=== PATIENT | female | born 1990 | race Caucasian/White ===

== ENCOUNTER → 2016-11-16 | Outpatient (CLI) | payer MEDICAID ==
--- NOTE | 2016-11-16 12:40 | Diagnostic Imaging Report ---
Indication: Finger pain after injury. Comparison: None available. Technique: 3 views of the right fifth digit. Findings: 1. No acute fracture or traumatic malalignment. Joint spaces are well-maintained. No osseous erosions. Mild soft tissue swelling. No radiopaque foreign body. Impression: 1. No acute fracture or traumatic malalignment of the right small finger. Report was called to Poppy/DAPHNE Carolina by sharyn at 12:42 p.m. Dictated by: Dictated on workstation # [id number]
== END ==
LOC: RAD 12:12
PROVIDERS: ATTEND Nurse Practitioner Family
DX: M79.644 Pain in right finger(s) (principal); X58.XXXA Exposure to other specified factors, initial encounter
CPT/HCPCS: 73140

== ENCOUNTER 2017-01-04 16:07 | Emergency (ER) | payer MEDICAID ==
[~2017-01-04] VITALS: Ht 167.6 cm; Wt 86.2 kg
--- NOTE | 2017-01-04 16:12 | ED GU-Female ---
General Stated Complaint: HEAVY VAG BLEEDING/ABD/LOWER BACK PAIN Source: patient, family Exam Limitations: no limitations History of Present Illness Time seen by provider: 16:11 Initial Comments This 26-year-old female presents with heavy vaginal bleeding. Her last normal period was one week ago. The patient has had heavy vaginal bleeding for the last 24 hours. Patient denies passing tissue. She has been using control pills. Patient's a white female. Her last was born 9 months ago. Allergies and Home Medications Allergies Uncoded Allergies: PENICILLIN (Allergy, Unknown, 01/04/17) Constitutional: No chills, No fever EENTM: No ear pain, No vision loss Respiratory: No cough, No short of breath Cardiovascular: No chest pain Gastrointestinal: No abdominal pain, No diarrhea, No nausea, No vomiting Genitourinary: denies burning, denies dysuria, denies frequency, pain ( cramping pelvic pain with associated vaginal bleeding) Musculoskeletal: back pain Skin: No change in color, No rash Psychiatric/Neurological: No Symptoms Reported Endocrine: No Symptoms Reported Hematologic/Lymphatic: No Symptoms Reported Past Icymdse-Lujoyc-Yhajut Hx Patient Social History Recent Foreign Travel: No Contact w/Someone Who Travel: No Reviewed Nursing Assessment Reviewed/Agree w Nursing PMH: Yes Physical Exam Vital Signs Vital Sign - Last 12Hours 01/04/17 16:17 Temp 98.6 Pulse 88 Resp 14 B/P (MAP) 123/81 Pulse Ox 98 O2 Delivery Room Air Capillary Refill : General Appearance: WD/WN, no apparent distress HEENT: normal ENT inspection Neck: normal inspection Cardiovascular: normal peripheral pulses, regular rate, rhythm, no murmur Respiratory: chest non-tender, lungs clear, normal breath sounds Gastrointestinal: non tender, soft Pelvic: normal external exam, vaginal bleeding (the os is closed there is a small amount of vaginal bleeding present in the vaginal vault. The uterus was essentially unremarkable on bimanual exam. There was no cervical motion tenderness. No adnexal masses were appreciated.) Back: normal inspection Extremities: normal range of motion, normal inspection Neurologic/Psychiatric: no motor/sensory deficits, alert, normal mood/affect Skin: normal color, warm/dry Progress/Results/Core Measures Results/Orders Lab Results Laboratory Tests Test 01/04/17 16:25 01/04/17 16:32 Range/Units White Blood Count 7.8 4.3-11.0 10^3/uL Red Blood Count 5.09 4.35-5.85 10^6/uL Hemoglobin 13.6 11.5-16.0 G/DL Hematocrit 41 35-52 % Mean Corpuscular Volume 81 80-99 FL Mean Corpuscular Hemoglobin 27 25-34 PG Mean Corpuscular Hemoglobin Concent 33 32-36 G/DL Red Cell Distribution Width 13.9 10.0-14.5 % Platelet Count 267 130-400 10^3/uL Mean Platelet Volume 11.4 H 7.4-10.4 FL Neutrophils (%) (Auto) 59 42-75 % Lymphocytes (%) (Auto) 31 12-44 % Monocytes (%) (Auto) 8 0-12 % Eosinophils (%) (Auto) 2 0-10 % Basophils (%) (Auto) 1 0-10 % Neutrophils # (Auto) 4.6 1.8-7.8 X 10^3 Lymphocytes # (Auto) 2.4 1.0-4.0 X 10^3 Monocytes # (Auto) 0.7 0.0-1.0 X 10^3 Eosinophils # (Auto) 0.2 0.0-0.3 10^3/uL Basophils # (Auto) 0.0 0.0-0.1 10^3/uL Urine Test NEGATIVE NEGATIVE My Orders Orders - NIKHIL LEMUS MD Cbc With Automated Diff (01/04/17 16:10) Hcg,Qualitative Urine (01/04/17 16:10) Ketorolac Injection (Toradol Injection) (01/04/17 16:45) Medications Given in ED Current Medications Medications Dose Ordered Sig/Denia Route Start Time Stop Time Status Last Admin Dose Admin Ketorolac Tromethamine 60 mg ONCE ONCE IM 01/04/17 16:45 01/04/17 16:46 DC 01/04/17 16:45 60 MG Vital Signs/I&O Vital Sign - Last 12Hours 01/04/17 16:17 Temp 98.6 Pulse 88 Resp 14 B/P (MAP) 123/81 Pulse Ox 98 O2 Delivery Room Air Progress Note : Time: 16:46 Progress Note The patient received 60 mg of Toradol IM. 1700 hours. The patient's pain was significantly improved with the Toradol. Patient's urine test was negative. Her CBC was unremarkable. I discussed findings with patient and family. The patient was agreeable to following up with [facility]. I recommended oral Toradol for any residual discomfort. I asked that she return if she had any acute problems or questions. I discussed possibility of an ultrasound for further evaluation if needed. Departure Impression Impression: Primary Impression: Dysfunctional uterine bleeding Disposition: HOME, SELF-CARE Condition: Improved Departure-Patient Inst. Decision time for Depature: 17:07 [place] [facility] [place] Primary Care Physician Patient Instructions: IRREGULAR VAGINAL BLEEDING Add. Discharge Instructions: Close follow-up with critical access hospital tomorrow. Toradol for pain. Return if any problems. NIKHIL LEMUS MD Jan 04, 2017 16:12
[2017-01-04 16:36] LABS: BASOPHILS % (AUTO) 1 % (0-10); EOSINOPHILS # (AUTO) 0.2 10^3/uL (0.0-0.3); EOSINOPHILS % (AUTO) 2 % (0-10); LYMPHOCYTES # (AUTO) 2.4 X 10^3 (1.0-4.0); LYMPHOCYTES % (AUTO) 31 % (12-44); MEAN CORPUSCULAR HEMOGLOBIN 27 PG (25-34); MEAN CORPUSCULAR HGB CONC 33 G/DL (32-36); MEAN CORPUSCULAR VOLUME 81 FL (80-99); MEAN PLATELET VOLUME 11.4 FL (7.4-10.4); MONOCYTES # (AUTO) 0.7 X 10^3 (0.0-1.0); MONOCYTES % (AUTO) 8 % (0-12); NEUTROPHILS # (AUTO) 4.6 X 10^3 (1.8-7.8); NEUTROPHILS % (AUTO) 59 % (42-75); PLATELET COUNT 267 10^3/uL (130-400); RED BLOOD COUNT 5.09 10^6/uL (4.35-5.85); RED CELL DISTRIBUTION WIDTH 13.9 % (10.0-14.5); WHITE BLOOD COUNT 7.8 10^3/uL (4.3-11.0)
[2017-01-04] MEDS ORDERED: KETOROLAC 60 MG/2 ML VIAL IM ONE (16:45)
[2017-01-04 17:13] VITALS: BP 123/81
== END 2017-01-04 17:15 | disposition home or self-care (01) ==
LOC: EDUNIT# 16:07 → ER 16:09
DX: N93.8 Other specified abnormal uterine and vaginal bleeding (principal)
CPT/HCPCS: 36415; 84703; 85025; 96372; 99284

== ENCOUNTER → 2017-01-13 | Outpatient (CLI) | payer MEDICAID ==
--- NOTE | 2017-01-13 12:48 | Diagnostic Imaging Report ---
INDICATION: Dysfunctional uterine bleeding. FINDINGS: Uterus measures 7.8 x 6.4 x 4.8 cm. There are no myometrial masses. Endometrial stripe measures 4 mm. Right ovary measures 4.9 x 2.5 x 3.2 cm. Left ovary measures 4.1 x 2.6 x 3.6 cm. There are follicular cysts within both ovaries. No adnexal masses are present. IMPRESSION: Normal pelvic ultrasound. Dictated by: Dictated on workstation # [id number]
== END ==
LOC: RAD 09:46
PROVIDERS: ATTEND Nurse Practitioner Community Health
DX: N93.8 Other specified abnormal uterine and vaginal bleeding (principal)
CPT/HCPCS: 76830

== ENCOUNTER 2017-05-27 13:38 | Emergency (ER) | payer SELFPAY ==
[~2017-05-27] VITALS: Ht 167.6 cm; Wt 88.9 kg
[2017-05-27] MEDS ORDERED: PNV1TABL9 PO (14:42)
[2017-05-27 15:50] LABS: BASOPHILS % (AUTO) 1 % (0-10); EOSINOPHILS # (AUTO) 0.1 10^3/uL (0.0-0.3); EOSINOPHILS % (AUTO) 2 % (0-10); LYMPHOCYTES # (AUTO) 1.9 X 10^3 (1.0-4.0); LYMPHOCYTES % (AUTO) 29 % (12-44); MEAN CORPUSCULAR HEMOGLOBIN 26 PG (25-34); MEAN CORPUSCULAR HGB CONC 33 G/DL (32-36); MEAN CORPUSCULAR VOLUME 80 FL (80-99); MEAN PLATELET VOLUME 11.9 FL (7.4-10.4); MONOCYTES # (AUTO) 0.4 X 10^3 (0.0-1.0); MONOCYTES % (AUTO) 6 % (0-12); NEUTROPHILS # (AUTO) 4.2 X 10^3 (1.8-7.8); NEUTROPHILS % (AUTO) 63 % (42-75); PLATELET COUNT 244 10^3/uL (130-400); RED BLOOD COUNT 4.92 10^6/uL (4.35-5.85); RED CELL DISTRIBUTION WIDTH 14.1 % (10.0-14.5); WHITE BLOOD COUNT 6.7 10^3/uL (4.3-11.0)
[2017-05-27 16:09] LABS: ALANINE AMINOTRANSFERASE 7 U/L (0-55); ALBUMIN 3.8 GM/DL (3.2-4.5); ANION GAP 7 MMOL/L (5-14); ASPARTATE AMINO TRANSFERASE 13 U/L (5-34); BILIRUBIN,TOTAL 0.3 MG/DL (0.1-1.0); BLOOD UREA NITROGEN 8 MG/DL (7-18); BUN/CREATININE RATIO 12; CALCIUM 9.2 MG/DL (8.5-10.1); CARBON DIOXIDE 26 MMOL/L (21-32); CHLORIDE 109 MMOL/L (98-107); CREATININE SERUM 0.66 MG/DL (0.60-1.30); GFR ESTIMATED > 60; GLUCOSE 88 MG/DL (70-105); POTASSIUM 3.9 MMOL/L (3.6-5.0); SODIUM 142 MMOL/L (135-145)
[2017-05-27 16:32] LABS: BILIRUBIN,URINE NEGATIVE (NEGATIVE); KETONES,URINE 1+ (NEGATIVE); LEUKOCYTE ESTERASE ,URINE 1+ (NEGATIVE); NITRITE,URINE NEGATIVE (NEGATIVE); PH,URINE 6 (5-9); PROTEIN,URINE NEGATIVE (NEGATIVE); UROBILINOGEN,URINE NORMAL (NORMAL)
[2017-05-27] MEDS ORDERED: diphenhydrAMINE 50 MG/ML INJ (BENADRYL) IV STA (16:48)
[2017-05-27] MEDS ORDERED: KETOROLAC 60 MG/2 ML VIAL IM STA (16:48)
[2017-05-27] MEDS ORDERED: ONDANSETRON 4 MG (ZOFRAN) ORAL DISSOLVE TAB SL STA (16:48)
[2017-05-27] MEDS ORDERED: DEXAMETHASONE PF 10 MG/ML (DECADRON) VIAL IM STA (16:48)
[2017-05-27] MEDS ORDERED: DEXAMETHASONE 10 MG/ML (DECADRON) 1 ML VIAL ONE (17:01)
[2017-05-27] MEDS ORDERED: diphenhydrAMINE 50 MG/ML INJ (BENADRYL) IM ONE (17:15)
--- NOTE | 2017-05-27 17:41 | ED GI ---
General Chief Complaint: General Problems/Pain Stated Complaint: N,V,D Nursing Triage Note: Vomiting for 1 1/2wks, reports that she may be , also having vag bleeding. Headache started this morning Sepsis Screen: No Definite Risk History of Present Illness Time Seen By Provider: 15:00 Initial Comments 26-year-old female Patient complains of vomiting for approximately one to 2 weeks, it's intermittent some days it will be 1-2 times other days it will be 3-4. She states she's had previous history of gallbladder disease and been told she needed to have it removed. She also reports that she believes she is , and that in the past it has been 5 months before her test by urine will be positive. She was taking oral contraceptives and stopped at midcycle because of the nausea. She reports eating normal meals today. Her LMP was May 17. She is also requesting a note for work. Timing/Duration: Changing Over Time Severity/Quality: Mild Location: Generalized Abdomen Radiation: No Radiation, LLQ Modifying Factors: Improves With Resting Associated Symptoms: No Back Pain, No Chest Pain, No Diaphoresis, No Fever/ Chills, No Fatigue, Headache, No Heartburn, Nausea/Vomiting, No Rash, No Shortness of Air, No Swelling/Mass in Abdomen, No Syncope, No Weakness Allergies and Home Medications Allergies Coded Allergies: Penicillins (Unverified Allergy, Unknown, 05/27/17) aripiprazole (Unverified Allergy, Unknown, 05/27/17) Home Medications Ondansetron 8 Mg Tab.rapdis, 8 MG PO Q8H, #6 Ref 0 Prescribed by: LITZY LOCKHART on 05/27/17 4642 Pnv Cmb#21/Iron/Folic Acid 1 Each Tablet, 1 EACH PO DAILY, (Reported) Review of Systems Constitutional: no symptoms reported Gastrointestinal: See HPI, Nausea, Vomiting Genitourinary: See HPI, Discharge (vaginal bleeding) Psychiatric/Neurological: See HPI, Headache All Other Systems Reviewed Negative Unless Noted: Yes Past Grvoouk-Qukemt-Wiinla Hx Patient Social History Alcohol Use: Rarely Uses Recreational Drug Use: No Smoking Status: Former Smoker Former Smoker, Quit: Jun 22, 2011 Recent Foreign Travel: No Contact w/Someone Who Travel: No Recent Infectious Disease Expo: No Recent Hopitalizations: No Immunizations Up To Date Date of Influenza Vaccine: Mar 22, 2017 Seasonal Allergies Seasonal Allergies: No Surgeries History of Surgeries: Yes (eye surgery) Surgeries: Section Respiratory History of Respiratory Disorde: No Cardiovascular History of Cardiac Disorders: No Neurological History of Neurological Disord: No Reproductive System Last Menstrual Period: May 17, 2017 Hx : 5 Hx Para: 3 Female Reproductive Disorders: Polycystic Ovarian Dis Genitourinary History of Genitourinary Disor: No Gastrointestinal History of Gastrointestinal Di: No Musculoskeletal History of Musculoskeletal Dis: No Endocrine History of Endocrine Disorders: No HEENT History of HEENT Disorders: No Cancer History of Cancer: No Psychosocial History of Psychiatric Problem: No Integumentary History of Skin or Integumenta: Yes Blood Transfusions History of Blood Disorders: No Physical Exam Vital Signs VS - Last 72 Hours, by Label 05/27/17 05/27/17 14:17 17:49 Temp 98.7 Pulse 84 66 Resp 16 18 B/P (MAP) 150/65 (93) Pulse Ox 97 98 O2 Delivery Room Air Capillary Refill : Less Than 3 Seconds General Appearance: WD/WN, no apparent distress HEENT: PERRL/EOMI, normal ENT inspection, TMs normal, pharynx normal, No photophobia Neck: non-tender, full range of motion, supple, normal inspection Respiratory: chest non-tender, lungs clear, normal breath sounds Cardiovascular: normal peripheral pulses, regular rate, rhythm, no murmur Gastrointestinal: normal bowel sounds, soft, No distended, No guarding, No rebound, tenderness (general lysed), other (negative Meza sign) Extremities: normal range of motion, non-tender, normal inspection Back: normal inspection, no CVA tenderness, no vertebral tenderness Neurologic/Psychiatric: no motor/sensory deficits, alert, normal mood/affect, oriented x 3 Skin: normal color, warm/dry Progress/Results/Core Measures Results/Orders Lab Results Laboratory Tests Test 05/27/17 15:35 05/27/17 15:43 05/27/17 16:20 Range/Units Serum Test, Qualitative NEGATIVE NEGATIVE White Blood Count 6.7 4.3-11.0 10^3/uL Red Blood Count 4.92 4.35-5.85 10^6/uL Hemoglobin 12.8 11.5-16.0 G/DL Hematocrit 39 35-52 % Mean Corpuscular Volume 80 80-99 FL Mean Corpuscular Hemoglobin 26 25-34 PG Mean Corpuscular Hemoglobin Concent 33 32-36 G/DL Red Cell Distribution Width 14.1 10.0-14.5 % Platelet Count 244 130-400 10^3/uL Mean Platelet Volume 11.9 H 7.4-10.4 FL Neutrophils (%) (Auto) 63 42-75 % Lymphocytes (%) (Auto) 29 12-44 % Monocytes (%) (Auto) 6 0-12 % Eosinophils (%) (Auto) 2 0-10 % Basophils (%) (Auto) 1 0-10 % Neutrophils # (Auto) 4.2 1.8-7.8 X 10^3 Lymphocytes # (Auto) 1.9 1.0-4.0 X 10^3 Monocytes # (Auto) 0.4 0.0-1.0 X 10^3 Eosinophils # (Auto) 0.1 0.0-0.3 10^3/uL Basophils # (Auto) 0.0 0.0-0.1 10^3/uL Sodium Level 142 135-145 MMOL/L Potassium Level 3.9 3.6-5.0 MMOL/L Chloride Level 109 H 98-107 MMOL/L Carbon Dioxide Level 26 21-32 MMOL/L Anion Gap 7 5-14 MMOL/L Blood Urea Nitrogen 8 7-18 MG/DL Creatinine 0.66 0.60-1.30 MG/DL Estimat Glomerular Filtration Rate > 60 BUN/Creatinine Ratio 12 Glucose Level 88 70-105 MG/DL Calcium Level 9.2 8.5-10.1 MG/DL Total Bilirubin 0.3 0.1-1.0 MG/DL Aspartate Amino Transf (AST/SGOT) 13 5-34 U/L Alanine Aminotransferase (ALT/SGPT) 7 0-55 U/L Alkaline Phosphatase 92 40-136 U/L Total Protein 7.0 6.4-8.2 GM/DL Albumin 3.8 3.2-4.5 GM/DL Urine Color YELLOW Urine Clarity SLIGHTLY CLOUDY Urine pH 6 5-9 Urine Specific [place]field 1.025 H 1.016-1.022 Urine Protein NEGATIVE NEGATIVE Urine Glucose (UA) NEGATIVE NEGATIVE Urine Ketones 1+ H NEGATIVE Urine Nitrite NEGATIVE NEGATIVE Urine Bilirubin NEGATIVE NEGATIVE Urine Urobilinogen NORMAL NORMAL MG/DL Urine Leukocyte Esterase 1+ H NEGATIVE Urine RBC (Auto) 5+ H NEGATIVE Urine RBC 5-10 H /HPF Urine WBC 2-5 /HPF Urine Squamous Epithelial Cells 10-25 H /HPF Urine Crystals NONE /LPF Urine Bacteria MODERATE H /HPF Urine Casts NONE /LPF Urine Mucus MODERATE H /LPF Urine Culture Indicated NO My Orders Orders - RICHYLITZY Cbc With Automated Diff (05/27/17 14:51) Comprehensive Metabolic Panel (05/27/17 14:51) Ua Culture If Indicated (05/27/17 14:51) Hcg,Qualitative Serum (05/27/17 15:45) Ketorolac Injection (Toradol Injection) (05/27/17 16:48) Diphenhydramine Injection (Benadryl Inje (05/27/17 16:48) Dexamethasone Pf Injection (Decadron Pf (05/27/17 16:48) Ondansetron Oral Dissolve Tab (Zofran (05/27/17 16:48) Dexamethasone Injection (Decadron Inject (05/27/17 17:01) Diphenhydramine Injection (Benadryl Inje (05/27/17 17:15) Medications Given in ED Current Medications Medications Dose Ordered Sig/Denia Route Start Time Stop Time Status Last Admin Dose Admin Dexamethasone Sodium Phosphate 10 mg STK-MED ONCE .ROUTE 05/27/17 17:01 05/27/17 17:03 DC 05/27/17 17:16 10 MG Diphenhydramine HCl 50 mg ONCE ONCE IM 05/27/17 17:15 05/27/17 17:16 DC 05/27/17 17:17 50 MG Vital Signs/I&O Vital Sign - Last 12Hours 05/27/17 05/27/17 14:17 17:49 Temp 98.7 Pulse 84 66 Resp 16 18 B/P (MAP) 150/65 (93) Pulse Ox 97 98 O2 Delivery Room Air Blood Pressure Mean: 93 Progress Note : Time: 15:00 Progress Note Initial evaluation completed, recommended labs and normal saline 1 L IV. Patient denies need for medication for nausea. 1600 labs all essentially negative, serum hCG negative. Discussed results with the patient. UA obtained. Discussed at length with patient that the vaginal bleeding could be result of her stopping oral contraceptives midcycle. 1640 Patient complaining headache at the present time, Toradol 30 mg, Decadron 10 mg, Benadryl 25 mg all to be given IV. Zofran 4 mg by mouth. 1700 patient reports improvement of symptoms, discharge planning reviewed and return precautions discussed. All questions answered. Encouraged follow-up with Kenny Rush APRN if continued nausea and vomiting or abdominal pain. Discussed follow-up with Dr. Murry if continued irregular menstrual cycles. Encouraged patient to begin vitamins, since stopping oral contraceptives and using no other barrier method for intercourse. Departure Impression Impression: Primary Impression: Nausea and vomiting Qualified Codes: G43.A1 - Cyclical vomiting, intractable Additional Impressions: Headache Qualified Codes: G44.011 - Episodic cluster headache, intractable Vaginal bleeding Disposition: HOME, SELF-CARE Condition: Improved Departure-Patient Inst. Decision time for Depature: 17:00 Referrals: [facility] (PCP/Family) Primary Care Physician Patient Instructions: Headache, Adult (DC), IRREGULAR VAGINAL BLEEDING, Nausea and Vomiting, Adult (DC) Add. Discharge Instructions: Follow-up with Dr. Murry for irregular menstrual cycles. Follow-up with Kenny Rush APRN, for abdominal pain and headaches. Take ibuprofen 600 mg alternating with Tylenol 650 mg every 4 hours for headache. Use been prescribed Zofran to take every 6-8 hours as needed for nausea and vomiting. There liquids diet for the next 4 hours then progress to bland food and then regular diet. Return to emergency department for fever greater than 101 not relieved with Tylenol or ibuprofen, continuous vomiting, or new problems. Begin taking vitamin, one daily if not on control. All discharge instructions reviewed with patient and/or family. Voiced understanding. Scripts Ondansetron (Zofran Odt) 8 Mg Tab.rapdis 8 MG PO Q8H, #6 TAB 0 Refills Prov: LITZY LOCKHART 05/27/17 Copy Copies To 1: RADHA ARGUELLES MD; DONALD MURRY AMY ARNP May 27, 2017 17:41
[2017-05-27 17:49] VITALS: BP 107/77
[2017-05-27] MEDS ORDERED: ONDA8TAB9 PO (17:52)
== END 2017-05-27 17:49 | disposition home or self-care (01) ==
LOC: EDUNIT# 13:38 → ER 13:40
DX: N93.9 Abnormal uterine and vaginal bleeding, unspecified (principal); R51 Headache; R11.2 Nausea with vomiting, unspecified; Z87.891 Personal history of nicotine dependence; Z87.19 Personal history of other diseases of the digestive system; Z87.59 Personal history of other complications of pregnancy, childbirth and the puerperium; Z87.448 Personal history of other diseases of urinary system
CPT/HCPCS: 36415; 80053; 81000; 84703; 85025; 99284

== ENCOUNTER 2017-08-15 20:31 | Emergency (ER) | payer SELFPAY ==
[~2017-08-15] VITALS: Ht 167.6 cm; Wt 83.9 kg
[~2017-08-15 20:31] MED LIST: ONDA8TAB9 PO; PNV1TABL9 PO
--- OUTSIDE RECORDS SUMMARY | 2017-08-15 20:37 | XMS REPORT ---
Author Author AHSAN SUTTON Organization [facility] Address [address] [place] [address] Care Team Providers Care Nurse First Aid Name Role Phone AHSAN SUTTON Unavailable PROBLEMS Type Condition ICD9-CM Code [id number] Code Onset Dates Condition Status SNOMED Code Problem Mood disorder F39 Active 51528131 Problem Uterine bleeding, dysfunctional N93.8 Active 79374072 Problem Lumbago with sciatica, left side M54.42 Active 704053048 Problem Major depressive disorder, recurrent episode, moderate F33.1 Active 823307110 Problem Post traumatic stress disorder (PTSD) F43.10 Active 42304778 Problem Pain at surgical incision R20.8 Active 90127872 Problem Allergic rhinitis, unspecified allergic rhinitis trigger, unspecified rhinitis seasonality J30.9 Active 43308715 ALLERGIES Substance Reaction Event Type Date Status Penicillin V Potassium Unknown Drug Allergy Aug, Active SOCIAL HISTORY Never Assessed PLAN OF CARE Activity Details Follow Up prn Reason: VITAL SIGNS Height 67 in 2016-08-30 Weight 196 lbs 2016-08-30 Temperature 98.6 degrees Fahrenheit 2016-08-30 Heart Rate 66 bpm 2016-08-30 Respiratory Rate 22 2016-08-30 BMI 30.69 kg/m2 2016-08-30 Blood pressure systolic 112 mmHg 2016-08-30 Blood pressure diastolic 72 mmHg 2016-08-30 MEDICATIONS Medication Instructions Dosage Frequency Start Date End Date Duration Status Fioricet 50-300-40 MG Orally every 4 hrs 1 capsule as needed 4h Aug, Aug, 2 days Active Ibuprofen Active Vallejo 5-325 MG Orally every 6 hrs 1 tablet as needed 6h 4 days Active Ortho Micronor 0.35 MG Orally Once a day 1 tablet 24h Jun, Active Excedrin Migraine Active Vitamins 0.8 MG Orally Once a day 1 tablet 24h Active RESULTS No Results PROCEDURES No Known procedures IMMUNIZATIONS No Known Immunizations MEDICAL (GENERAL) HISTORY Type Description Date Medical History renal stones Surgical History eye surgies multiple Surgical History Right hip scope 05/2008 Surgical History C- sec 2013 Surgical History repeat C-Sec 2016 Surgical History lithotripsy- done in [place] Hospitalization History surgeries Hospitalization History childbirth
--- OUTSIDE RECORDS SUMMARY | 2017-08-15 20:37 | XMS REPORT ---
Author Author FRAN MCGUIRE Organization [facility] Address [address] [place] [address] Care Team Providers Care Commercial Property Administrator Name Role Phone FRAN MCGUIRE Unavailable PROBLEMS Type Condition ICD9-CM Code [id number] Code Onset Dates Condition Status SNOMED Code Problem Mood disorder F39 Active 59033452 Problem Uterine bleeding, dysfunctional N93.8 Active 95006184 Problem Lumbago with sciatica, left side M54.42 Active 564206722 Problem Major depressive disorder, recurrent episode, moderate F33.1 Active 396317599 Problem Post traumatic stress disorder (PTSD) F43.10 Active 10552367 Problem Pain at surgical incision R20.8 Active 69313343 Problem Allergic rhinitis, unspecified allergic rhinitis trigger, unspecified rhinitis seasonality J30.9 Active 23239492 ALLERGIES Substance Reaction Event Type Date Status Penicillin V Potassium Unknown Drug Allergy Jun, Active SOCIAL HISTORY Never Assessed PLAN OF CARE Activity Details Follow Up prn with PCP Victor Manuel Reason: VITAL SIGNS Height 67 in 2016-07-15 Weight 188.7 lbs 2016-07-15 Temperature 99.0 degrees Fahrenheit 2016-07-15 Heart Rate 76 bpm 2016-07-15 Respiratory Rate 20 2016-07-15 BMI 29.55 kg/m2 2016-07-15 Blood pressure systolic 100 mmHg 2016-07-15 Blood pressure diastolic 68 mmHg 2016-07-15 MEDICATIONS Medication Instructions Dosage Frequency Start Date End Date Duration Status Ortho Micronor 0.35 MG Orally Once a day 1 tablet 24h Jun, Active Vitamins 0.8 MG Orally Once a day 1 tablet 24h Active RESULTS No Results PROCEDURES No Known procedures IMMUNIZATIONS No Known Immunizations MEDICAL (GENERAL) HISTORY Type Description Date Medical History renal stones Surgical History eye surgies multiple Surgical History Right hip scope 05/2008 Surgical History C- sec 2013 Surgical History repeat C-Sec 2015 Surgical History lithotripsy- done in [place] Hospitalization History surgeries Hospitalization History childbirth
--- OUTSIDE RECORDS SUMMARY | 2017-08-15 20:37 | XMS REPORT ---
Author Author ALBINO CARLOS [facility] Address [address] [place] [address] Care Team Providers Care Elevator Tender Name Role Phone ALBINO CARLOS Unavailable PROBLEMS Type Condition ICD9-CM Code FRH07-NM Code Onset Dates Condition Status SNOMED Code Problem Mood disorder F39 Active 27480654 Problem Uterine bleeding, dysfunctional N93.8 Active 41727741 Problem Lumbago with sciatica, left side M54.42 Active 119247675 Problem Major depressive disorder, recurrent episode, moderate F33.1 Active 119326538 Problem Post traumatic stress disorder (PTSD) F43.10 Active 96685916 Problem Pain at surgical incision R20.8 Active 17779539 Problem Allergic rhinitis, unspecified allergic rhinitis trigger, unspecified rhinitis seasonality J30.9 Active 51583288 ALLERGIES Substance Reaction Event Type Date Status Penicillin V Potassium Unknown Drug Allergy Jun, Active SOCIAL HISTORY No smoking Hx information available PLAN OF CARE VITAL SIGNS Height 67 in 2016-06-23 Weight 183.3 lbs 2016-06-23 Temperature 98.2 degrees Fahrenheit 2016-06-23 Heart Rate 82 bpm 2016-06-23 Respiratory Rate 18 2016-06-23 BMI 28.71 kg/m2 2016-06-23 Blood pressure systolic 102 mmHg 2016-06-23 Blood pressure diastolic 74 mmHg 2016-06-23 MEDICATIONS Medication Instructions Dosage Frequency Start Date End Date Duration Status Vitamins 0.8 MG Orally Once a day 1 tablet 24h Active Moodus 5-325 MG Orally every 6 hrs 1 tablet as needed 6h Jun, Active RESULTS Name Result Date Reference Range CMP 2016-06-23 Glucose, Serum 62 65-99 BUN 11 6-20 Creatinine, Serum 0.65 0.57-1.00 eGFR If NonAfricn Am 124 >59 eGFR If Africn Am 143 >59 BUN/Creatinine Ratio 17 8-20 Sodium, Serum 139 134-144 Potassium, Serum 4.1 3.5-5.2 Chloride, Serum 102 96-106 Carbon Dioxide, Total 22 18-29 Calcium, Serum 9.2 8.7-10.2 Protein, Total, Serum 6.9 6.0-8.5 Albumin, Serum 4.3 3.5-5.5 Globulin, Total 2.6 1.5-4.5 A/G Ratio 1.7 1.1-2.5 Bilirubin, Total <0.2 0.0-1.2 Alkaline Phosphatase, S 90 39-117 AST (SGOT) 18 0-40 ALT (SGPT) 23 0-32 CBC 2016-06-23 WBC 6.8 3.4-10.8 RBC 5.06 3.77-5.28 Hemoglobin 12.8 11.1-15.9 Hematocrit 39.4 34.0-46.6 MCV 78 79-97 MCH 25.3 26.6-33.0 MCHC 32.5 31.5-35.7 RDW 17.6 12.3-15.4 Platelets 214 150-379 Neutrophils 52 Lymphs 38 Monocytes 6 Eos 4 Basos 0 Neutrophils (Absolute) 3.5 1.4-7.0 Lymphs (Absolute) 2.6 0.7-3.1 Monocytes(Absolute) 0.4 0.1-0.9 Eos (Absolute) 0.3 0.0-0.4 Baso (Absolute) 0.0 0.0-0.2 Immature Granulocytes 0 Immature Grans (Abs) 0.0 0.0-0.1 PROCEDURES Procedure Date Ordered Related Diagnosis Body Site Office Visit, Est Pt., Level 3 Jun 23, 2016 LAB NOT BILL[facility] Jun 23, 2016 VENIPUNCT, ROUTINE* Jun 23, 2016 IMMUNIZATIONS No Known Immunizations
--- OUTSIDE RECORDS SUMMARY | 2017-08-15 20:37 | XMS REPORT ---
Author Author DINA LAYA Organization [facility] Address [address] [place] [address] Care Team Providers Care Bilingual Case Manager Name Role Phone ARROYOLAYA Powell Unavailable PROBLEMS Type Condition ICD9-CM Code [id number] Code Onset Dates Condition Status SNOMED Code Problem Mood disorder F39 Active 08395477 Problem Uterine bleeding, dysfunctional N93.8 Active 65500190 Problem Lumbago with sciatica, left side M54.42 Active 168781043 Problem Major depressive disorder, recurrent episode, moderate F33.1 Active 564874976 Problem Post traumatic stress disorder (PTSD) F43.10 Active 05686547 Problem Pain at surgical incision R20.8 Active 21852213 Problem Allergic rhinitis, unspecified allergic rhinitis trigger, unspecified rhinitis seasonality J30.9 Active 65535314 ALLERGIES Substance Reaction Event Type Date Status Penicillin V Potassium Unknown Drug Allergy May, Active SOCIAL HISTORY No smoking Hx information available PLAN OF CARE Activity Details Follow Up prn Reason: VITAL SIGNS Height 67 in 2016-06-20 Weight 180 lbs 2016-06-20 Temperature 99.0 degrees Fahrenheit 2016-06-20 Heart Rate 80 bpm 2016-06-20 Respiratory Rate 20 2016-06-20 BMI 28.19 kg/m2 2016-06-20 Blood pressure systolic 92 mmHg 2016-06-20 Blood pressure diastolic 60 mmHg 2016-06-20 MEDICATIONS Medication Instructions Dosage Frequency Start Date End Date Duration Status Vitamins 0.8 MG Orally Once a day 1 tablet 24h Active RESULTS Name Result Date Reference Range UA LONG DIP (IN HOUSE) 2016-06-20 Lot # [id number] Exp date 05/08 Clarity clear Color yellow Odor none GLU negative ELA negative KET negative SG 1.020 BLO trace-intact pH 5.5 Protein negative URO 0.2 NIT negative IRMA negative Lot # Exp date CT Scan : Abd & Pelvis w/o contrast (STONE PROTOCOL) 2016-06-20 PROCEDURES Procedure Date Ordered Related Diagnosis Body Site Office Visit, Est Pt., Level 3 Jun 20, 2016 URINALYSIS, AUTO, W/O SCOPE Jun 20, 2016 IMMUNIZATIONS No Known Immunizations
--- OUTSIDE RECORDS SUMMARY | 2017-08-15 20:37 | XMS REPORT ---
Author Author ALBINO CARLOS Organization [facility] Address [address] [place] [address] Care Team Providers Care Production Line Assembler Name Role Phone ALBINO CARLOS Unavailable PROBLEMS Type Condition ICD9-CM Code [id number]-[id number] Code Onset Dates Condition Status SNOMED Code Problem Mood disorder F39 Active 83318194 Problem Uterine bleeding, dysfunctional N93.8 Active 43181048 Problem Lumbago with sciatica, left side M54.42 Active 909365078 Problem Major depressive disorder, recurrent episode, moderate F33.1 Active 006969900 Problem Post traumatic stress disorder (PTSD) F43.10 Active 72241425 Problem Pain at surgical incision R20.8 Active 28354508 Problem Allergic rhinitis, unspecified allergic rhinitis trigger, unspecified rhinitis seasonality J30.9 Active 49541424 ALLERGIES Unknown Allergies SOCIAL HISTORY No smoking Hx information available PLAN OF CARE VITAL SIGNS MEDICATIONS Unknown Medications RESULTS Name Result Date Reference Range HEMOCCULT (IN HOUSE)-Additional 2016-07-07 RESULTS Negative Control + Lot # [id number] Exp Date 05/2017 HEMOCCULT (IN HOUSE) 2016-07-07 RESULTS Negative Control + Lot # [id number] Exp date 05/2017 PROCEDURES Procedure Date Ordered Related Diagnosis Body Site TEST FOR BLOOD, FECES Jul 07, 2016 IMMUNIZATIONS No Known Immunizations
--- OUTSIDE RECORDS SUMMARY | 2017-08-15 20:37 | XMS REPORT ---
Author Author [facility] Address [address] [place] [address] Care Team Providers Care Yacht Hand Name Role Phone LILIA PIERRE Unavailable PROBLEMS Type Condition ICD9-CM Code [id number] Code Onset Dates Condition Status SNOMED Code Problem Mood disorder F39 Active 12789349 Problem Uterine bleeding, dysfunctional N93.8 Active 91848529 Problem Lumbago with sciatica, left side M54.42 Active 345900467 Problem Major depressive disorder, recurrent episode, moderate F33.1 Active 278844474 Problem Post traumatic stress disorder (PTSD) F43.10 Active 87175754 Problem Pain at surgical incision R20.8 Active 22790052 Problem Allergic rhinitis, unspecified allergic rhinitis trigger, unspecified rhinitis seasonality J30.9 Active 63646296 ALLERGIES Substance Reaction Event Type Date Status Penicillin V Potassium Unknown Drug Allergy Jun, Active SOCIAL HISTORY No smoking Hx information available PLAN OF CARE Activity Details Follow Up BC FU 1 year pelvic Reason: VITAL SIGNS Height 67 in 2016-06-25 Weight 183 lbs 2016-06-25 Temperature 98.8 degrees Fahrenheit 2016-06-25 Heart Rate 80 bpm 2016-06-25 Respiratory Rate 20 2016-06-25 BMI 28.66 kg/m2 2016-06-25 Blood pressure systolic 102 mmHg 2016-06-25 Blood pressure diastolic 60 mmHg 2016-06-25 MEDICATIONS Medication Instructions Dosage Frequency Start Date End Date Duration Status Shirley 5-325 MG Orally every 6 hrs 1 tablet as needed 6h Jun, Active Ortho Micronor 0.35 MG Orally Once a day 1 tablet 24h Jun, Active Vitamins 0.8 MG Orally Once a day 1 tablet 24h Active RESULTS Name Result Date Reference Range TEST, URINE (IN HOUSE) 2016-06-25 RESULTS negative Lot # [id number] Control + Exp date 10/07 CULTURE, GENITAL 2016-06-25 Genital Culture, Routine Final report Result 1 GC/CHLAM PROBE (STATE) 2016-06-25 CHLAMYDIA negative GC negative PROCEDURES Procedure Date Ordered Related Diagnosis Body Site URINE TEST Jun 25, 2016 Preventive Care Est Pt. Age 18-39 Jun 25, 2016 No Charge Jun 25, 2016 [facility] Jun 25, 2016 IMMUNIZATIONS No Known Immunizations
--- OUTSIDE RECORDS SUMMARY | 2017-08-15 20:37 | XMS REPORT ---
Author Author ALFONZO VERDUGO Organization [facility] Address [address] [place] [address] Care Team Providers Care Furnace Setter Name Role Phone ALFONZO VERDUGO Unavailable PROBLEMS Type Condition ICD9-CM Code [id number] Code Onset Dates Condition Status SNOMED Code Problem Post traumatic stress disorder (PTSD) F43.10 Active 00396407 Problem Mood disorder F39 Active 68005415 Problem Other chronic pain G89.29 Active 73230443 Problem Uterine bleeding, dysfunctional N93.8 Active 52850829 Problem Allergic rhinitis, unspecified allergic rhinitis trigger, unspecified rhinitis seasonality J30.9 Active 72730035 Problem Major depressive disorder, recurrent episode, moderate F33.1 Active 502126724 Problem Lumbago with sciatica, left side M54.42 Active 486975737 Problem Pain at surgical incision R20.8 Active 10218646 ALLERGIES No Information SOCIAL HISTORY Never Assessed PLAN OF CARE Activity Details Follow Up 3 Weeks Reason:BH F/U VITAL SIGNS MEDICATIONS Unknown Medications RESULTS No Results PROCEDURES Procedure Date Ordered Result Body Site Psychotherapy, patient &/family, 45 minutes, established patient November 12, 2016 IMMUNIZATIONS No Known Immunizations MEDICAL (GENERAL) HISTORY Type Description Date Medical History renal stones Surgical History eye surgies multiple Surgical History Right hip scope 05/2008 Surgical History C- sec 2014 Surgical History repeat C-Sec 2016 Surgical History lithotripsy- done in [place] Hospitalization History surgeries Hospitalization History childbirth
--- OUTSIDE RECORDS SUMMARY | 2017-08-15 20:38 | XMS REPORT ---
Author Author AHSAN SUTTON Organization [facility] Address [address] [place] [address] Care Team Providers Care Glove Machine Operator Name Role Phone AHSAN SUTTON Unavailable PROBLEMS Type Condition ICD9-CM Code [id number] Code Onset Dates Condition Status SNOMED Code Problem Mood disorder F39 Active 48542939 Problem Uterine bleeding, dysfunctional N93.8 Active 56925229 Problem Lumbago with sciatica, left side M54.42 Active 979127769 Problem Major depressive disorder, recurrent episode, moderate F33.1 Active 529278786 Problem Post traumatic stress disorder (PTSD) F43.10 Active 40083730 Problem Pain at surgical incision R20.8 Active 51084075 Problem Allergic rhinitis, unspecified allergic rhinitis trigger, unspecified rhinitis seasonality J30.9 Active 10542754 ALLERGIES Substance Reaction Event Type Date Status Penicillin V Potassium Unknown Drug Allergy Jul, Active SOCIAL HISTORY Never Assessed PLAN OF CARE Activity Details Follow Up prn Reason: VITAL SIGNS Height 67 in 2016-08-02 Weight 194.0 lbs 2016-08-02 Temperature 99.4 degrees Fahrenheit 2016-08-02 Heart Rate 80 bpm 2016-08-02 Respiratory Rate 20 2016-08-02 BMI 30.38 kg/m2 2016-08-02 Blood pressure systolic 100 mmHg 2016-08-02 Blood pressure diastolic 68 mmHg 2016-08-02 MEDICATIONS Medication Instructions Dosage Frequency Start Date End Date Duration Status Zofran ODT 4 MG Orally every 8 hrs 1 tablet on the tongue and allow to dissolve 8h Jul, 3 days Active Ortho Micronor 0.35 MG Orally [...] C-Sec 2015 Surgical History lithotripsy- done in [place] Hospitalization History surgeries Hospitalization History childbirth
--- OUTSIDE RECORDS SUMMARY | 2017-08-15 20:38 | XMS REPORT ---
Author Author ALFONZO VERDUGO Organization [facility] Address [address] [place] [address] Care Team Providers Care Search And Rescue Officer Name Role Phone ALFONZO VERDUGO Unavailable PROBLEMS Type Condition ICD9-CM Code [id number] Code Onset Dates Condition Status SNOMED Code Problem Mood disorder F39 Active 82716019 Problem Uterine bleeding, dysfunctional N93.8 Active 71070747 Problem Lumbago with sciatica, left side M54.42 Active 475354846 Problem Major depressive disorder, recurrent episode, moderate F33.1 Active 457307774 Problem Post traumatic stress disorder (PTSD) F43.10 Active 37486395 Problem Pain at surgical incision R20.8 Active 87266047 Problem Allergic rhinitis, unspecified allergic rhinitis trigger, unspecified rhinitis seasonality J30.9 Active 20680766 ALLERGIES No Information SOCIAL HISTORY Never Assessed PLAN OF CARE Activity Details Follow Up 2 Weeks Reason:BH F/U VITAL SIGNS MEDICATIONS Unknown Medications RESULTS No Results PROCEDURES Procedure Date Ordered Result Body Site Psychotherapy, patient &/family, 45 minutes, established patient September 01, 2016 IMMUNIZATIONS No Known Immunizations MEDICAL (GENERAL) HISTORY Type Description Date Medical History renal stones Surgical History eye surgies multiple Surgical History Right hip scope 05/2008 Surgical History C- sec 2013 Surgical History repeat C-Sec 2015 Surgical History lithotripsy- done in [place] Hospitalization History surgeries Hospitalization History childbirth
--- OUTSIDE RECORDS SUMMARY | 2017-08-15 20:38 | XMS REPORT ---
Author Author ETHAN RIOS [facility] Address Unknown Care Team Providers Care Clinic Clerk Name Role Phone ETHAN RIOS Unavailable PROBLEMS Type Condition ICD9-CM Code [id number] Code Onset Dates Condition Status SNOMED Code Problem Mood disorder F39 Active 76240414 Problem Uterine bleeding, dysfunctional N93.8 Active 73668507 Problem Lumbago with sciatica, left side M54.42 Active 353502452 Problem Major depressive disorder, recurrent episode, moderate F33.1 Active 940198734 Problem Post traumatic stress disorder (PTSD) F43.10 Active 92222370 Problem Pain at surgical incision R20.8 Active 28311889 Problem Allergic rhinitis, unspecified allergic rhinitis trigger, unspecified rhinitis seasonality J30.9 Active 38291248 ALLERGIES Substance Reaction Event Type Date Status Penicillin V Potassium Unknown Drug Allergy Jul, Active SOCIAL HISTORY Never Assessed PLAN OF CARE Activity Details Follow Up prn Reason:hygiene VITAL SIGNS Blood pressure systolic 116 mmHg 2016-08-12 Blood pressure diastolic 80 mmHg 2016-08-12 MEDICATIONS Medication Instructions Dosage Frequency Start Date End Date Duration Status Vitamins 0.8 MG Orally Once a day 1 tablet 24h Active Zofran ODT 4 MG Orally every 8 hrs 1 tablet on the tongue and allow to dissolve 8h Jul, 3 days Active Ortho Micronor 0.35 MG Orally Once a day 1 tablet 24h Jun, Active [place] 5-325 MG Orally every 6 hrs 1 tablet as needed 6h 4 days Active RESULTS No Results PROCEDURES Procedure Date Ordered Result Body Site SURG REMOVAL ERUPTED TOOTH Aug 12, 2016 IMMUNIZATIONS No Known Immunizations MEDICAL (GENERAL) HISTORY Type Description Date Medical History renal stones Surgical History eye surgies multiple Surgical History Right hip scope 05/2008 Surgical History C- sec 2013 Surgical History repeat C-Sec 2015 Surgical History lithotripsy- done in [place] Hospitalization History surgeries Hospitalization History childbirth
--- OUTSIDE RECORDS SUMMARY | 2017-08-15 20:38 | XMS REPORT ---
Author Author ALFONZO VERDUGO [facility] Address [address] [place] [address] Care Team Providers Care Occupational Therapy Technician Name Role Phone ALFONZO VERDUGO Unavailable PROBLEMS Type Condition ICD9-CM Code [id number] Code Onset Dates Condition Status SNOMED Code Problem Mood disorder F39 Active 00449545 Problem Uterine bleeding, dysfunctional N93.8 Active 87249868 Problem Lumbago with sciatica, left side M54.42 Active 226252876 Problem Post traumatic stress disorder (PTSD) F43.10 Active 01891412 Problem Major depressive disorder, recurrent episode, moderate F33.1 Active 007709930 Problem Pain at surgical incision R20.8 Active 44195826 Problem Allergic rhinitis, unspecified allergic rhinitis trigger, unspecified rhinitis seasonality J30.9 Active 10171693 ALLERGIES Unknown Allergies SOCIAL HISTORY No smoking Hx information available PLAN OF CARE Activity Details Follow Up 3 Weeks Reason:BH F/U VITAL SIGNS MEDICATIONS Unknown Medications RESULTS No Results PROCEDURES Procedure Date Ordered Related Diagnosis Body Site Psychotherapy, patient &/family, 45 minutes, established patient Jun 05, 2016 IMMUNIZATIONS No Known Immunizations
--- OUTSIDE RECORDS SUMMARY | 2017-08-15 20:38 | XMS REPORT ---
Author Author ALBINO CARLOS [facility] Address [address] [place] [address] Care Team Providers Care Mixed Livestock Farm Worker Name Role Phone ALBINO CARLOS Unavailable PROBLEMS Type Condition ICD9-CM Code [id number] Code Onset Dates Condition Status SNOMED Code Problem Post traumatic stress disorder (PTSD) F43.10 Active 13871975 Problem Mood disorder F39 Active 85925246 Problem Other chronic pain G89.29 Active 54970359 Problem Uterine bleeding, dysfunctional N93.8 Active 84761469 Problem Allergic rhinitis, unspecified allergic rhinitis trigger, unspecified rhinitis seasonality J30.9 Active 04301675 Problem Major depressive disorder, recurrent episode, moderate F33.1 Active 517028427 Problem Lumbago with sciatica, left side M54.42 Active 266787687 Problem Pain at surgical incision R20.8 Active 54401921 ALLERGIES Substance Reaction Event Type Date Status Penicillin V Potassium Unknown Drug Allergy Nov, Active SOCIAL HISTORY Never Assessed PLAN OF CARE VITAL SIGNS Height 67 in 2016-11-21 Weight 197 lbs 2016-11-21 Temperature 98.6 degrees Fahrenheit 2016-11-21 Heart Rate 80 bpm 2016-11-21 Respiratory Rate 20 2016-11-21 BMI 30.85 kg/m2 2016-11-21 Blood pressure systolic 116 mmHg 2016-11-21 Blood pressure diastolic 80 mmHg 2016-11-21 MEDICATIONS Medication Instructions Dosage Frequency Start Date End Date Duration Status Ortho Micronor 0.35 MG Orally Once a day 1 tablet 24h Jun, Active Vitamins 0.8 MG Orally Once a day 1 tablet 24h Active Cyclobenzaprine HCl 10 mg Orally 2 times a day 1 tablet as needed 12h Nov, Active Excedrin Migraine Active ibuprofen 1 tab Active Nystatin 984777 UNIT/GM Externally Twice a day 1 application to affected area 12h Nov, Active PredniSONE 20 MG Orally Once a day 1 tablet 24h Nov, Dec, 30 day(s) Active RESULTS No Results PROCEDURES No Known procedures IMMUNIZATIONS No Known Immunizations MEDICAL (GENERAL) HISTORY Type Description Date Medical History renal stones Surgical History eye surgies multiple Surgical History Right hip scope 05/2008 Surgical History C- sec 2013 Surgical History repeat C-Sec 2015 Surgical History lithotripsy- done in [place] Hospitalization History surgeries Hospitalization History childbirth
--- OUTSIDE RECORDS SUMMARY | 2017-08-15 20:38 | XMS REPORT ---
Author Author ALFONZO VERDUGO Organization [facility] Address [address] [place] [address] Care Team Providers Care Chamber Magistrate Name Role Phone ALFONZO VERDUGO Unavailable PROBLEMS Type Condition ICD9-CM Code [id number] Code Onset Dates Condition Status SNOMED Code Problem Mood disorder F39 Active 18644171 Problem Uterine bleeding, dysfunctional N93.8 Active 63139069 Problem Lumbago with sciatica, left side M54.42 Active 224408182 Problem Major depressive disorder, recurrent episode, moderate F33.1 Active 514659457 Problem Post traumatic stress disorder (PTSD) F43.10 Active 93427270 Problem Pain at surgical incision R20.8 Active 82878625 Problem Allergic rhinitis, unspecified allergic rhinitis trigger, unspecified rhinitis seasonality J30.9 Active 35555426 ALLERGIES No Information SOCIAL HISTORY Never Assessed PLAN OF CARE Activity Details Follow Up Next available Reason:BH F/U VITAL SIGNS MEDICATIONS Unknown Medications RESULTS No Results PROCEDURES Procedure Date Ordered Result Body Site Psychotherapy, patient &/family, 45 minutes, established patient Aug 14, 2016 IMMUNIZATIONS No Known Immunizations MEDICAL (GENERAL) HISTORY Type Description Date Medical History renal stones Surgical History eye surgies multiple Surgical History Right hip scope 05/2008 Surgical History C- sec 2013 Surgical History repeat C-Sec 2015 Surgical History lithotripsy- done in [place] Hospitalization History surgeries Hospitalization History childbirth
--- OUTSIDE RECORDS SUMMARY | 2017-08-15 20:38 | XMS REPORT ---
Author Author ALFONZO VERDUGO Organization [facility] Address [address] [place] [address] Care Team Providers Care Paving Machine Operator Name Role Phone ALFONZO VERDUGO Unavailable PROBLEMS Type Condition ICD9-CM Code [id number] Code Onset Dates Condition Status SNOMED Code Problem Mood disorder F39 Active 99954714 Problem Uterine bleeding, dysfunctional N93.8 Active 00316548 Problem Lumbago with sciatica, left side M54.42 Active 320747246 Problem Major depressive disorder, recurrent episode, moderate F33.1 Active 389280752 Problem Post traumatic stress disorder (PTSD) F43.10 Active 28336929 Problem Pain at surgical incision R20.8 Active 32605194 Problem Allergic rhinitis, unspecified allergic rhinitis trigger, unspecified rhinitis seasonality J30.9 Active 94327411 ALLERGIES Substance Reaction Event Type Date Status Penicillin V Potassium Unknown Drug Allergy Jun, Active SOCIAL HISTORY No smoking Hx information available PLAN OF CARE Activity Details Follow Up 2 Weeks Reason:BH F/U VITAL SIGNS MEDICATIONS Unknown Medications RESULTS No Results PROCEDURES Procedure Date Ordered Related Diagnosis Body Site Psychotherapy, patient &/family, 45 minutes, established patient Jul 02, 2016 IMMUNIZATIONS No Known Immunizations
--- OUTSIDE RECORDS SUMMARY | 2017-08-15 20:38 | XMS REPORT ---
Author Author ALFONZO VERDUGO [facility] Address [address] [place] [address] Care Team Providers Care Plush Brusher Name Role Phone ALFONZO VERDUGO Unavailable PROBLEMS Type Condition ICD9-CM Code [id number] Code Onset Dates Condition Status SNOMED Code Problem Mood disorder F39 Active 20614190 Problem Uterine bleeding, dysfunctional N93.8 Active 46870976 Problem Lumbago with sciatica, left side M54.42 Active 243823646 Problem Major depressive disorder, recurrent episode, moderate F33.1 Active 449218824 Problem Post traumatic stress disorder (PTSD) F43.10 Active 56311006 Problem Pain at surgical incision R20.8 Active 15992448 Problem Allergic rhinitis, unspecified allergic rhinitis trigger, unspecified rhinitis seasonality J30.9 Active 04426016 ALLERGIES Unknown Allergies SOCIAL HISTORY No smoking Hx information available PLAN OF CARE Activity Details Follow Up 2 Weeks Reason:BH F/U VITAL SIGNS MEDICATIONS Unknown Medications RESULTS No Results PROCEDURES Procedure Date Ordered Related Diagnosis Body Site Psychotherapy, patient &/family, 30 minutes, established patient Jul 15, 2016 IMMUNIZATIONS No Known Immunizations
--- OUTSIDE RECORDS SUMMARY | 2017-08-15 20:38 | XMS REPORT ---
Author Author ETHAN RIOS [facility] Address Unknown Care Team Providers Care Child Care Cook Name Role Phone ETHAN RIOS Unavailable PROBLEMS Type Condition ICD9-CM Code ZWB13-[id number] Code Onset Dates Condition Status SNOMED Code Problem Mood disorder F39 Active 46473380 Problem Uterine bleeding, dysfunctional N93.8 Active 87085638 Problem Lumbago with sciatica, left side M54.42 Active 848740160 Problem Major depressive disorder, recurrent episode, moderate F33.1 Active 281558971 Problem Post traumatic stress disorder (PTSD) F43.10 Active 81311290 Problem Pain at surgical incision R20.8 Active 01348932 Problem Allergic rhinitis, unspecified allergic rhinitis trigger, unspecified rhinitis seasonality J30.9 Active 80483723 ALLERGIES Substance Reaction Event Type Date Status Penicillin V Potassium Unknown Drug Allergy Jun, Active SOCIAL HISTORY No smoking Hx information available PLAN OF CARE Activity Details Follow Up 2-3 Week Reason:TE VITAL SIGNS Height 67 in 2016-07-15 Blood pressure systolic 92 mmHg 2016-07-15 Blood pressure diastolic 71 mmHg 2016-07-15 MEDICATIONS Medication Instructions Dosage Frequency Start Date End Date Duration Status Vitamins 0.8 MG Orally Once a day 1 tablet 24h Active Ortho Micronor 0.35 MG Orally Once a day 1 tablet 24h Jun, Active RESULTS No Results PROCEDURES Procedure Date Ordered Related Diagnosis Body Site LTD ORAL EVALUATION - PROBLEM FOCUS Jul 15, 2016 INTRAORL-PERIAPICAL 1 FILM [id number] Jul 15, 2016 IMMUNIZATIONS No Known Immunizations
--- OUTSIDE RECORDS SUMMARY | 2017-08-15 20:38 | XMS REPORT ---
Author Author CLIVE RENEE [facility] Address [address] [place] [address] Care Team Providers Care Jet Engine Mechanic Name Role Phone CLIVE RENEE Unavailable PROBLEMS Type Condition ICD9-CM Code SCE13-XM Code Onset Dates Condition Status SNOMED Code Problem Mood disorder F39 Active 93943951 Problem Uterine bleeding, dysfunctional N93.8 Active 02998519 Problem Lumbago with sciatica, left side M54.42 Active 204060877 Problem Major depressive disorder, recurrent episode, moderate F33.1 Active 503315912 Problem Post traumatic stress disorder (PTSD) F43.10 Active 48066218 Problem Pain at surgical incision R20.8 Active 94718174 Problem Allergic rhinitis, unspecified allergic rhinitis trigger, unspecified rhinitis seasonality J30.9 Active 34077600 ALLERGIES Substance Reaction Event Type Date Status Penicillin V Potassium Unknown Drug Allergy Jul, Active SOCIAL HISTORY Never Assessed PLAN OF CARE Activity Details Follow Up prn Reason: VITAL SIGNS Height 67 in 2016-08-18 Weight 195.9 lbs 2016-08-18 Temperature 99.1 degrees Fahrenheit 2016-08-18 Heart Rate 76 bpm 2016-08-18 Respiratory Rate 20 2016-08-18 BMI 30.68 kg/m2 2016-08-18 Blood pressure systolic 106 mmHg 2016-08-18 Blood pressure diastolic 73 mmHg 2016-08-18 MEDICATIONS Medication Instructions Dosage Frequency Start Date End Date Duration Status Peridex 0.12 % Mouth/Throat 3 times a day rinse mouth wiith 5ml for 5min and spit 8h Jul, Aug, 10 days Active Vitamins 0.8 MG Orally Once a day 1 tablet 24h Active Ortho Micronor 0.35 MG Orally Once a day 1 tablet 24h Jun, Active RESULTS No Results PROCEDURES No Known procedures IMMUNIZATIONS No Known Immunizations MEDICAL (GENERAL) HISTORY Type Description Date Medical History renal stones Surgical History eye surgies multiple Surgical History Right hip scope 05/2008 Surgical History C- sec 2014 Surgical History repeat C-Sec 2016 Surgical History lithotripsy- done in [place] Hospitalization History surgeries Hospitalization History childbirth
--- OUTSIDE RECORDS SUMMARY | 2017-08-15 20:38 | XMS REPORT ---
Author Author ALFONZO VERDUGO Organization [facility] Address [address] [place] [address] Care Team Providers Care Planning Consultant Name Role Phone ALFONZO VERDUGO Unavailable PROBLEMS Type Condition ICD9-CM Code ASO45-EY Code Onset Dates Condition Status SNOMED Code Problem Mood disorder F39 Active 65901302 Problem Uterine bleeding, dysfunctional N93.8 Active 67959690 Problem Lumbago with sciatica, left side M54.42 Active 999487005 Problem Major depressive disorder, recurrent episode, moderate F33.1 Active 462087702 Problem Post traumatic stress disorder (PTSD) F43.10 Active 08129700 Problem Pain at surgical incision R20.8 Active 48371281 Problem Allergic rhinitis, unspecified allergic rhinitis trigger, unspecified rhinitis seasonality J30.9 Active 25132379 ALLERGIES No Information SOCIAL HISTORY Never Assessed PLAN OF CARE Activity Details Follow Up 2 Weeks Reason:BH F/U VITAL SIGNS MEDICATIONS Unknown Medications RESULTS No Results PROCEDURES Procedure Date Ordered Result Body Site Psychotherapy, patient &/family, 45 minutes, established patient Jul 31, 2016 IMMUNIZATIONS No Known Immunizations MEDICAL (GENERAL) HISTORY Type Description Date Medical History renal stones Surgical History eye surgies multiple Surgical History Right hip scope 05/2008 Surgical History C- sec 2013 Surgical History repeat C-Sec 2015 Surgical History lithotripsy- done in [place] Hospitalization History surgeries Hospitalization History childbirth
--- OUTSIDE RECORDS SUMMARY | 2017-08-15 20:38 | XMS REPORT ---
Author Author ALBINO CARLOS Organization [facility] Address [address] [place] [address] Care Team Providers Care Bend Sorter Name Role Phone TERRANCE ALBINO Unavailable PROBLEMS Type Condition ICD9-CM Code [id number] Code Onset Dates Condition Status SNOMED Code Problem Mood disorder F39 Active 91922470 Problem Uterine bleeding, dysfunctional N93.8 Active 71368105 Problem Lumbago with sciatica, left side M54.42 Active 422658153 Problem Major depressive disorder, recurrent episode, moderate F33.1 Active 347564565 Problem Post traumatic stress disorder (PTSD) F43.10 Active 18799241 Problem Pain at surgical incision R20.8 Active 08626856 Problem Allergic rhinitis, unspecified allergic rhinitis trigger, unspecified rhinitis seasonality J30.9 Active 39947786 ALLERGIES No Information SOCIAL HISTORY Never Assessed PLAN OF CARE VITAL SIGNS MEDICATIONS Medication Instructions Dosage Frequency Start Date End Date Duration Status Breast Pump electric Double as directed .... Aug, Active RESULTS No Results PROCEDURES No Known procedures IMMUNIZATIONS No Known Immunizations MEDICAL (GENERAL) HISTORY Type Description Date Medical History renal stones Surgical History eye surgies multiple Surgical History Right hip scope 05/2008 Surgical History C- sec 2013 Surgical History repeat C-Sec 2015 Surgical History lithotripsy- done in [place] Hospitalization History surgeries Hospitalization History childbirth
[2017-08-15] MEDS ORDERED: TROPICAMIDE 1% OPH SOLN (MYDRIACYL) 3 ML BTL OU ONE (22:15)
[2017-08-15 22:24] LABS: BASOPHILS % (AUTO) 0 % (0-10); EOSINOPHILS # (AUTO) 0.1 10^3/uL (0.0-0.3); EOSINOPHILS % (AUTO) 2 % (0-10); HEMATOCRIT 37 % (35-52); HEMOGLOBIN 12.4 G/DL (11.5-16.0); LYMPHOCYTES # (AUTO) 2.2 X 10^3 (1.0-4.0); LYMPHOCYTES % (AUTO) 33 % (12-44); MEAN CORPUSCULAR HEMOGLOBIN 26 PG (25-34); MEAN CORPUSCULAR HGB CONC 33 G/DL (32-36); MEAN CORPUSCULAR VOLUME 80 FL (80-99); MEAN PLATELET VOLUME 11.6 FL (7.4-10.4); MONOCYTES # (AUTO) 0.4 X 10^3 (0.0-1.0); MONOCYTES % (AUTO) 7 % (0-12); NEUTROPHILS # (AUTO) 3.9 X 10^3 (1.8-7.8); NEUTROPHILS % (AUTO) 58 % (42-75); PLATELET COUNT 217 10^3/uL (130-400); RED CELL DISTRIBUTION WIDTH 14.9 % (10.0-14.5); WHITE BLOOD COUNT 6.8 10^3/uL (4.3-11.0)
--- NOTE | 2017-08-15 22:25 | ED Neurological Problem ---
General Chief Complaint: Eye Problems Stated Complaint: L EYE PAIN,CANT SEE OUT OF IT Nursing Triage Note: PT REPORTS THAT AT 1730 SHE BEGAN HAVING PAIN BEHIND HER LEFT EYE AND NOW SHE IS UNABLE TO SEE OUT OF AFFECTED EYE. Nursing Sepsis Screen: No Definite Risk Source: patient Exam Limitations: no limitations History of Present Illness Date Seen by Provider: Aug 15, 2017 Time Seen by Provider: 21:57 Initial Comments This 27-year-old young woman presents to the emergency room with complaints of sudden loss of vision in the left eye. Symptoms began with an aching headache behind the left eye at about 17:30. She reports abruptly losing vision in the left eye at 19:35. She denies any other neurologic deficits. Patient notes she has had multiple surgeries on this eye as a young child. She also reports having increased migraine activity recently including migraines that are not responding well to treatment. Stroke activation was paged. NIH stroke score was 2. Allergies and Home Medications Allergies Coded Allergies: Penicillins (Unverified Allergy, Unknown, 05/27/17) aripiprazole (Unverified Allergy, Unknown, 05/27/17) Home Medications Ondansetron 8 Mg Tab.rapdis, 8 MG PO Q8H Prescribed by: LITZY LOCKHART on 05/27/17 4132 Pnv Cmb#21/Iron/Folic Acid 1 Each Tablet, 1 EACH PO DAILY, (Reported) Constitutional: no symptoms reported Eyes: See HPI Ears, Nose, Mouth, Throat: no symptoms reported Respiratory: no symptoms reported Cardiovascular: no symptoms reported Gastrointestinal: no symptoms reported Genitourinary: no symptoms reported Musculoskeletal: no symptoms reported Skin: no symptoms reported Psychiatric/Neurological: See HPI Endocrine: No Symptoms Reported Past Fafcohl-Taidpk-Eykgoq Hx Patient Social History Alcohol Use: Rarely Uses Alcohol Beverage of Choice: Wine Recreational Drug Use: No Smoking Status: Current Everyday Smoker Type Used: Electronic/Vapor Former Smoker, Quit: Jun 22, 2011 2nd Hand Smoke Exposure: Yes Recent Foreign Travel: No Contact w/Someone Who Travel: No Recent Infectious Disease Expo: No Recent Hopitalizations: No Immunizations Up To Date Date of Influenza Vaccine: Mar 22, 2017 Seasonal Allergies Seasonal Allergies: No Surgeries History of Surgeries: Yes (eye surgery) Surgeries: Section, Eye Surgery Respiratory History of Respiratory Disorde: Yes Respiratory Disorders: Asthma Cardiovascular History of Cardiac Disorders: No Neurological History of Neurological Disord: Yes Neurological Disorders: Headaches /Migraines Reproductive System Female Reproductive Disorders: Polycystic Ovarian Dis Genitourinary History of Genitourinary Disor: No Gastrointestinal History of Gastrointestinal Di: No Musculoskeletal History of Musculoskeletal Dis: No Endocrine History of Endocrine Disorders: No HEENT History of HEENT Disorders: No Cancer History of Cancer: No Psychosocial History of Psychiatric Problem: No Integumentary History of Skin or Integumenta: Yes Blood Transfusions History of Blood Disorders: No Physical Exam Vital Signs Vital Signs - First Documented 08/15/17 20:45 Temp 97.5 Pulse 84 Resp 16 B/P (MAP) 106/78 (87) Pulse Ox 98 O2 Delivery Room Air Capillary Refill : Less Than 3 Seconds General Appearance: WD/WN, no apparent distress HEENT: PERRL/EOMI, normal ENT inspection, pharynx normal Neck: normal inspection Respiratory: lungs clear, normal breath sounds, no respiratory distress, no accessory muscle use Cardiovascular: regular rate, rhythm, no edema, no murmur Gastrointestinal: normal bowel sounds, non tender, soft Extremities: non-tender, normal inspection Neurologic/Psychiatric: no motor/sensory deficits, alert, normal mood/affect, oriented x 3, abnormal scrap breaker II-XII (Loss of vision in the left eye) Crainal Nerves: normal hearing, normal speech, PERRL Coordination/Gait: normal finger to nose, normal gait Motor/Sensory: no motor deficit, no sensory deficit Skin: normal color, warm/dry Stroke NIH Stroke Scale Assessment Select: Initial Level of Consciousness: 0=Alert (0), Level of Consciousness- Questions: 0=Answers both month/age (0), LOC Commands: 0=Performs both tasks (0) , Gaze: Normal (0), Visual Correa: 2=Complete hemianopia (2), Facial Movement ( Facial Paresis): 0=Normal symmetrical mnt (0), Motor Function-Arms Right: 0=No drift (0), Motor Function-Arms Left: 0=No drift (0), Motor Function-Legs Right: 0=No drift (0), Motor Function-Legs Left: 0=No drift (0), Limb Ataxia: 0=Absent (0), Sensory: 0=Normal:no loss (0), Best Language: 0=No aphasia (0), Dysarthria : 0=Normal (0), Extinction & Inattention: 0=No abnormality (0), Total: 2 Progress/Results/Core Measures Results/Orders Lab Results Laboratory Tests Test 08/15/17 22:13 08/15/17 22:35 Range/Units White Blood Count 6.8 4.3-11.0 10^3/uL Red Blood Count 4.70 4.35-5.85 10^6/uL Hemoglobin 12.4 11.5-16.0 G/DL Hematocrit 37 35-52 % Mean Corpuscular Volume 80 80-99 FL Mean Corpuscular Hemoglobin 26 25-34 PG Mean Corpuscular Hemoglobin Concent 33 32-36 G/DL Red Cell Distribution Width 14.9 H 10.0-14.5 % Platelet Count 217 130-400 10^3/uL Mean Platelet Volume 11.6 H 7.4-10.4 FL Neutrophils (%) (Auto) 58 42-75 % Lymphocytes (%) (Auto) 33 12-44 % Monocytes (%) (Auto) 7 0-12 % Eosinophils (%) (Auto) 2 0-10 % Basophils (%) (Auto) 0 0-10 % Neutrophils # (Auto) 3.9 1.8-7.8 X 10^3 Lymphocytes # (Auto) 2.2 1.0-4.0 X 10^3 Monocytes # (Auto) 0.4 0.0-1.0 X 10^3 Eosinophils # (Auto) 0.1 0.0-0.3 10^3/uL Basophils # (Auto) 0.0 0.0-0.1 10^3/uL Prothrombin Time 14.0 12.2-14.7 SEC INR Comment 1.1 0.8-1.4 Activated Partial Thromboplast Time 30 24-35 SEC D-Dimer 0.29 0.00-0.49 UG/ML Sodium Level 137 135-145 MMOL/L Potassium Level 3.9 3.6-5.0 MMOL/L Chloride Level 105 98-107 MMOL/L Carbon Dioxide Level 23 21-32 MMOL/L Anion Gap 9 5-14 MMOL/L Blood Urea Nitrogen 7 7-18 MG/DL Creatinine 0.68 0.60-1.30 MG/DL Estimat Glomerular Filtration Rate > 60 BUN/Creatinine Ratio 10 Glucose Level 88 70-105 MG/DL Calcium Level 9.2 8.5-10.1 MG/DL Total Bilirubin 0.3 0.1-1.0 MG/DL Aspartate Amino Transf (AST/SGOT) 12 5-34 U/L Alanine Aminotransferase (ALT/SGPT) 11 0-55 U/L Alkaline Phosphatase 82 40-136 U/L Troponin I < 0.30 <0.30 NG/ML Total Protein 7.0 6.4-8.2 GM/DL Albumin 4.1 3.2-4.5 GM/DL Serum Test, Qualitative NEGATIVE NEGATIVE Urine Color YELLOW Urine Clarity CLEAR Urine pH 5 5-9 Urine Specific Guion 1.020 1.016-1.022 Urine Protein 1+ H NEGATIVE Urine Glucose (UA) NEGATIVE NEGATIVE Urine Ketones NEGATIVE NEGATIVE Urine Nitrite POSITIVE H NEGATIVE Urine Bilirubin NEGATIVE NEGATIVE Urine Urobilinogen NORMAL NORMAL MG/DL Urine Leukocyte Esterase 2+ H NEGATIVE Urine RBC (Auto) 4+ H NEGATIVE Urine RBC 5-10 H /HPF Urine WBC 25-50 H /HPF Urine Squamous Epithelial Cells 2-5 /HPF Urine Crystals NONE /LPF Urine Bacteria LARGE H /HPF Urine Casts NONE /LPF Urine Mucus NEGATIVE /LPF Urine Culture Indicated YES My Orders Orders - DINORA EGAN MD Cbc With Automated Diff (08/15/17 22:04) Protime With Inr (08/15/17 22:04) Partial Thromboplastin Time (08/15/17 22:04) Comprehensive Metabolic Panel (08/15/17 22:04) Fibrin Degradation Products (08/15/17 22:04) Troponin I (08/15/17 22:04) Ua Culture If Indicated (08/15/17 22:04) Chest 1 View, Ap/Pa Only (08/15/17 22:04) Ekg Tracing (08/15/17 22:04) Accucheck Stat ONCE (08/15/17 22:04) Saline Lock/Iv-Start (08/15/17 22:04) Saline Lock/Iv-Start (08/15/17 22:04) Vital Signs - Stroke Q15M (08/15/17 22:04) Ct Head Wo-R/O Stroke (08/15/17 22:04) O2 (08/15/17 22:04) Intake & Output 06,14,22 (08/15/17 22:04) Monitor-Rhythm Ecg Trace Only (08/15/17 22:04) Dysphagia Screening Tool (08/15/17 22:04) Hcg,Qualitative Serum (08/15/17 22:04) Tropicamide 1% Ophthalmic Soln (Mydriacy (08/15/17 22:15) Tetracaine 0.5% Ophth Tita Sdv (Tetracai (08/15/17 22:30) Urine Culture (08/15/17 22:35) Ketorolac Injection (Toradol Injection) (08/15/17 23:30) Ct Angio Head/Neck (08/16/17 00:03) Iohexol Injection (Omnipaque 350 Mg/Ml 1 (08/16/17 01:00) Ns (Ivpb) (Sodium Chloride 0.9%) (08/16/17 01:00) Medications Given in ED Current Medications Medications Dose Ordered Sig/Denia Route Start Time Stop Time Status Last Admin Dose Admin Iohexol 75 ml ONCE ONCE IV 08/16/17 01:00 08/16/17 01:55 DC 08/16/17 00:49 75 ML Ketorolac Tromethamine 30 mg ONCE ONCE IM 08/15/17 23:30 08/15/17 23:31 DC 08/15/17 23:34 30 MG Sodium Chloride 80 ml ONCE ONCE IV 08/16/17 01:00 08/16/17 01:55 DC 08/16/17 00:49 80 ML Tetracaine HCl 4 ml ONCE ONCE OU 08/15/17 22:30 08/15/17 22:31 DC 08/15/17 22:40 4 ML Vital Signs/I&O Vital Sign - Last 12Hours 08/15/17 08/16/17 20:45 01:45 Temp 97.5 97.5 Pulse 84 65 Resp 16 16 B/P (MAP) 106/78 (87) 101/71 (87) Pulse Ox 98 98 O2 Delivery Room Air Blood Pressure Mean: 87 Progress Note #1: Time: 22:30 Progress Note Case reviewed with Dr. Madrigal. He will present as soon as possible to evaluate the patient with dilated eye exam. Stroke activation had been paged out ET is in progress. Progress Note #2: Time: 22:55 Progress Note Case reviewed with Dr. Church who agrees that this is not likely a central nervous system lesion. Patient has complete loss of vision or monocular early with no reported deficits in the right eye. Therefore, this seems to be a peripheral pathology. She advised against TPA and would like to be updated with the air cargo ground crew supervisor impression. Pressures were checked with the Jun-Pen and found to be 13. Tetracaine drops were used prior to measuring pressures. Progress Note #3: Time: 23:[address] Madrigal is present with patient in the exam room. Progress Note #4: Progress Note Dr. Madrigal's exam was unremarkable. He believes symptoms are likely due to atypical migraine and/or malingering. Patient's pain resolved with a Toradol injection. Vision deficit remained. Patient is to follow-up with Dr. Madrigal on Thursday. Diagnostic Imaging Diagonstic Imaging: CT Plain Films/CT/US/NM/MRI: head Comments CT head viewed by me and [employer] report reviewed. No acute abnormalities were appreciated. Diagonstic Imaging: Xray Plain Films/CT/US/NM/MRI: chest Comments Chest x-ray viewed by me. Report not yet available. No acute abnormalities appreciated. Diagonstic Imaging: CT Plain Films/CT/US/NM/MRI: head Comments CT angiogram of the head and neck viewed by me. Stat rad report reviewed. No acute abnormalities appreciated. Departure Impression Impression: Primary Impression: Atypical migraine Additional Impression: Vision loss, left eye Disposition: 01 HOME, SELF-CARE Condition: Improved Departure-Patient Inst. Decision time for Depature: 01:37 [place]: [facility] [place] Primary Care Physician FELIPE MADRIGAL OD Patient Instructions: Migraine Headache (DC) Add. Discharge Instructions: For recurrent migraine you may take ibuprofen up to 600 mg every 6 hours as needed for pain. Follow-up with Dr. Madrigal on Thursday as he recommended. Also follow-up with your primary care provider early this week. Return to care if symptoms worsen. All discharge instructions reviewed with patient and/or family. Voiced understanding. Work/School Note: Work Release Form Date Seen in the Emergency Department: Aug 15, 2017 Return to Work: Aug 18, 2017 Restrictions: No Restrictions Copy Copies To 1: FELIPE MADRIGAL OD Copies To 2: BECKI BRENNER JOSHUA T MD Aug 15, 2017 22:25
[2017-08-15] MEDS ORDERED: TETRACAINE 0.5% OPHTH SOLN 4 ML BTL (SINGLE DOSE ONLY) OU ONE (22:30)
[2017-08-15 22:37] LABS: INR 1.1 (0.8-1.4)
[2017-08-15 22:40] LABS: FIBRIN DEGRADATION PRODUCTS 0.29 UG/ML (0.00-0.49)
[2017-08-15 22:45] LABS: BILIRUBIN,URINE NEGATIVE (NEGATIVE); CLARITY,URINE CLEAR; COLOR,URINE YELLOW; GLUCOSE, URINE (UA) NEGATIVE (NEGATIVE); KETONES,URINE NEGATIVE (NEGATIVE); LEUKOCYTE ESTERASE ,URINE 2+ (NEGATIVE); NITRITE,URINE POSITIVE (NEGATIVE); PH,URINE 5 (5-9); PROTEIN,URINE 1+ (NEGATIVE); UROBILINOGEN,URINE NORMAL (NORMAL)
[2017-08-15 22:47] LABS: ALANINE AMINOTRANSFERASE 11 U/L (0-55); ALBUMIN 4.1 GM/DL (3.2-4.5); ALKALINE PHOSPHATASE 82 U/L (40-136); BILIRUBIN,TOTAL 0.3 MG/DL (0.1-1.0); BUN/CREATININE RATIO 10; CALCIUM 9.2 MG/DL (8.5-10.1); CARBON DIOXIDE 23 MMOL/L (21-32); CHLORIDE 105 MMOL/L (98-107); CREATININE SERUM 0.68 MG/DL (0.60-1.30); GFR ESTIMATED > 60; GLUCOSE 88 MG/DL (70-105); POTASSIUM 3.9 MMOL/L (3.6-5.0); SODIUM 137 MMOL/L (135-145)
[2017-08-15 22:54] LABS: BACTERIA,URINE LARGE /HPF; WBC,URINE 25-50 /HPF
[2017-08-15] MEDS ORDERED: KETOROLAC 30 MG/ML VIAL IM ONE (23:30)
[2017-08-16] MEDS ORDERED: IOHEXOL 350 MG/ML 100 ML (OMNIPAQUE 350) VIAL IV ONE (01:00)
[2017-08-16] MEDS ORDERED: NS 250 ML (IVPB) BAG IV ONE (01:00)
[2017-08-16 01:45] VITALS: BP 101/71
--- NOTE | 2017-08-16 06:20 | Diagnostic Imaging Report ---
INDICATION: Left eye pain and numbness. TECHNIQUE: Multiple contiguous axial images were obtained through the brain without the use of intravenous contrast. No prior examinations are available for comparison. FINDINGS: The ventricles and sulci are within normal limits. There is no hydrocephalus or cerebral edema. There is no midline shift or mass effect. There is no intracranial mass, hemorrhage, or extra-axial fluid collection. The visualized paranasal sinuses and mastoid air cells are clear. There are no regional areas of decreased attenuation appreciated to suggest an acute CVA. IMPRESSION: No acute intracranial abnormality. Dictated by: Dictated on workstation # [id number]
--- NOTE | 2017-08-16 07:08 | Diagnostic Imaging Report ---
PROCEDURE: CT angiography of the head and CT angiography of the neck with and without contrast. TECHNIQUE: Contiguous noncontrast images were obtained from the skull base through the vertex. After intravenous contrast administration, helical CT angiography of the neck was performed. Source data was reformatted into multiple MIP projections. Delayed post contrast acquisition was also obtained. Indication: Left eye pain with vision loss. COMPARISON: Noncontrast CT head of 08/15/2017. FINDINGS: CTA NECK: Aorta:Aortic arch is normal, with standard three vessel branching pattern. Anterior Circulation: The origin of the bilateral common carotid arteries are patent. No stenosis of the common carotid arteries in the neck. No significant stenosis of the internal carotid arteries per NASCET criteria. The cervical segments of the bilateral ICAs are patent. The proximal external carotid arteries are patent and without significant stenosis. Posterior Circulation: Origins of the bilateral vertebral arteries are normal. Vertebral arteries are co-dominant. The proximal extraousseous, intrasosseous, and distal extraosseous segments of the vertebral arteries are patent without dissection or stenosis. Non-vascular: No cervical lymphadenopathy. The airway is patent. No evidence of mucosal-based mass lesion in the pharynx. Thyroid is normal. Salivary glands are normal. No concerning lesion in the cervical spine. CTA HEAD: Anterior Circulation: The distal internal carotid arteries are patent. The bilateral M1 and M2 segments of the middle cerebral arteries are patent and without stenosis. The bilateral M3 and M4 segments are symmetric in size and number. The anterior cerebral arteries are patent and without stenosis. Anterior communicating artery is patent. No saccular aneurysm in the anterior circulation. Posterior Circulation: The bilateral intracranial segments of the vertebral arteries are patent. The basilar artery is patent and without stenosis. The posterior cerebral arteries are patent. Bilateral posterior communicating arteries are patent and without aneurysm. No saccular aneurysm in the posterior circulation. Post Contrast Head: No pathologic enhancement on delayed post-contrast enhancement. IMPRESSION: 1. No intra-cranial major arterial occlusion, significant stenosis or aneurysm. 2. No arterial occlusion or stenosis in the major neck arteries. Findings are in agreement with the preliminary report. Dictated by: Dictated on workstation # [id number]
--- NOTE | 2017-08-16 07:28 | Diagnostic Imaging Report ---
INDICATION: Shortness of breath. FINDINGS: The heart size, mediastinal configuration, and pulmonary vascularity are within normal limits. There is no pleural effusion, pneumothorax, or pneumonia. The osseous structures are unremarkable. IMPRESSION: No acute cardiopulmonary abnormality. Dictated by: Dictated on workstation # [id number]
[2017-08-18] MEDS ORDERED: CIPR-225 PO (08:38)
== END 2017-08-16 01:45 | disposition home or self-care (01) ==
LOC: EDUNIT# 20:31 → ER 20:34
DX: G43.909 Migraine, unspecified, not intractable, without status migrainosus (principal); H53.132 Sudden visual loss, left eye; J45.909 Unspecified asthma, uncomplicated; F17.210 Nicotine dependence, cigarettes, uncomplicated; R29.702 NIHSS score 2; Z87.59 Personal history of other complications of pregnancy, childbirth and the puerperium; Z32.02 Encounter for pregnancy test, result negative; Z87.42 Personal history of other diseases of the female genital tract; Z88.0 Allergy status to penicillin; Z88.8 Allergy status to other drugs, medicaments and biological substances
CPT/HCPCS: 36415; 70450; 70496; 70498; 71045; 80053; 81000; 84484; 84703; 85025; 85379; 85610; 85730; 87088; 87186; 93005; 93041; 96372

== ENCOUNTER → 2017-08-25 | Outpatient (CLI) | payer SELFPAY ==
[~2017-08-25] MED LIST changes: +CIPR-225 PO; +GADOBUTROL 10 MMOL/10 ML (GADAVIST) VIAL IV ONE
--- NOTE | 2017-08-25 14:57 | Diagnostic Imaging Report ---
INDICATION: Visual disturbance with loss of vision in left eye. TECHNIQUE: Multiplanar pre and post contrast MR imaging of the brain is performed with thin-section imaging performed through the orbits. FINDINGS: Ventricles and sulci are within normal limits. Fortune and white matter signal intensities are unremarkable. There is no restricted diffusion to indicate an infarct. There is no abnormal mass effect or shift of midline structures. There is no abnormal contrast enhancement. Globes appear to be intact. There is no evidence of optic nerve abnormality. Mild mural thickening is seen within several right ethmoid air cells. Extraocular muscles have a normal appearance and there is no evidence of retro-orbital fat abnormality. Pituitary gland and suprasellar region are unremarkable without evidence of optic chiasm displacement. IMPRESSION: Unremarkable MRI of the brain and orbits. Dictated by: Dictated on workstation # [id number]
== END ==
LOC: RAD 13:11
PROVIDERS: ATTEND Nurse Practitioner Community Health
DX: H54.62 Unqualified visual loss, left eye, normal vision right eye (principal)
CPT/HCPCS: 70553

== ENCOUNTER 2017-12-22 10:36 | Emergency (ER) | payer MEDICAID, OTHER ==
[~2017-12-22] VITALS: Ht 167.6 cm; Wt 86.2 kg
[~2017-12-22 10:36] MED LIST changes: -GADOBUTROL 10 MMOL/10 ML (GADAVIST) VIAL IV ONE
[2017-12-22] MEDS ORDERED: KETOROLAC 30 MG/ML VIAL IVP ONE (11:00)
[2017-12-22] MEDS ORDERED: ONDANSETRON 4 MG/2 ML (SDV) Z0FRAN IVP ONE (11:00)
--- NOTE | 2017-12-22 11:02 | ED Abdominal Pain ---
General Stated Complaint: RIGHT SIDE PAIN Source of Information: Patient Exam Limitations: No Limitations History of Present Illness Date Seen by Provider: Dec 22, 2017 Time Seen by Provider: 11:00 Initial Comments to ER with a four-day history of right-sided abdominal pain both upper and lower but more intense in the upper abdomen. Pain is worsened by eating and she has associated nausea. No fevers or chills.no history of this. Timing/Duration: 3-4 Days Severity/Quality: Moderate Location: RUQ Radiation: No Radiation Activities at Onset: None Associated Symptoms: Nausea/Vomiting Allergies and Home Medications Allergies Coded Allergies: Penicillins (Unverified Allergy, Unknown, 05/27/17) aripiprazole (Unverified Allergy, Unknown, 05/27/17) Home Medications Ciprofloxacin HCl 500 Mg Tablet, 500 MG PO BID, (Reported) Hydrocodone/Acetaminophen 1 Each Tablet, 1 EACH PO Q4H PRN for PAIN-MODERATE TO SEVERE Prescribed by: FROILAN HENRY on 12/22/17 1317 Ondansetron 8 Mg Tab.rapdis, 8 MG PO Q8H Prescribed by: LITZY LOCKHART on 05/27/17 1752 Ondansetron 8 Mg Tab.rapdis, 8 MG PO Q6H PRN for NAUSEA/VOMITING-1ST LINE Prescribed by: FROILAN HENRY on 12/22/17 1317 Pnv Cmb#21/Iron/Folic Acid 1 Each Tablet, 1 EACH PO DAILY, (Reported) Patient Home Medication List Home Medication List Reviewed: Yes Review of Systems Constitutional: see HPI; No chills, No fever EENTM: No Symptoms Reported Respiratory: No Symptoms Reported Cardiovascular: No Symptoms Reported Gastrointestinal: See HPI, Abdominal Pain, Nausea Genitourinary: No Symptoms Reported Musculoskeletal: no symptoms reported Skin: no symptoms reported Psychiatric/Neurological: No Symptoms Reported Endocrine: No Symptoms Reported Past Celrzwo-Zggpqn-Wxfgdd Hx Patient Social History Alcohol Beverage of Choice: Wine Type Used: Electronic/Vapor Former Smoker, Quit: Jun 22, 2011 2nd Hand Smoke Exposure: Yes Recent Foreign Travel: No Contact w/Someone Who Travel: No Recent Hopitalizations: No Immunizations Up To Date Date of Influenza Vaccine: Mar 22, 2017 Seasonal Allergies Seasonal Allergies: No Past Medical History Surgeries: Yes (eye surgery) Section, Eye Surgery Respiratory: Yes Asthma Cardiac: No Neurological: Yes Headaches /Migraines Female Reproductive Disorders: Polycystic Ovarian Dis Genitourinary: No Gastrointestinal: No Musculoskeletal: No Endocrine: No HEENT: No Cancer: No Psychosocial: No Integumentary: Yes Blood Disorders: No Physical Exam Vital Signs Vital Signs - First Documented 12/22/17 10:53 Temp 97.1 Pulse 76 Resp 18 B/P (MAP) 113/75 (88) Pulse Ox 98 Capillary Refill : General Appearance: WD/WN, no apparent distress HEENT: PERRL/EOMI, normal ENT inspection Neck: non-tender, full range of motion Respiratory: no respiratory distress, no accessory muscle use Cardiovascular: regular rate, rhythm, no murmur Gastrointestinal: normal bowel sounds, soft, tenderness (right sided. Upper abdomen is more tender than the lower abdomen.) Extremities: normal range of motion, non-tender Neurologic/Psychiatric: alert, normal mood/affect, oriented x 3 Skin: normal color, warm/dry Progress/Results/Core Measures Results/Orders Lab Results Laboratory Tests Test 12/22/17 10:56 12/22/17 11:28 Range/Units Urine Color YELLOW Urine Clarity SLIGHTLY CLOUDY Urine pH 6.5 5-9 Urine Specific Home 1.020 1.016-1.022 Urine Protein 2+ H NEGATIVE Urine Glucose (UA) NEGATIVE NEGATIVE Urine Ketones NEGATIVE NEGATIVE Urine Nitrite POSITIVE H NEGATIVE Urine Bilirubin NEGATIVE NEGATIVE Urine Urobilinogen 1 NORMAL MG/DL Urine Leukocyte Esterase 1+ H NEGATIVE Urine RBC (Auto) 5+ H NEGATIVE Urine RBC TNTC H /HPF Urine WBC 0-2 /HPF Urine Squamous Epithelial Cells 5-10 /HPF Urine Crystals NONE /LPF Urine Bacteria NEGATIVE /HPF Urine Casts NONE /LPF Urine Mucus NEGATIVE /LPF Urine Culture Indicated NO White Blood Count 4.8 4.3-11.0 10^3/uL Red Blood Count 4.89 4.35-5.85 10^6/uL Hemoglobin 12.5 11.5-16.0 G/DL Hematocrit 39 35-52 % Mean Corpuscular Volume 79 L 80-99 FL Mean Corpuscular Hemoglobin 26 25-34 PG Mean Corpuscular Hemoglobin Concent 33 32-36 G/DL Red Cell Distribution Width 14.4 10.0-14.5 % Platelet Count 224 130-400 10^3/uL Mean Platelet Volume 11.7 H 7.4-10.4 FL Neutrophils (%) (Auto) 54 42-75 % Lymphocytes (%) (Auto) 35 12-44 % Monocytes (%) (Auto) 9 0-12 % Eosinophils (%) (Auto) 2 0-10 % Basophils (%) (Auto) 0 0-10 % Neutrophils # (Auto) 2.6 1.8-7.8 X 10^3 Lymphocytes # (Auto) 1.6 1.0-4.0 X 10^3 Monocytes # (Auto) 0.4 0.0-1.0 X 10^3 Eosinophils # (Auto) 0.1 0.0-0.3 10^3/uL Basophils # (Auto) 0.0 0.0-0.1 10^3/uL Sodium Level 140 135-145 MMOL/L Potassium Level 3.8 3.6-5.0 MMOL/L Chloride Level 108 H 98-107 MMOL/L Carbon Dioxide Level 22 21-32 MMOL/L Anion Gap 10 5-14 MMOL/L Blood Urea Nitrogen 7 7-18 MG/DL Creatinine 0.75 0.60-1.30 MG/DL Estimat Glomerular Filtration Rate > 60 BUN/Creatinine Ratio 9 Glucose Level 83 70-105 MG/DL Calcium Level 9.5 8.5-10.1 MG/DL Total Bilirubin 0.4 0.1-1.0 MG/DL Aspartate Amino Transf (AST/SGOT) 15 5-34 U/L Alanine Aminotransferase (ALT/SGPT) 10 0-55 U/L Alkaline Phosphatase 78 40-136 U/L Total Protein 7.1 6.4-8.2 GM/DL Albumin 4.3 3.2-4.5 GM/DL Lipase 17 8-78 U/L Serum Test, Qualitative NEGATIVE NEGATIVE My Orders Orders - FROILAN HENRY APRN Cbc With Automated Diff (12/22/17 10:40) Comprehensive Metabolic Panel (12/22/17 10:40) Ua Culture If Indicated (12/22/17 10:40) Urine Bedside (12/22/17 10:40) Iv Heplock-Insert (Order) (12/22/17 10:40) Lipase (12/22/17 10:58) Us Gallbladder [id number] (12/22/17 10:58) Ketorolac Injection (Toradol Injection) (12/22/17 11:00) Ondansetron Injection (Zofran Injectio (12/22/17 11:00) Hcg,Qualitative Serum (12/22/17 10:58) Ct Abd/Pelvis Wo(Kidney Stone) (12/22/17 11:54) Fentanyl Injection (Sublimaze Injection (12/22/17 12:15) Medications Given in ED Current Medications Medications Dose Ordered Sig/Denia Route Start Time Stop Time Status Last Admin Dose Admin Fentanyl Citrate 50 mcg ONCE ONCE IVP 12/22/17 12:15 12/22/17 12:18 DC 12/22/17 12:30 50 MCG Ketorolac Tromethamine 30 mg ONCE ONCE IVP 12/22/17 11:00 12/22/17 11:01 DC 12/22/17 11:32 30 MG Ondansetron HCl 8 mg ONCE ONCE IVP 12/22/17 11:00 12/22/17 11:01 DC 12/22/17 11:29 8 MG Vital Signs/I&O 12/22/17 12/22/17 10:53 13:35 Temp 97.1 97.1 Pulse 76 76 Resp 18 18 B/P (MAP) 113/75 (88) 113/75 (88) Pulse Ox 98 98 Diagnostic Imaging Diagonstic Imaging: CT, Ultrasound Comments NAME: DANAE TOVAR [facility] REC#: [id number] PT STATUS: REG ER : 1990 PHYSICIAN: FROILAN HENRY APRN ADMIT DATE: 12/22/17/ER Draft Date of Exam:12/22/17 CT ABD/PELVIS WO(KIDNEY STONE) PROCEDURE: CT urinary tract, rule out kidney stone. TECHNIQUE: Multiple contiguous axial images were obtained through the abdomen and pelvis without the use of intravenous contrast. INDICATION: Right flank pain, nausea, vomiting, hematuria. Study compared 06/20/2016 FINDINGS: There are right greater than left bilateral nonobstructing intrarenal stones, the greatest in the right lower pole with a measured 2 mm maximal. No perinephric or periureteric edema and no opaque ureteral calculi. No stones within the urinary bladder, lumen, no perinephric or periureteric inflammatory process, no urinoma or fluid collection. Liver, gallbladder, bile ducts, spleen, adrenals and pancreas unremarkable. Aorta is nonaneurysmal. There is no appendicitis or diverticulitis. There is trace pelvic free fluid in the cul-de-sac which is a common physiologic finding in a female patient of this age. The uterus, adnexa and unopacified urinary bladder had an unremarkable appearance. There is no appendicitis or diverticulitis. No focal inflammatory process. No pneumatosis or free gas. IMPRESSION: Nonobstructing intrarenal calculi, no opaque ureteral stone or hydronephrosis. Small pelvic free fluid believed physiologic. No obstructive phenomena, inflammatory process or acute abnormalities identified. Dictated on workstation # [id number] Dict: 12/22/17 1236 Trans: 12/22/17 1242 CV [id number] Interpreted by: LISBETH BYRNE Electronically signed by: Departure Impression Primary Impression: Right upper quadrant abdominal pain Additional Impression: Sludge in gallbladder Disposition: 01 HOME, SELF-CARE Condition: Improved Departure-Patient Inst. Decision time for Depature: 13:15 Referrals: [facility] [place] (PCP/Family) Primary Care Physician EZEQUIEL HADDAD BRETT D DO JENKINS, XAVIER M MD KIDO, TAKAAKI MD Patient Instructions: Acute Abdomen (Belly Pain), Adult (DC) Add. Discharge Instructions: 1. Eat a low-fat bland diet until you're directed otherwise. Try to avoid dairy products. Follow-up with a surgeon of your choosing. Call on to make an appointment to be seen. Nausea and pain medication as needed in the meantime , return to ER for any fevers, intolerable pain or other concerns. Scripts Hydrocodone/Acetaminophen ([place] 5-325 Tablet) 1 Each Tablet 1 EACH PO Q4H PRN for PAIN-MODERATE TO SEVERE, #14 TAB Prov: FROILAN HENRY ABA THERAPIST 12/22/17 Ondansetron (Zofran Odt) 8 Mg Tab.rapdis 8 MG PO Q6H PRN for NAUSEA/VOMITING-1ST LINE, #10 TAB Prov: FROILAN HENRY APRN 12/22/17 FROILAN HENRY APRN Dec 22, 2017 11:02
[2017-12-22 11:10] LABS: BILIRUBIN,URINE NEGATIVE (NEGATIVE); CLARITY,URINE SLIGHTLY CLOUDY; COLOR,URINE YELLOW; GLUCOSE, URINE (UA) NEGATIVE (NEGATIVE); KETONES,URINE NEGATIVE (NEGATIVE); LEUKOCYTE ESTERASE ,URINE 1+ (NEGATIVE); NITRITE,URINE POSITIVE (NEGATIVE); PH,URINE 6.5 (5-9); PROTEIN,URINE 2+ (NEGATIVE); UROBILINOGEN,URINE 1 MG/DL (NORMAL)
[2017-12-22 11:21] LABS: BACTERIA,URINE NEGATIVE /HPF; RBC,URINE TNTC /HPF; WBC,URINE 0-2 /HPF
[2017-12-22 11:42] LABS: BASOPHILS % (AUTO) 0 % (0-10); EOSINOPHILS # (AUTO) 0.1 10^3/uL (0.0-0.3); EOSINOPHILS % (AUTO) 2 % (0-10); HEMATOCRIT 39 % (35-52); HEMOGLOBIN 12.5 G/DL (11.5-16.0); LYMPHOCYTES # (AUTO) 1.6 X 10^3 (1.0-4.0); LYMPHOCYTES % (AUTO) 35 % (12-44); MEAN CORPUSCULAR HEMOGLOBIN 26 PG (25-34); MEAN CORPUSCULAR HGB CONC 33 G/DL (32-36); MEAN CORPUSCULAR VOLUME 79 FL (80-99); MEAN PLATELET VOLUME 11.7 FL (7.4-10.4); MONOCYTES # (AUTO) 0.4 X 10^3 (0.0-1.0); MONOCYTES % (AUTO) 9 % (0-12); NEUTROPHILS # (AUTO) 2.6 X 10^3 (1.8-7.8); NEUTROPHILS % (AUTO) 54 % (42-75); PLATELET COUNT 224 10^3/uL (130-400); RED BLOOD COUNT 4.89 10^6/uL (4.35-5.85); RED CELL DISTRIBUTION WIDTH 14.4 % (10.0-14.5); WHITE BLOOD COUNT 4.8 10^3/uL (4.3-11.0)
[2017-12-22 12:06] LABS: ALANINE AMINOTRANSFERASE 10 U/L (0-55); ALBUMIN 4.3 GM/DL (3.2-4.5); ALKALINE PHOSPHATASE 78 U/L (40-136); BILIRUBIN,TOTAL 0.4 MG/DL (0.1-1.0); BUN/CREATININE RATIO 9; CALCIUM 9.5 MG/DL (8.5-10.1); CARBON DIOXIDE 22 MMOL/L (21-32); CHLORIDE 108 MMOL/L (98-107); CREATININE SERUM 0.75 MG/DL (0.60-1.30); GFR ESTIMATED > 60; GLUCOSE 83 MG/DL (70-105); LIPASE 17 U/L (8-78); POTASSIUM 3.8 MMOL/L (3.6-5.0); SODIUM 140 MMOL/L (135-145); TOTAL PROTEIN 7.1 GM/DL (6.4-8.2)
[2017-12-22] MEDS ORDERED: fentaNYL INJECTION 100 MCG/2 ML AMP IVP ONE (12:15)
--- NOTE | 2017-12-22 12:38 | Diagnostic Imaging Report ---
PROCEDURE: US Gallbladder. TECHNIQUE: Multiple real-time grayscale images were obtained over the right upper quadrant in various projections. INDICATION: Right upper quadrant pain. FINDINGS: Non-shadowing moderately echogenic foci adherent to the gallbladder wall measured maximal 5 mm and are probably small cholesterol polyps less likely small sludge balls adherent to the wall. No echogenic or shadowing stone. The gallbladder is nondilated and its wall non-thickened. No pericholecystic fluid. The Meza's sign negative. There is no dilatation of intra-or extra hepatic bile ducts. The right kidney normal in size, cortical thickness and echotexture. The visualized portions of the pancreas unremarkable and its tail, however, obscured by gas. There is no ascites or fluid collection. The portal venous flow is in the normal hepatopetal direction. IMPRESSION: Probable small polyps adherent to the gallbladder wall versus non-mobile sludge balls. No echogenic or shadowing stone. No gallbladder distention, mural edema or tenderness to transducer pressure. No biliary dilatation. Negative right kidney. No ascites. No fluid collection. Dictated by: Dictated on workstation # [id number]
--- NOTE | 2017-12-22 12:43 | Diagnostic Imaging Report ---
PROCEDURE: CT urinary tract, rule out kidney stone. TECHNIQUE: Multiple contiguous axial images were obtained through the abdomen and pelvis without the use of intravenous contrast. INDICATION: Right flank pain, nausea, vomiting, hematuria. Study compared 06/20/2016 FINDINGS: There are right greater than left bilateral nonobstructing intrarenal stones, the greatest in the right lower pole with a measured 2 mm maximal. No perinephric or periureteric edema and no opaque ureteral calculi. No stones within the urinary bladder, lumen, no perinephric or periureteric inflammatory process, no urinoma or fluid collection. Liver, gallbladder, bile ducts, spleen, adrenals and pancreas unremarkable. Aorta is nonaneurysmal. There is no appendicitis or diverticulitis. There is trace pelvic free fluid in the cul-de-sac which is a common physiologic finding in a female patient of this age. The uterus, adnexa and unopacified urinary bladder had an unremarkable appearance. There is no appendicitis or diverticulitis. No focal inflammatory process. No pneumatosis or free gas. IMPRESSION: Nonobstructing intrarenal calculi, no opaque ureteral stone or hydronephrosis. Small pelvic free fluid believed physiologic. No obstructive phenomena, inflammatory process or acute abnormalities identified. Dictated by: Dictated on workstation # [id number]
[2017-12-22] MEDS ORDERED: ONDA8TAB9 PO (13:17)
[2017-12-22] MEDS ORDERED: HYDR-757 PO (13:17)
[2017-12-22 13:35] VITALS: BP 113/75
== END 2017-12-22 13:35 | disposition home or self-care (01) ==
LOC: EDUNIT# 10:36 → ER 10:38
DX: K82.8 Other specified diseases of gallbladder (principal); J45.909 Unspecified asthma, uncomplicated; G43.909 Migraine, unspecified, not intractable, without status migrainosus; Z87.448 Personal history of other diseases of urinary system; Z88.0 Allergy status to penicillin; Z88.8 Allergy status to other drugs, medicaments and biological substances; Z87.891 Personal history of nicotine dependence; Z87.59 Personal history of other complications of pregnancy, childbirth and the puerperium
CPT/HCPCS: 36415; 74176; 76705; 80053; 81000; 83690; 84703; 85025; 96374; 96375

== ENCOUNTER 2017-12-30 06:18 | Outpatient (CLI) | payer MEDICAID ==
[~2017-12-30] VITALS: Ht 167.6 cm; Wt 86.2 kg
[~2017-12-30 06:18] MED LIST changes: +HYDR-757 PO
[2017-12-30] MEDS ORDERED: MULT-1067 PO (12:46)
== END 2017-12-30 12:57 | disposition home or self-care (01) ==
LOC: PREOP 06:18
PROVIDERS: ATTEND Surgery
DX: Z01.818 Encounter for other preprocedural examination (principal)

== ENCOUNTER 2017-12-31 10:35 | Day surgery (SDC) | payer MEDICAID ==
[~2017-12-31] VITALS: Ht 167.6 cm; Wt 86.2 kg
[~2017-12-31 10:35] MED LIST changes: +MULT-1067 PO
[2017-12-31] MEDS ORDERED: CLINDAMYCIN 600 MG/50 ML IVPB 50 ML IV ONE (11:15)
[2017-12-31] MEDS ORDERED: SCOPOLAMINE 1.5 MG (TRANSDERM-SCOP) PATCH TOP ONE ×2 (11:15→11:45)
[2017-12-31] MEDS ORDERED: ONDANSETRON 4 MG/2 ML (SDV) Z0FRAN IV ONE (11:15)
[2017-12-31] MEDS ORDERED: FAMOTIDINE 20MG/2ML IV (PEPCID) IV ONE (11:15)
[2017-12-31 11:19] VITALS: BP 102/69
[2017-12-31] MEDS ORDERED: LACTATED RINGERS 0 ML IV ONE (12:11)
[2017-12-31] MEDS ORDERED: LIDOCAINE PF 2% 5 ML (XYLOCAINE) VIAL ONE (12:11)
[2017-12-31] MEDS ORDERED: ROCURONIUM 10 MG/ML 5 ML SYRINGE IV ONE (12:11)
[2017-12-31] MEDS ORDERED: proPOfol 200 MG/20 ML (DIPRIVAN) VIAL IV ONE (12:11)
[2017-12-31] MEDS ORDERED: ONDANSETRON 4 MG/2 ML (SDV) Z0FRAN ONE (12:11)
[2017-12-31] MEDS ORDERED: fentaNYL INJECTION 100 MCG/2 ML AMP ONE ×2 (12:12→14:03)
[2017-12-31] MEDS ORDERED: MIDAZOLAM 2 MG/2 ML (VERSED) VIAL ONE (12:13)
[2017-12-31] MEDS ORDERED: LIDOCAINE/EPI 1%-1:200,000 (XYLOCAINE) 10 ML VIAL ONE (12:22)
[2017-12-31] MEDS: LACTATED RINGERS 1,000 ML IV PRN ×2 (12:31→13:30)
--- NOTE | 2017-12-31 12:33 | Progress Note-Pre Operative ---
Pre-Operative Progress Note H&P Reviewed The H&P was reviewed, patient examined and no changes noted. Time Seen by Provider: 12:30 Date H&P Reviewed: Dec 31, 2017 Time H&P Reviewed: 12:32 Pre-Operative Diagnosis: Cholecystitis/Cholelithiasis EZEQUIEL HADDAD DO Dec 31, 2017 12:33
[2017-12-31] MEDS ORDERED: DEXAMETHASONE 10 MG/ML (DECADRON) 1 ML VIAL ONE (12:56)
--- NOTE | 2017-12-31 13:39 | Progress Note-Post Operative ---
Post-Operative Progess Note Surgeon (s)/Microwave Radio Technician (s) Surgeon EZEQUIEL HADDAD DO Microwave Radio Technician: Nir Pre-Operative Diagnosis Cholecystitis/Cholelithiasis Post-Operative Diagnosis Same, plus Diastasis Recti Procedure & Operative Findings Date of Procedure 12/31/17 Procedure Performed/Findings Lap afua with IOC Anesthesia Type GET Estimated Blood Loss Estimated blood loss (mL): scant Specimens/Packing Specimens Removed GB and contents EZEQUIEL HADDAD DO Dec 31, 2017 13:39
[2017-12-31] MEDS ORDERED: NEOSTIGMINE 1 MG/ML 5 ML SYRINGE ONE (13:41)
[2017-12-31] MEDS ORDERED: PHENYLEPHRINE INJ 10 MG/ML (NEO-SYNEPHRINE 1%) ONE (13:41)
[2017-12-31] MEDS ORDERED: GLYCOPYRROLATE 0.2 MG/ML (ROBINUL) 2 ML VIAL ONE (13:41)
--- NOTE | 2017-12-31 13:41 | Discharge Inst-Surgical ---
Discharge Inst-Surgical Depart Medication/Instructions New, Converted or Re-Newed RX: Other (Pt already has Rx) Patient Instructions Follow up Appt: Make appointment for 1 weeks. Instructions: No lifting greater than 10 pounds. No strenuous activity. May shower in 24 hours, no tub bath or soaking. Use incentive spirometer at home as directed. No Smoking Skin/Wound Care: May remove bandages in am. You need to leave the Dermabond on over incision it will fall off on its own. Symptoms to Report: Appetite Changes, Extremity Discoloration, Numbness/Tingling, Swelling Increased , Bleeding Excessive, Eyesight Changes, Pain Increased, Urine Color Change, Constipation(Persistent), Fever over 101 degree F, Pain/Pressure in chest, Urinating Difficulty, Cough Up/Vomit Blood, Heart Beat Irreg/Pounding, Pain/ Pressure in jaw, Vaginal Bleeding Increase, Cramps in feet or legs, Lightheadedness, Pain/Pressure in shoulder, Diarrhea(Persistent), Memory Changes Suddenly, Questions/Concerns, Weight gain consecutive days, Dizziness/ Fainting, Nausea/Vomiting, Shortness of Breath, Weight gain over 2 pounds. If eyes or skin turn yellow notify physician. If questions or concerns contact your physician Or seek help at emergency department. Activity Activity as Tolerated: Yes Activity Instructions: Avoid Pulling & Pushing, Avoid Stress to Incision Driving Instructions: No Driving/Refer to Diet Discharge Diet: Avoid Fatty Foods, Low Fat/Low Cholesterol Diet After 24 Hours: Clear Liquid if Nauseous If Any Problems/Questions/Issu: Contact Your Physician, Go to Emergency Room Skin/Wound Care Infection Signs and Symptoms: Increased Redness, Foul Odor of Wound, Increased Drainage, Skin Itchy or Has a Rash, Increased Swelling, Temperature Above 101 F Wound Care Comment: Heating pad to shoulder or neck tonight for pain Bathing Instructions: Shower Stitches/Jordan/Dermabond Dis: Dermabond Ice Pack: Ice On and Off Site (as needed for pain) EZEQUIEL HADDAD DO Dec 31, 2017 13:41
[2017-12-31] MEDS ORDERED: SEVOFLURANE (ULTANE) 15 ML INHAL SOLN ONE (13:54)
[2017-12-31] MEDS ORDERED: PHENYLEPHRINE 100 MCG/ML 10 ML (ANESTHESIA) SYR ONE (13:55)
[2017-12-31] MEDS: MEPERIDINE (DEMEROL) INJ 50 MG/ML IVP PRN ×2 (14:08→14:18)
[2017-12-31] MEDS: fentaNYL INJECTION 100 MCG/2 ML AMP IVP PRN ×2 (14:10→14:24)
[2017-12-31] MEDS ORDERED: ONDANSETRON 4 MG/2 ML (SDV) Z0FRAN IVP PRN (14:15)
[2017-12-31] MEDS: PROMETHAZINE INJ 25 MG/ML (PHENERGAN) AMP IVP PRN ×2 (14:33→14:37)
[2017-12-31 15:05] VITALS: BP 102/57
[2017-12-31 15:35] VITALS: BP 110/69
[2017-12-31 16:05] VITALS: BP 106/73
[2017-12-31 16:35] VITALS: BP 106/73
--- NOTE | 2017-12-31 19:26 | Diagnostic Imaging Report ---
INDICATION: Fluoroscopy for intraoperative cholangiogram during cystectomy. FINDINGS: Total of 43 seconds of fluoroscopy was utilized. Contrast is being injected via the cystic duct remnant. Extrahepatic bile duct is unremarkable. There is flow into the duodenum. There is poor visualization of the intrahepatic bile ducts. IMPRESSION: Fluoroscopy during intraoperative cholangiogram. Dictated by: Dictated on workstation # [id number]
--- NOTE | 2017-12-31 22:55 | OPERATIVE REPORT ---
DATE OF SERVICE: PREOPERATIVE DIAGNOSES: Chronic cholecystitis, cholelithiasis. POSTOPERATIVE DIAGNOSES: Chronic cholecystitis, cholelithiasis, pending pathology. PROCEDURES: Laparoscopic cholecystectomy, intraoperative cholangiogram. SURGEON: Michael Carey DO. PRINT BUYER: Hakeem Loyola DO. ANESTHESIA: General endotracheal tube. SPECIMEN: Gallbladder and contents. BLOOD LOSS: Scant. FLUIDS: Per anesthesia. POSTOPERATIVE CONDITION: Stable. INDICATION FOR PROCEDURE: The patient is a 27-year-old female who was recently in the ER with abdominal pain. Ultrasound showed stones and the patient states she had a history of gallbladder problems and then has been told before she has gallbladder disease. FINDINGS: The patient had one or two adhesions of the gallbladder usually indicative of previous gallbladder attacks. No edema and no thickening of gallbladder wall. Cholangiogram showed no stones in the duct. PROCEDURE NOTE: After informed consent was obtained, the patient was brought to the operating room, placed on the table in supine position. She was sterilely prepped and draped in normal fashion. Ioban placed. Then, local lidocaine was used to infiltrate the skin above the umbilicus, made incision with #11 blade, carried down through skin into subcutaneous tissue then deepened down to the subcutaneous tissue with Bovie electrocautery down to the fascia. Fascia incised with Bovie electrocautery and bluntly entered the abdomen, swept the finger around, placed 0 Vicryl [id number] suture and then placed an 11 mm trocar port under direct visualization. Created pneumoperitoneum and then placed 3 more ports in normal fashion using local lidocaine, 11 blade for stab incision and Versed system, all done under direct visualization, one in subxiphoid two in the right upper quadrant. The patient was then placed in reverse Trendelenburg, rotated to the left, able to grasp the gallbladder at the fundus and taken in superior direction, there were some adhesions down to the base. These were carefully taken down with Bovie electrocautery as well as blunt dissection. Once these were freed off then able to grasp down to Ferguson's pouch and pulled in the inferolateral direction, get good visualization of the duct and artery, able to take pictures and then able to get around the duct and artery with Julia forceps and some Bovie electrocautery. Once able to get around them, placed clip distally on the cystic duct and one distally and two proximally in the cystic artery. Cut the cystic duct intermediate through with Metzenbaum scissors. Placed a cholangiogram catheter and shot a cholangiogram. Good spillage of dye down the common bile duct into the small intestine and then released the balloon and watched to go up just past the cystic duct. At this point, removed the cholangiogram catheter, placed two clips proximally in the cystic duct and cut the cystic duct and cystic artery with Metzenbaum scissors. Removed the gallbladder from bed of liver with L-hook cautery, which was completely removed, placed a bag in the abdomen, placed the gallbladder in the bag and then removed this through a supraumbilical incision. Placed the port back in the abdomen, copiously irrigated with normal saline, suctioned this out. There was no bleeding from the bed of the liver. Took pictures and then looked around the abdomen, had a diastasis, possibly hernia seen from her previous C-sections. Pictures were taken at this point, then placed the patient supine, removed all ports under direct visualization, allowed pneumoperitoneum to escape, closed supraumbilical incision, closing the fascia with 0 Vicryl suture previously placed. Copiously irrigated all incisions with normal saline, closing the 3 small 5 mm incision with a single interrupted 4-0 undyed Monocryl subcuticular stitch, closed the supraumbilical incision with 3 interrupted 4-0 undyed Monocryl subcuticular stitches. Area was cleaned and dried and Dermabond placed as well as dressing. The patient then transferred to recovery room in stable condition. Sponge, instrument, and needle count correct at the end of the case. Dr. Loyola assisted in this case helping to make incisions close incisions, identifying anatomy and help with visualization. Job ID: [id number] DocumentID: [id number] Dictated Date: 12/31/2017 15:40:24 Home Theater Experience Expert Date: 12/31/2017 22:55:02 Dictated By: MICHAEL CAREY DO
== END 2017-12-31 16:35 | disposition home or self-care (01) ==
LOC: SDC 10:35
PROVIDERS: ATTEND Surgery
DX: K80.10 Calculus of gallbladder with chronic cholecystitis without obstruction (principal); J45.909 Unspecified asthma, uncomplicated; F17.290 Nicotine dependence, other tobacco product, uncomplicated
CPT/HCPCS: 84703; 87081

== ENCOUNTER 2018-04-28 09:58 | Emergency (ER) | payer MEDICAID ==
[~2018-04-28] VITALS: Ht 167.6 cm; Wt 90.7 kg
[~2018-04-28 09:58] MED LIST changes: +HYDR-4226 PO; -HYDR-757 PO
--- NOTE | 2018-04-28 10:59 | ED Abdominal Pain ---
General Chief Complaint: Abdominal/GI Problems Stated Complaint: 11 WKS PREG;ABD PAIN Nursing Triage Note: C/O ABD CRAMPING SINCE 0630 THIS AM. PT. IS 11 WEEKS . C/O N/V/D. CRAMPS CONSTANTLY. HAS NOT HAD BLEEDING. STATES MURRY'S OFFICE RECOMMENDED SHE COME TO ER Sepsis Screen: No Definite Risk Source of Information: Patient Exam Limitations: No Limitations History of Present Illness Date Seen by Provider: Apr 28, 2018 Time Seen by Provider: 10:59 Initial Comments The patient is a 27 year old female who presents to the emergency room with complains of nausea, vomiting, and diarrhea that started this morning around 0630. She is 11 weeks but denies any vaginal bleeding. She tried to make an appointment with OBGYN and they referred her to the ER. Denies fevers. Timing/Duration: 4-6 Hours Severity/Quality: Cramping Location: Generalized Abdomen Radiation: No Radiation Associated Symptoms: Nausea/Vomiting Allergies and Home Medications Allergies Coded Allergies: Penicillins (Unverified Allergy, Severe, ANAPHYLAXIS, 12/30/17) aripiprazole (Unverified Allergy, Mild, HIVES, 12/30/17) Home Medications Cephalexin 500 Mg Capsule, 500 MG PO BID Prescribed by: BRIANNA GILLIAM on 04/28/18 1144 Multivitamin/Iron/Folic Acid 1 Each Tablet, 1 EACH PO DAILY, (Reported) Patient Home Medication List Home Medication List Reviewed: Yes Review of Systems Review of Systems Constitutional: no symptoms reported, see HPI Gastrointestinal: See HPI, Diarrhea, Nausea, Vomiting All Other Systems Reviewed Negative Unless Noted: Yes Past Geumpip-Uoowef-Psqpah Hx Past Med/Social Hx: Reviewed Nursing Past Med/Soc Hx Patient Social History Alcohol Use: Denies Use Number of Drinks Today: Alcohol Beverage of Choice: Wine Recreational Drug Use: No Type Used: Electronic/Vapor Former Smoker, Quit: Jun 22, 2011 2nd Hand Smoke Exposure: No Recent Foreign Travel: No Contact w/Someone Who Travel: No Recent Infectious Disease Expo: No Recent Hopitalizations: No Immunizations Up To Date Date of Influenza Vaccine: Feb 20, 2018 Seasonal Allergies Seasonal Allergies: Yes Past Medical History Surgeries: Yes (eye surgery, CS X3, HIP CHOLEYCYSTECTOMY DECEMBER 2017) Section, Eye Surgery, Gallbladder Respiratory: Yes Asthma Cardiac: No Neurological: Yes Headaches /Migraines : Yes Expected Date of Delivery: November 17, 2018 Reproductive Disorders: No Female Reproductive Disorders: Menstrual Problems, Polycystic Ovarian Dis Sexually Transmitted Disease: No HIV/AIDS: No Genitourinary: Yes Kidney Stones Gastrointestinal: Yes Chronic Constipation, Gall Bladder Disease Musculoskeletal: Yes (HIPS) Arthritis Endocrine: No HEENT: No Loss of Vision: Bilateral Hearing Impairment: Denies Cancer: No Psychosocial: Yes Depression Integumentary: Yes Eczema Blood Disorders: No Adverse Reaction/Blood Tranf: No (N/A) Family Medical History Reviewed Nursing Family Hx Physical Exam Vital Signs Vital Signs - First Documented 04/28/18 10:28 Temp 98.5 Pulse 104 Resp 18 B/P (MAP) 106/61 (76) Pulse Ox 97 O2 Delivery Room Air Capillary Refill : Less Than 3 Seconds Height/Weight/BMI Height: 5'6.00" Weight: 200lbs. 0.0oz. [id number]; 30.7 BMI Method:Stated General Appearance: WD/WN, no apparent distress Respiratory: chest non-tender, lungs clear, normal breath sounds, no respiratory distress, no accessory muscle use Cardiovascular: normal peripheral pulses, regular rate, rhythm, no edema, no gallop, no JVD, no murmur Gastrointestinal: normal bowel sounds, non tender, soft, no organomegaly, no pulsatile mass Back: normal inspection, no CVA tenderness, no vertebral tenderness Neurologic/Psychiatric: alert, normal mood/affect, oriented x 3 Skin: normal color, warm/dry Progress/Results/Core Measures Results/Orders Lab Results Laboratory Tests Test 04/28/18 09:59 04/28/18 11:00 04/28/18 11:05 Range/Units Lab Scanned Report Referred Lab Report [id number] White Blood Count 9.0 4.3-11.0 10^3/uL Red Blood Count 5.02 4.35-5.85 10^6/uL Hemoglobin 13.6 11.5-16.0 G/DL Hematocrit 40 35-52 % Mean Corpuscular Volume 80 80-99 FL Mean Corpuscular Hemoglobin 27 25-34 PG Mean Corpuscular Hemoglobin Concent 34 32-36 G/DL Red Cell Distribution Width 14.9 H 10.0-14.5 % Platelet Count 226 130-400 10^3/uL Mean Platelet Volume 11.0 H 7.4-10.4 FL Neutrophils (%) (Auto) 82 H 42-75 % Lymphocytes (%) (Auto) 12 12-44 % Monocytes (%) (Auto) 5 0-12 % Eosinophils (%) (Auto) 1 0-10 % Basophils (%) (Auto) 0 0-10 % Neutrophils # (Auto) 7.4 1.8-7.8 X 10^3 Lymphocytes # (Auto) 1.1 1.0-4.0 X 10^3 Monocytes # (Auto) 0.5 0.0-1.0 X 10^3 Eosinophils # (Auto) 0.1 0.0-0.3 10^3/uL Basophils # (Auto) 0.0 0.0-0.1 10^3/uL Sodium Level 136 135-145 MMOL/L Potassium Level 3.9 3.6-5.0 MMOL/L Chloride Level 106 98-107 MMOL/L Carbon Dioxide Level 23 21-32 MMOL/L Anion Gap 7 5-14 MMOL/L Blood Urea Nitrogen 5 L 7-18 MG/DL Creatinine 0.65 0.60-1.30 MG/DL Estimat Glomerular Filtration Rate > 60 BUN/Creatinine Ratio 8 Glucose Level 89 70-105 MG/DL Calcium Level 9.8 8.5-10.1 MG/DL Corrected Calcium 9.6 8.5-10.1 MG/DL Total Bilirubin 0.3 0.1-1.0 MG/DL Aspartate Amino Transf (AST/SGOT) 13 5-34 U/L Alanine Aminotransferase (ALT/SGPT) 12 0-55 U/L Alkaline Phosphatase 80 40-136 U/L Total Protein 7.7 6.4-8.2 GM/DL Albumin 4.2 3.2-4.5 GM/DL Urine Color TRIPP H Urine Clarity CLEAR Urine pH 5 5-9 Urine Specific [place] 1.025 H 1.016-1.022 Urine Protein 2+ H NEGATIVE Urine Glucose (UA) NEGATIVE NEGATIVE Urine Ketones NEGATIVE NEGATIVE Urine Nitrite NEGATIVE NEGATIVE Urine Bilirubin NEGATIVE NEGATIVE Urine Urobilinogen NORMAL NORMAL MG/DL Urine Leukocyte Esterase 3+ H NEGATIVE Urine RBC (Auto) 1+ H NEGATIVE Urine RBC NONE /HPF Urine WBC 10-25 H /HPF Urine Squamous Epithelial Cells 25-50 H /HPF Urine Crystals PRESENT H /LPF Urine Calcium Oxalate Crystals RARE H /LPF Urine Bacteria MODERATE H /HPF Urine Casts NONE /LPF Urine Mucus MODERATE H /LPF Urine Culture Indicated YES Urine Opiates Screen NEGATIVE NEGATIVE Urine Oxycodone Screen NEGATIVE NEGATIVE Urine Methadone Screen NEGATIVE NEGATIVE Urine Propoxyphene Screen NEGATIVE NEGATIVE Urine Barbiturates Screen NEGATIVE NEGATIVE Ur Tricyclic Antidepressants Screen NEGATIVE NEGATIVE Urine Phencyclidine Screen NEGATIVE NEGATIVE Urine Amphetamines Screen NEGATIVE NEGATIVE Urine Methamphetamines Screen NEGATIVE NEGATIVE Urine Benzodiazepines Screen NEGATIVE NEGATIVE Urine Cocaine Screen NEGATIVE NEGATIVE Urine Cannabinoids Screen NEGATIVE NEGATIVE Micro Results Microbiology 04/28/18 Urine Culture - Final, Complete See Report My Orders Orders - BRIANNA GILLIAM Comprehensive Metabolic Panel (04/28/18 11:02) Ua Culture If Indicated (04/28/18 11:02) Saline Lock/Iv-Start (04/28/18 11:02) Cbc With Automated Diff (04/28/18 11:02) Ondansetron Injection (Zofran Injectio (04/28/18 11:15) Drug Screen Stat (Urine) (04/28/18 11:08) Urine Culture (04/28/18 11:05) Iv Push [employer] Supervisor Ed (04/28/18 ) Medications Given in ED Vital Signs/I&O 04/28/18 04/28/18 10:28 11:52 Temp 98.5 98.5 Pulse 104 95 Resp 18 18 B/P (MAP) 106/61 (76) 110/62 (78) Pulse Ox 97 97 O2 Delivery Room Air Room Air Blood Pressure Mean: 76 Progress Progress Note : Time: 11:40 Progress Note I have seen and evaluated the patient. I have informed her of her laboratory findings. She agrees with plan of care, return precautions were given. Departure Impression Primary Impression: Urinary tract infection Disposition: 01 HOME, SELF-CARE Condition: Stable/Unchanged Departure-Patient Inst. Decision time for Depature: 11:42 Referrals: [facility] (PCP/Family) Primary Care Physician DONALD MURRY DO Patient Instructions: Urinary Tract Infection, Adult (DC) Add. Discharge Instructions: Take medications as directed. Tylenol as directed by the bottle for pain. Drink plenty of water to to help flush out your kidneys and urinary tract. Follow-up with [facility] and Dr. Murry within 1 week for a recheck. Return back to the emergency room for any worsening symptoms or concerns as needed. All discharge instructions reviewed with patient and/or family. Voiced understanding. Scripts Cephalexin (Keflex) 500 Mg Capsule 500 MG PO BID for 7 Days, #14 CAP Prov: BRIANNA GILLIAM 04/28/18 BRIANNA GILLIAM Apr 28, 2018 10:59
[2018-04-28] MEDS ORDERED: ONDANSETRON 4 MG/2 ML (SDV) Z0FRAN IVP ONE (11:15)
[2018-04-28 11:16] LABS: BASOPHILS % (AUTO) 0 % (0-10); EOSINOPHILS # (AUTO) 0.1 10^3/uL (0.0-0.3); EOSINOPHILS % (AUTO) 1 % (0-10); HEMATOCRIT 40 % (35-52); HEMOGLOBIN 13.6 G/DL (11.5-16.0); LYMPHOCYTES # (AUTO) 1.1 X 10^3 (1.0-4.0); LYMPHOCYTES % (AUTO) 12 % (12-44); MEAN CORPUSCULAR HEMOGLOBIN 27 PG (25-34); MEAN CORPUSCULAR HGB CONC 34 G/DL (32-36); MEAN CORPUSCULAR VOLUME 80 FL (80-99); MONOCYTES # (AUTO) 0.5 X 10^3 (0.0-1.0); MONOCYTES % (AUTO) 5 % (0-12); NEUTROPHILS # (AUTO) 7.4 X 10^3 (1.8-7.8); NEUTROPHILS % (AUTO) 82 % (42-75); PLATELET COUNT 226 10^3/uL (130-400); RED BLOOD COUNT 5.02 10^6/uL (4.35-5.85); RED CELL DISTRIBUTION WIDTH 14.9 % (10.0-14.5)
[2018-04-28 11:18] LABS: BILIRUBIN,URINE NEGATIVE (NEGATIVE); CLARITY,URINE CLEAR; COLOR,URINE AMBER; GLUCOSE, URINE (UA) NEGATIVE (NEGATIVE); KETONES,URINE NEGATIVE (NEGATIVE); LEUKOCYTE ESTERASE ,URINE 3+ (NEGATIVE); NITRITE,URINE NEGATIVE (NEGATIVE); PH,URINE 5 (5-9); PROTEIN,URINE 2+ (NEGATIVE); UROBILINOGEN,URINE NORMAL (NORMAL)
[2018-04-28 11:30] LABS: AMPHETAMINE SCREEN, URINE NEGATIVE (NEGATIVE); BARBITURATE SCREEN URINE NEGATIVE (NEGATIVE); BENZODIAZEPINES SCREEN URINE NEGATIVE (NEGATIVE); CANNABINOID SCREEN, URINE NEGATIVE (NEGATIVE); COCAINE SCREEN URINE NEGATIVE (NEGATIVE); METHADONE STAT NEGATIVE (NEGATIVE); METHAMPHETAMINE SCREEN URINE S NEGATIVE (NEGATIVE); OPIATE SCREEN URINE NEGATIVE (NEGATIVE); OXYCODONE STAT NEGATIVE (NEGATIVE); PROPOXYPHENE STAT NEGATIVE (NEGATIVE); TRICYCLIC ANTIDEPRESSANTS SCRE NEGATIVE (NEGATIVE)
[2018-04-28 11:35] LABS: ALANINE AMINOTRANSFERASE 12 U/L (0-55); ALBUMIN 4.2 GM/DL (3.2-4.5); ALKALINE PHOSPHATASE 80 U/L (40-136); BILIRUBIN,TOTAL 0.3 MG/DL (0.1-1.0); BUN/CREATININE RATIO 8; CALCIUM 9.8 MG/DL (8.5-10.1); CARBON DIOXIDE 23 MMOL/L (21-32); CHLORIDE 106 MMOL/L (98-107); CREATININE SERUM 0.65 MG/DL (0.60-1.30); GFR ESTIMATED > 60; GLUCOSE 89 MG/DL (70-105); POTASSIUM 3.9 MMOL/L (3.6-5.0); SODIUM 136 MMOL/L (135-145); TOTAL PROTEIN 7.7 GM/DL (6.4-8.2)
[2018-04-28 11:41] LABS: BACTERIA,URINE MODERATE /HPF; CALCIUM OXALATE CRYSTALS,UR RARE /LPF; SQUAMOUS EPITHELIAL CELL,UR 25-50 /HPF
[2018-04-28] MEDS ORDERED: CEPH-507 PO (11:44)
[2018-04-28 11:52] VITALS: BP 110/62
== END 2018-04-28 11:52 | disposition home or self-care (01) ==
LOC: EDUNIT# 09:58 → ER 09:59
DX: O23.41 Unspecified infection of urinary tract in pregnancy, first trimester (principal); O99.511 Diseases of the respiratory system complicating pregnancy, first trimester; J45.909 Unspecified asthma, uncomplicated; O99.351 Diseases of the nervous system complicating pregnancy, first trimester; G43.909 Migraine, unspecified, not intractable, without status migrainosus; O99.89 Other specified diseases and conditions complicating pregnancy, childbirth and the puerperium; M16.0 Bilateral primary osteoarthritis of hip; O99.341 Other mental disorders complicating pregnancy, first trimester; F32.9 Major depressive disorder, single episode, unspecified; Z87.442 Personal history of urinary calculi; Z88.0 Allergy status to penicillin; Z88.8 Allergy status to other drugs, medicaments and biological substances; Z90.49 Acquired absence of other specified parts of digestive tract; Z3A.11 11 weeks gestation of pregnancy
CPT/HCPCS: 36415; 80053; 80306; 81000; 85025; 87088; 96374

== ENCOUNTER 2018-05-25 16:17 | Emergency (ER) | payer MEDICAID ==
[~2018-05-25] VITALS: Ht 170.2 cm; Wt 90.7 kg
[~2018-05-25 16:17] MED LIST changes: +CEPH-507 PO
[2018-05-25 17:26] LABS: BILIRUBIN,URINE NEGATIVE (NEGATIVE); CLARITY,URINE SLIGHTLY CLOUDY; COLOR,URINE YELLOW; GLUCOSE, URINE (UA) NEGATIVE (NEGATIVE); KETONES,URINE 3+ (NEGATIVE); LEUKOCYTE ESTERASE ,URINE 2+ (NEGATIVE); NITRITE,URINE POSITIVE (NEGATIVE); PH,URINE 6 (5-9); PROTEIN,URINE 2+ (NEGATIVE); UROBILINOGEN,URINE NORMAL (NORMAL)
[2018-05-25 17:43] LABS: BACTERIA,URINE LARGE /HPF
[2018-05-25] MEDS ORDERED: NS IV 1000 ML 1,000 ML IV ONE (18:05)
--- NOTE | 2018-05-25 18:25 | ED Abdominal Pain ---
General Chief Complaint: Abdominal/GI Problems Stated Complaint: ABD PAIN, 14W6D OB Nursing Triage Note: PT PRESENTS TO ER WITH COMPLAINT OF RIGHT SIDED ABD PAIN. STATES SHE HAS HAD THIS ON AND OFF FOR A WHILE BUT WORSENED TODAY. PT IS 14WK6D . DENIES BLEEDING. STATES SHE HAS CRAMPING, BUT DR MURRY TOLD HER IT WAS NORMAL SINCE BABY WAS ATTACHED TO HER C SECTION SCAR. PT STATES SHE CALLED AND TALKED TO DR ORTIZ NURSE AND WAS INSTRUCTED TO COME TO ER IF SHE WAS HAVING SEVERE PAIN. Sepsis Screen: No Definite Risk Source of Information: Patient, Old Records Exam Limitations: No Limitations History of Present Illness Date Seen by Provider: May 25, 2018 Time Seen by Provider: 16:36 Initial Comments This 27-year-old young lady presents at approximately 14 weeks gestational age with right-sided abdominal pain for the past couple of days. It has intensified today. She was seen in this ER April 28 and diagnosed with urinary tract infection. She was prescribed Keflex which she stopped after 5 days due to rash on her abdomen and back. She denies any dysuria or change in frequency. She denies any vaginal symptoms. The pain seems to be crampy in nature and is worse with movement. She has tenderness in the mid right abdomen. She is status post cholecystectomy. She still has her appendix. She denies any fever. Her nausea has been unchanged throughout the . She denies constipation or diarrhea. Her last bowel movement was yesterday and was normal. She takes a vitamin with a stool softener. Allergies and Home Medications Allergies Coded Allergies: Penicillins (Unverified Allergy, Severe, ANAPHYLAXIS, 12/30/17) aripiprazole (Unverified Allergy, Mild, HIVES, 12/30/17) cephalexin (Verified Allergy, Unknown, RASH, 05/25/18) Home Medications Cephalexin 500 Mg Capsule, 500 MG PO BID Prescribed by: BRIANNA GILLIAM on 04/28/18 1144 Multivitamin/Iron/Folic Acid 1 Each Tablet, 1 EACH PO DAILY, (Reported) Patient Home Medication List Home Medication List Reviewed: Yes Review of Systems Review of Systems Constitutional: no symptoms reported EENTM: No Symptoms Reported Respiratory: No Symptoms Reported Cardiovascular: No Symptoms Reported Gastrointestinal: See HPI Genitourinary: See HPI Musculoskeletal: no symptoms reported Skin: no symptoms reported Psychiatric/Neurological: No Symptoms Reported Endocrine: No Symptoms Reported Past Xphtifb-Hnjrrr-Vbdxic Hx Patient Social History Alcohol Use: Denies Use Number of Drinks Today: Alcohol Beverage of Choice: Wine Recreational Drug Use: No Type Used: Electronic/Vapor Former Smoker, Quit: Jun 22, 2011 2nd Hand Smoke Exposure: No Recent Foreign Travel: No Contact w/Someone Who Travel: No Recent Infectious Disease Expo: No Recent Hopitalizations: No Immunizations Up To Date Date of Influenza Vaccine: Feb 20, 2018 Seasonal Allergies Seasonal Allergies: Yes Past Medical History Surgeries: Yes (eye surgery, CS X3, HIP CHOLEYCYSTECTOMY DECEMBER 2017) Section, Eye Surgery, Gallbladder Respiratory: Yes Asthma Cardiac: No Neurological: Yes Headaches /Migraines : Yes Reproductive Disorders: Yes Female Reproductive Disorders: Menstrual Problems, Polycystic Ovarian Dis Sexually Transmitted Disease: No HIV/AIDS: No Genitourinary: Yes Kidney Stones Gastrointestinal: Yes Chronic Constipation, Gall Bladder Disease Musculoskeletal: Yes (HIPS) Arthritis Endocrine: No HEENT: No Loss of Vision: Bilateral Hearing Impairment: Denies Cancer: No Psychosocial: Yes Depression Integumentary: Yes Eczema Blood Disorders: No Adverse Reaction/Blood Tranf: No (N/A) Physical Exam Vital Signs Vital Signs - First Documented 05/25/18 17:06 Temp 98.3 Pulse 80 Resp 20 B/P (MAP) 117/83 (94) Pulse Ox 99 O2 Delivery Room Air Capillary Refill : Less Than 3 Seconds Height/Weight/BMI Height: 5'7.00" Weight: 200lbs. 0.0oz. [id number]; 30.7 BMI Method:Stated General Appearance: WD/WN, no apparent distress HEENT: PERRL/EOMI, normal ENT inspection Neck: normal inspection Respiratory: lungs clear, normal breath sounds, no respiratory distress, no accessory muscle use Cardiovascular: regular rate, rhythm, no edema, no murmur Gastrointestinal: normal bowel sounds, soft, tenderness (mild in the right mid abdomen), other (appropriately gravid) Extremities: normal inspection Neurologic/Psychiatric: tour driver II-XII nml as tested, no motor/sensory deficits, alert, normal mood/affect, oriented x 3 Skin: normal color, warm/dry Progress/Results/Core Measures Results/Orders Lab Results Laboratory Tests Test 05/25/18 17:17 05/25/18 18:23 Range/Units Urine Color YELLOW Urine Clarity SLIGHTLY CLOUDY Urine pH 6 5-9 Urine Specific [place] 1.025 H 1.016-1.022 Urine Protein 2+ H NEGATIVE Urine Glucose (UA) NEGATIVE NEGATIVE Urine Ketones 3+ H NEGATIVE Urine Nitrite POSITIVE H NEGATIVE Urine Bilirubin NEGATIVE NEGATIVE Urine Urobilinogen NORMAL NORMAL MG/DL Urine Leukocyte Esterase 2+ H NEGATIVE Urine RBC (Auto) 2+ H NEGATIVE Urine RBC 2-5 H /HPF Urine WBC 10-25 H /HPF Urine Squamous Epithelial Cells 10-25 H /HPF Urine Crystals NONE /LPF Urine Bacteria LARGE H /HPF Urine Casts NONE /LPF Urine Mucus LARGE H /LPF Urine Culture Indicated YES White Blood Count 8.0 4.3-11.0 10^3/uL Red Blood Count 4.53 4.35-5.85 10^6/uL Hemoglobin 12.6 11.5-16.0 G/DL Hematocrit 36 35-52 % Mean Corpuscular Volume 80 80-99 FL Mean Corpuscular Hemoglobin 28 25-34 PG Mean Corpuscular Hemoglobin Concent 35 32-36 G/DL Red Cell Distribution Width 14.6 H 10.0-14.5 % Platelet Count 208 130-400 10^3/uL Mean Platelet Volume 11.4 H 7.4-10.4 FL Neutrophils (%) (Auto) 70 42-75 % Lymphocytes (%) (Auto) 21 12-44 % Monocytes (%) (Auto) 8 0-12 % Eosinophils (%) (Auto) 1 0-10 % Basophils (%) (Auto) 0 0-10 % Neutrophils # (Auto) 5.6 1.8-7.8 X 10^3 Lymphocytes # (Auto) 1.7 1.0-4.0 X 10^3 Monocytes # (Auto) 0.6 0.0-1.0 X 10^3 Eosinophils # (Auto) 0.1 0.0-0.3 10^3/uL Basophils # (Auto) 0.0 0.0-0.1 10^3/uL My Orders Orders - DINORA EGAN MD Ua Culture If Indicated (05/25/18 16:36) Urine Culture (05/25/18 17:17) Saline Lock/Iv-Start (05/25/18 18:05) Ns Iv 1000 Ml (Sodium Chloride 0.9%) (05/25/18 18:05) Cbc With Automated Diff (05/25/18 18:05) Comprehensive Metabolic Panel (05/25/18 18:05) Nitrofurantoin Capsule,Macro (Macrobid C (05/25/18 18:30) Medications Given in ED Current Medications Medications Dose Ordered Sig/Denia Route Start Time Stop Time Status Last Admin Dose Admin Sodium Chloride 1,000 ml @ 0 mls/hr Q0M ONCE IV 05/25/18 18:05 05/25/18 18:08 DC 05/25/18 18:23 1,000 MLS/HR Vital Signs/I&O 05/25/18 17:06 Temp 98.3 Pulse 80 Resp 20 B/P (MAP) 117/83 (94) Pulse Ox 99 O2 Delivery Room Air Blood Pressure Mean: 94 Progress Progress Note : Progress Note Patient was found to have suspected urinary tract infection. There were 3+ ketones in the urine suggesting hypovolemia. Patient will be hydrated with a liter of IV fluid. She will be treated with Macrobid for urinary tract infection. She has allergies to Keflex and penicillin. Antibiotic selection was discussed with Dr. Muryr. heart tones were in the 150s by Doppler. Departure Impression Primary Impression: Urinary tract infection Qualified Codes: N39.0 - Urinary tract infection, site not specified Additional Impressions: Hypovolemia Right sided abdominal pain Disposition: 01 HOME, SELF-CARE Condition: Improved Departure-Patient Inst. Decision time for Depature: 18:40 Referrals: DONALD MURRY DO (PCP/Family) Primary Care Physician Patient Instructions: Acute Abdomen (Belly Pain), Adult (DC), Urinary Tract Infection, Adult (DC) Add. Discharge Instructions: Drink plenty of clear liquids. Complete your antibiotics as prescribed. Follow-up with Dr. Murry on or Thursday to review urine culture results. Return to care if you have worsening symptoms. All discharge instructions reviewed with patient and/or family. Voiced understanding. Scripts Nitrofurantoin Monohyd/M-Cryst (Macrobid 100 mg Capsule) 100 Mg Capsule 1 TAB PO BID, #14 CAP Prov: DINORA EGAN MD 05/25/18 Copy Copies To 1: DONALD MURRY JOSHUA T MD May 25, 2018 18:25
[2018-05-25] MEDS ORDERED: NITROFURANTOIN 100 MG (MACROBID) CAPSULE PO ONE (18:30)
[2018-05-25 18:31] LABS: BASOPHILS % (AUTO) 0 % (0-10); EOSINOPHILS # (AUTO) 0.1 10^3/uL (0.0-0.3); EOSINOPHILS % (AUTO) 1 % (0-10); HEMATOCRIT 36 % (35-52); HEMOGLOBIN 12.6 G/DL (11.5-16.0); LYMPHOCYTES # (AUTO) 1.7 X 10^3 (1.0-4.0); LYMPHOCYTES % (AUTO) 21 % (12-44); MEAN CORPUSCULAR HEMOGLOBIN 28 PG (25-34); MEAN CORPUSCULAR HGB CONC 35 G/DL (32-36); MEAN CORPUSCULAR VOLUME 80 FL (80-99); MEAN PLATELET VOLUME 11.4 FL (7.4-10.4); MONOCYTES # (AUTO) 0.6 X 10^3 (0.0-1.0); MONOCYTES % (AUTO) 8 % (0-12); NEUTROPHILS # (AUTO) 5.6 X 10^3 (1.8-7.8); NEUTROPHILS % (AUTO) 70 % (42-75); PLATELET COUNT 208 10^3/uL (130-400); RED BLOOD COUNT 4.53 10^6/uL (4.35-5.85); RED CELL DISTRIBUTION WIDTH 14.6 % (10.0-14.5)
[2018-05-25] MEDS ORDERED: NITR-65 PO (18:42)
[2018-05-25 18:50] LABS: ALANINE AMINOTRANSFERASE 15 U/L (0-55); ALBUMIN 3.7 GM/DL (3.2-4.5); ALKALINE PHOSPHATASE 73 U/L (40-136); BILIRUBIN,TOTAL 0.3 MG/DL (0.1-1.0); BUN/CREATININE RATIO 10; CALCIUM 9.3 MG/DL (8.5-10.1); CARBON DIOXIDE 19 MMOL/L (21-32); CHLORIDE 106 MMOL/L (98-107); CREATININE SERUM 0.59 MG/DL (0.60-1.30); GFR ESTIMATED > 60; GLUCOSE 85 MG/DL (70-105); POTASSIUM 3.8 MMOL/L (3.6-5.0); SODIUM 136 MMOL/L (135-145); TOTAL PROTEIN 7.1 GM/DL (6.4-8.2)
[2018-05-25 19:28] VITALS: BP 117/83
== END 2018-05-25 19:28 | disposition home or self-care (01) ==
LOC: EDUNIT# 16:17 → ER 16:18
DX: O23.42 Unspecified infection of urinary tract in pregnancy, second trimester (principal); O99.282 Endocrine, nutritional and metabolic diseases complicating pregnancy, second trimester; E86.1 Hypovolemia; O99.352 Diseases of the nervous system complicating pregnancy, second trimester; G43.909 Migraine, unspecified, not intractable, without status migrainosus; O99.342 Other mental disorders complicating pregnancy, second trimester; F32.9 Major depressive disorder, single episode, unspecified; O99.512 Diseases of the respiratory system complicating pregnancy, second trimester; J45.909 Unspecified asthma, uncomplicated; Z3A.14 14 weeks gestation of pregnancy; Z88.0 Allergy status to penicillin; Z87.448 Personal history of other diseases of urinary system; Z87.19 Personal history of other diseases of the digestive system; Z88.8 Allergy status to other drugs, medicaments and biological substances; Z87.891 Personal history of nicotine dependence; Z90.49 Acquired absence of other specified parts of digestive tract; Z98.890 Other specified postprocedural states
CPT/HCPCS: 36415; 80053; 81000; 85025; 87077; 87088; 87186

== ENCOUNTER 2018-06-10 18:22 | Emergency (ER) | payer MEDICAID ==
[~2018-06-10] VITALS: Ht 167.6 cm; Wt 89.4 kg
[~2018-06-10 18:22] MED LIST changes: +NITR-65 PO
[2018-06-10 19:10] LABS: BILIRUBIN,URINE NEGATIVE (NEGATIVE); CLARITY,URINE VERY CLOUDY; COLOR,URINE AMBER; GLUCOSE, URINE (UA) NEGATIVE (NEGATIVE); KETONES,URINE 1+ (NEGATIVE); LEUKOCYTE ESTERASE ,URINE 2+ (NEGATIVE); NITRITE,URINE POSITIVE (NEGATIVE); PH,URINE 5 (5-9); PROTEIN,URINE 3+ (NEGATIVE); UROBILINOGEN,URINE 1 MG/DL (NORMAL)
[2018-06-10 19:20] LABS: BACTERIA,URINE MODERATE /HPF; RBC,URINE TNTC /HPF
[2018-06-10 19:20] LABS: BASOPHILS % (AUTO) 0 % (0-10); EOSINOPHILS % (AUTO) 0 % (0-10); HEMATOCRIT 35 % (35-52); HEMOGLOBIN 12.2 G/DL (11.5-16.0); LYMPHOCYTES # (AUTO) 0.9 X 10^3 (1.0-4.0); LYMPHOCYTES % (AUTO) 8 % (12-44); MEAN CORPUSCULAR HEMOGLOBIN 28 PG (25-34); MEAN CORPUSCULAR HGB CONC 35 G/DL (32-36); MEAN CORPUSCULAR VOLUME 81 FL (80-99); MEAN PLATELET VOLUME 11.3 FL (7.4-10.4); MONOCYTES # (AUTO) 0.3 X 10^3 (0.0-1.0); MONOCYTES % (AUTO) 3 % (0-12); NEUTROPHILS % (AUTO) 89 % (42-75); PLATELET COUNT 206 10^3/uL (130-400); RED BLOOD COUNT 4.35 10^6/uL (4.35-5.85); RED CELL DISTRIBUTION WIDTH 14.8 % (10.0-14.5); WHITE BLOOD COUNT 11.3 10^3/uL (4.3-11.0)
[2018-06-10 19:22] LABS: AMPHETAMINE SCREEN, URINE NEGATIVE (NEGATIVE); BARBITURATE SCREEN URINE NEGATIVE (NEGATIVE); BENZODIAZEPINES SCREEN URINE NEGATIVE (NEGATIVE); CANNABINOID SCREEN, URINE NEGATIVE (NEGATIVE); COCAINE SCREEN URINE NEGATIVE (NEGATIVE); METHADONE STAT NEGATIVE (NEGATIVE); METHAMPHETAMINE SCREEN URINE S NEGATIVE (NEGATIVE); OPIATE SCREEN URINE NEGATIVE (NEGATIVE); OXYCODONE STAT NEGATIVE (NEGATIVE); PROPOXYPHENE STAT NEGATIVE (NEGATIVE); TRICYCLIC ANTIDEPRESSANTS SCRE NEGATIVE (NEGATIVE)
[2018-06-10] MEDS: LACTATED RINGERS 1,000 ML IV ONE ×2 (19:23→21:30)
[2018-06-10] MEDS: ONDANSETRON 4 MG/2 ML (SDV) Z0FRAN IVP ONE (19:24)
--- NOTE | 2018-06-10 19:33 | ED GI ---
General Chief Complaint: Abdominal/GI Problems Stated Complaint: 17W OB, SHARP PAIN IN UTERUS,VOMITING Nursing Triage Note: PT CO OF ABD PAIN AND NAUSEA AND VOMITING SINCE 1399 TODAY. PT IS 17 WEEKS . PT STATES HAS VOMITED 11X SINCE 1399 TODAY. CO OF ABD PAIN STATES HAS TAKEN BONJESTA FOR NAUSEA Sepsis Screen: No Definite Risk Source of Information: Patient History of Present Illness Date Seen by Provider: Jun 10, 2018 Time Seen by Provider: 19:00 Initial Comments PT ARRIVES VIA POV C/O NAUSEA AND VOMITING SINCE 1400 TODAY--STATES SHE HAS VOMITED 12 TIMES IN THE LAST HOUR C/O SEVERE LOWER ABDOMINAL PAIN RADIATING UP LEFT SIDE TO LEFT FLANK--RATES PAIN "10" AND STATES "AND IT KEEPS SPIKING PAST THAT" --STATES "I COULDN'T STAND UP EARLIER" NO DIARRHEA NO FEVER NO PROBLEMS URINATING, BUT STATES URINE IS DARK STATES SHE HAS BEEN DRINKING LOTS OF WATER AND GATORADE NO SICK CONTACTS OR SUSPICIOUS FOODS PT IS 17 WEEKS --STATES SHE HAS NOT HAD MORNING SICKNESS SINCE 13-14 WEEKS GESTATION NO VAGINAL BLEEDING OR DISCHARGE. PT IS AB1 @ 24 WEEKS (FIRST ) PT SEEN HERE IN ER 04/28 AND DX WITH UTI--GIVEN RX FOR KEFLEX, BUT PT DC'D IT AFTER 5 DAYS DUE TO RASH PT SEEN IN ER 05/25/18 WITH RIGHT SIDED ABDOMINAL PAIN, AND NO URINARY SYMPTOMS , BUT WAS DX WITH UTI AND PLACED ON MACROBID LAST SEEN BY DR. MURRY 05/31 FOR ROUTINE OB APPOINTMENT HAS NOT ATTEMPTED TO CONTACT HER FOR THIS PROBLEM PCP: COOPER-NEHA, BRANDYN CARLOS CAN TESTER: DR. MURRY Allergies and Home Medications Allergies Coded Allergies: Penicillins (Unverified Allergy, Severe, ANAPHYLAXIS, 12/30/17) aripiprazole (Unverified Allergy, Mild, HIVES, 12/30/17) cephalexin (Verified Allergy, Unknown, RASH, 05/25/18) Home Medications Hydrocodone/Acetaminophen 1 Each Tablet, 1 EACH PO Q6H PRN for PAIN-MODERATE Prescribed by: BEAR VERA on 06/10/182007 Nitrofurantoin Monohyd/M-Cryst 100 Mg Capsule, 100 MG PO BID Prescribed by: BEAR VERA on 06/10/182007 Ondansetron HCl 8 Mg Tablet, 8 MG PO Q6H Prescribed by: BEAR VERA on 06/10/182007 Patient Home Medication List Home Medication List Reviewed: Yes Review of Systems Review of Systems Constitutional: no symptoms reported Respiratory: No Symptoms Reported Cardiovascular: No Symptoms Reported Gastrointestinal: See HPI, Abdominal Pain; Denies Diarrhea; Nausea, Vomiting Genitourinary: See HPI; Denies Burning, Denies Discharge, Denies Frequency; Flank Pain; Denies Hematuria, Denies Pain, Denies Urgency Musculoskeletal: no symptoms reported Skin: no symptoms reported Psychiatric/Neurological: No Symptoms Reported Endocrine: No Symptoms Reported Hematologic/Lymphatic: No Symptoms Reported Past Pbhcbuj-Texbou-Dbrxfd Hx Patient Social History Alcohol Use: Rarely Uses Number of Drinks Today: Alcohol Beverage of Choice: Wine Recreational Drug Use: No Smoking Status: Current Everyday Smoker (1/2 PPD, NOW VAPES) Type Used: Cigarettes, Electronic/Vapor 2nd Hand Smoke Exposure: No Recent Foreign Travel: No Contact w/Someone Who Travel: No Recent Infectious Disease Expo: No Recent Hopitalizations: No Immunizations Up To Date Date of Influenza Vaccine: Feb 20, 2018 Seasonal Allergies Seasonal Allergies: Yes Past Medical History Surgeries: Yes (eye surgery, X2; RIGHT HIP SCOPE; LITHOTRIPSY; CHOLEYCYSTECTOMY DECEMBER 2017) Section, Eye Surgery, Gallbladder, Orthopedic, Renal Respiratory: Yes Asthma Cardiac: No Neurological: Yes Headaches /Migraines : Yes (17 WEEKS) Hx : 5 Hx Para: 3 Hx Total # of Abortions (Sp): 1 (AT 24 WEEKS--FIRST ) Reproductive Disorders: Yes Female Reproductive Disorders: Menstrual Problems, Polycystic Ovarian Dis Sexually Transmitted Disease: No HIV/AIDS: No Genitourinary: Yes (S/P LITHOTRIPSY) Bladder Infection, Kidney Stones Gastrointestinal: Yes (S/P MARLENI) Chronic Constipation, Gall Bladder Disease Musculoskeletal: Yes (HIPS) Arthritis Endocrine: No HEENT: No Loss of Vision: Bilateral Hearing Impairment: Denies Cancer: No Psychosocial: Yes Depression Integumentary: Yes Eczema Blood Disorders: No Adverse Reaction/Blood Tranf: No (N/A) Physical Exam Vital Signs Vital Signs - First Documented 06/10/18 18:36 Temp 98.3 Pulse 78 Resp 18 B/P (MAP) 119/75 (90) Pulse Ox 95 Capillary Refill : Less Than 3 Seconds Height/Weight/BMI Height: 5'6.00" Weight: 197lbs. 0.0oz. 89.038234so; 30.7 BMI Method:Stated General Appearance: WD/WN, no apparent distress, other (MALODOROUS) Respiratory: normal breath sounds, no respiratory distress Cardiovascular: regular rate, rhythm, no murmur Gastrointestinal: normal bowel sounds, soft, no organomegaly, no pulsatile mass , tenderness (DIFFUSE LOWER ABDOMINAL TENDERNESS AND LEFT LOWER AND MID ABDOMINAL TENDERNESS AND LEFT FLANK TENDERNESS; FUNDUS AT 1 FB BELOW UMBILICUS AND NON-TENDER ) Extremities: normal inspection, normal capillary refill Back: CVA tenderness (L) Neurologic/Psychiatric: clock repairer II-XII nml as tested, no motor/sensory deficits, alert, normal mood/affect, oriented x 3 Skin: normal color Progress/Results/Core Measures Results/Orders Lab Results Laboratory Tests Test 06/10/18 18:57 06/10/18 19:11 Range/Units Urine Color TRIPP H Urine Clarity VERY CLOUDY H Urine pH 5 5-9 Urine Specific [place] 1.025 H 1.016-1.022 Urine Protein 3+ H NEGATIVE Urine Glucose (UA) NEGATIVE NEGATIVE Urine Ketones 1+ H NEGATIVE Urine Nitrite POSITIVE H NEGATIVE Urine Bilirubin NEGATIVE NEGATIVE Urine Urobilinogen 1 NORMAL MG/DL Urine Leukocyte Esterase 2+ H NEGATIVE Urine RBC (Auto) 5+ H NEGATIVE Urine RBC TNTC H /HPF Urine WBC 5-10 H /HPF Urine Crystals NONE /LPF Urine Bacteria MODERATE H /HPF Urine Casts NONE /LPF Urine Mucus NEGATIVE /LPF Urine Culture Indicated YES Urine Opiates Screen NEGATIVE NEGATIVE Urine Oxycodone Screen NEGATIVE NEGATIVE Urine Methadone Screen NEGATIVE NEGATIVE Urine Propoxyphene Screen NEGATIVE NEGATIVE Urine Barbiturates Screen NEGATIVE NEGATIVE Ur Tricyclic Antidepressants Screen NEGATIVE NEGATIVE Urine Phencyclidine Screen NEGATIVE NEGATIVE Urine Amphetamines Screen NEGATIVE NEGATIVE Urine Methamphetamines Screen NEGATIVE NEGATIVE Urine Benzodiazepines Screen NEGATIVE NEGATIVE Urine Cocaine Screen NEGATIVE NEGATIVE Urine Cannabinoids Screen NEGATIVE NEGATIVE White Blood Count 11.3 H 4.3-11.0 10^3/uL Red Blood Count 4.35 4.35-5.85 10^6/uL Hemoglobin 12.2 11.5-16.0 G/DL Hematocrit 35 35-52 % Mean Corpuscular Volume 81 80-99 FL Mean Corpuscular Hemoglobin 28 25-34 PG Mean Corpuscular Hemoglobin Concent 35 32-36 G/DL Red Cell Distribution Width 14.8 H 10.0-14.5 % Platelet Count 206 130-400 10^3/uL Mean Platelet Volume 11.3 H 7.4-10.4 FL Neutrophils (%) (Auto) 89 H 42-75 % Lymphocytes (%) (Auto) 8 L 12-44 % Monocytes (%) (Auto) 3 0-12 % Eosinophils (%) (Auto) 0 0-10 % Basophils (%) (Auto) 0 0-10 % Neutrophils # (Auto) 10.0 H 1.8-7.8 X 10^3 Lymphocytes # (Auto) 0.9 L 1.0-4.0 X 10^3 Monocytes # (Auto) 0.3 0.0-1.0 X 10^3 Eosinophils # (Auto) 0.0 0.0-0.3 10^3/uL Basophils # (Auto) 0.0 0.0-0.1 10^3/uL Neutrophils % (Manual) 91 % Lymphocytes % (Manual) 5 % Monocytes % (Manual) 3 % Eosinophils % (Manual) 0 % Basophils % (Manual) 1 % Band Neutrophils 0 % Blood Morphology Comment NORMAL Sodium Level 139 135-145 MMOL/L Potassium Level 3.8 3.6-5.0 MMOL/L Chloride Level 108 H 98-107 MMOL/L Carbon Dioxide Level 18 L 21-32 MMOL/L Anion Gap 13 5-14 MMOL/L Blood Urea Nitrogen 8 7-18 MG/DL Creatinine 0.77 0.60-1.30 MG/DL Estimat Glomerular Filtration Rate > 60 BUN/Creatinine Ratio 10 Glucose Level 115 H 70-105 MG/DL Calcium Level 10.2 H 8.5-10.1 MG/DL Corrected Calcium 10.5 H 8.5-10.1 MG/DL Magnesium Level 1.8 1.8-2.4 MG/DL Total Bilirubin 0.2 0.1-1.0 MG/DL Aspartate Amino Transf (AST/SGOT) 16 5-34 U/L Alanine Aminotransferase (ALT/SGPT) 17 0-55 U/L Alkaline Phosphatase 86 40-136 U/L Total Protein 7.0 6.4-8.2 GM/DL Albumin 3.6 3.2-4.5 GM/DL Amylase Level 63 25-125 U/L Lipase 16 8-78 U/L Human Chorionic Gonadotropin, Quant 45974 H <5 MIU/ML My Orders Orders - BEAR VERA DO Saline Lock/Iv-Start (06/10/18 18:56) Monitor-Rhythm Ecg Trace Only (06/10/18 18:56) Amylase (06/10/18 18:56) Cbc With Automated Diff (06/10/18 18:56) Comprehensive Metabolic Panel (06/10/18 18:56) Drug Screen Stat (Urine) (06/10/18 18:56) Hcg,Quantitative (06/10/18 18:56) Lipase (06/10/18 18:56) Magnesium (06/10/18 18:56) Ua Culture If Indicated (06/10/18 18:56) Abo Rh Type (06/10/18 18:56) Saline Lock/Iv-Start (06/10/18 18:56) Lactated Ringers (Lr 1000 Ml Iv Solution (06/10/18 18:56) Ondansetron Injection (Zofran Injectio (06/10/18 19:00) Heart Tones (06/10/18 18:56) Urine Culture (06/10/18 18:57) Manual Differential (06/10/18 19:11) Saline Lock/Iv-Start (06/10/18 19:59) Lactated Ringers (Lr 1000 Ml Iv Solution (06/10/18 19:59) Ceftriaxone For Iv Use (Rocephin For I (06/10/18 20:00) Morphine Injection (Morphine Injection (06/10/18 19:59) Rx-Nitrofurantoin [place] (Rx-Macrobid) (06/10/18 20:17) Rx-Hydrocodone/Apap 5-325 Mg (Rx-Vicodin (06/10/18 20:30) Rx-Ondansetron Po (Rx-Zofran Po) (06/10/18 20:17) Medications Given in ED Current Medications Medications Dose Ordered Sig/Denia Route Start Time Stop Time Status Last Admin Dose Admin Acetaminophen/ Hydrocodone Bitart 1 ea Q4H PRN PO 06/10/18 20:30 06/10/18 22:59 DC 06/10/18 20:26 1 EA Ceftriaxone Sodium 1000 mg/ Sodium Chloride 60 ml @ 100 mls/hr ONCE ONCE IV 06/10/18 20:00 06/10/18 20:35 DC 06/10/18 20:19 100 MLS/HR Lactated Ringer's 1,000 ml @ 0 mls/hr Q0M ONCE IV 06/10/18 18:56 06/10/18 19:00 DC 06/10/18 19:23 1,000 MLS/HR Lactated Ringer's 1,000 ml @ 0 mls/hr Q0M ONCE IV 06/10/18 19:59 06/10/18 20:01 DC 06/10/18 21:30 1,000 MLS/HR Ondansetron HCl 8 mg ONCE ONCE IVP 06/10/18 19:00 06/10/18 19:01 DC 06/10/18 19:24 8 MG Vital Signs/I&O 06/10/18 06/10/18 18:36 22:53 Temp 98.3 97.1 Pulse 78 80 Resp 18 28 B/P (MAP) 119/75 (90) 100/63 (75) Pulse Ox 95 100 06/11/18 00:00 Intake Total 2050 ml Balance 2050 ml Blood Pressure Mean: 90 Progress Progress Note : Progress Note LATER DURING ER STAY, AFTER DIRECT QUESTIONING, PT NOW ADMITS TO HISTORY OF KIDNEY STONES AND HAS HAD LITHOTRIPSY IN THE PAST NAUSEA IMPROVED WITH ZOFRAN PAIN IMPROVED WITH MORPHINE PT TOLERATING CLEAR LIQUIDS PRIOR TO DISMISSAL, NO FURTHER VOMITING AFTER ZOFRAN FHR 154 Departure Communication (Admissions) 1954--SPOKE WITH DR. MURRY, SHE AGREES THAT PT IS LIKELY PASSING A KIDNEY STONE. DOES NOT ADVISE EMERGENT TRANSFER FOR ULTRASOUND ( NO ULTRASOUND AVAILABLE TONIGHT) SHE STATES THAT HER OFFICE WILL CONTACT HER IN THE MORNING FOR FOLLOW UP, AND IF SYMPTOMS ARE STILL PRESENT, THEY WILL ORDER AN OUTPATIENT ULTRASOUND. WILL START ON ANTIBIOTICS AND PAIN MEDICATION. Impression Primary Impression: Urinary tract infection Additional Impressions: Microscopic hematuria 17 weeks gestation of Hx of renal calculi SUSPECTED KINDEY STONE Disposition: 01 HOME, SELF-CARE Condition: Improved Departure-Patient Inst. Referrals: DONALD MURRY DO (PCP/Family) Primary Care Physician Patient Instructions: Kidney Stones (DC), Renal Colic (DC), Urinary Tract Infection, Adult (DC) Add. Discharge Instructions: LOTS OF CLEAR LIQUIDS--WATER, BROTH, JELLO, GATORADE--AT LEAST 80 OZ OF WATER A DAY STRAIN ALL URINE--RETURN ANY STONES TO DR MURRY'S OFFICE FOLLOW UP WITH DR. MURRY'S OFFICE TOMORROW FOR FURTHER CARE RETURN TO ER IF WORSE All discharge instructions reviewed with patient and/or family. Voiced understanding. Scripts Hydrocodone/Acetaminophen (Hydrocodon-Acetaminophn 10-325) 1 Each Tablet 1 EACH PO Q6H PRN for PAIN-MODERATE MDD 5, #20 TAB Prov: BEAR VERA DO 06/10/18 Ondansetron HCl (Zofran) 8 Mg Tablet 8 MG PO Q6H for Nausea/Vomiting, #10 TAB Prov: BEAR VERA DO 06/10/18 Nitrofurantoin Monohyd/M-Cryst (Macrobid 100 mg Capsule) 100 Mg Capsule 100 MG PO BID, #30 CAP Prov: BEAR VERA DO 06/10/18 BEAR VERA DO Jun 10, 2018 19:33
[2018-06-10 19:39] LABS: BAND NEUTROPHILS 0 %; BASOPHILS % (MANUAL) 1 %; EOSINOPHILS % (MANUAL) 0 %; LYMPHOCYTES % (MANUAL) 5 %; MONOCYTES % (MANUAL) 3 %; NEUTROPHILS % (MANUAL) 91 %; RBC MORPH NORMAL
[2018-06-10 19:41] LABS: ALANINE AMINOTRANSFERASE 17 U/L (0-55); ALBUMIN 3.6 GM/DL (3.2-4.5); ALKALINE PHOSPHATASE 86 U/L (40-136); AMYLASE 63 U/L (25-125); BILIRUBIN,TOTAL 0.2 MG/DL (0.1-1.0); BUN/CREATININE RATIO 10; CALCIUM 10.2 MG/DL (8.5-10.1); CARBON DIOXIDE 18 MMOL/L (21-32); CREATININE SERUM 0.77 MG/DL (0.60-1.30); GFR ESTIMATED > 60; GLUCOSE 115 MG/DL (70-105); LIPASE 16 U/L (8-78)
[2018-06-10] MEDS ORDERED: NITR-65 PO (20:08)
[2018-06-10] MEDS ORDERED: ONDA8TAB6 PO (20:08)
[2018-06-10] MEDS ORDERED: HYDR-3820 PO (20:08)
[2018-06-10 20:13] LABS: CHLORIDE 108 MMOL/L (98-107); MAGNESIUM 1.8 MG/DL (1.8-2.4); POTASSIUM 3.8 MMOL/L (3.6-5.0); SODIUM 139 MMOL/L (135-145)
[2018-06-10] MEDS: cefTRIAXone FOR IV USE 1,000 MG in NS (IVPB) 50 ML IV ONE (20:19)
[2018-06-10] MEDS: morphine INJ 10 MG/ML 1ML (SYR OR VIAL) IVP STA (20:19)
[2018-06-10] MEDS: RX-ONDANSETRON 4 MG ODT (ZOFRAN) PPK #4 PO STA (20:26)
[2018-06-10] MEDS: RX-NITROFURANTOIN 100 MG (MACROBID) CAP PPK#2 PO STA (20:26)
[2018-06-10] MEDS: RX-HYDROCODONE/APAP 5/325 MG #4 TAB PK PO PRN (20:26)
[2018-06-10 22:53] VITALS: BP 100/63
== END 2018-06-10 22:53 | disposition home or self-care (01) ==
LOC: ER 18:22 → EDUNIT# 18:22 → ER 22:53
DX: O23.42 Unspecified infection of urinary tract in pregnancy, second trimester (principal); O99.332 Smoking (tobacco) complicating pregnancy, second trimester; F17.210 Nicotine dependence, cigarettes, uncomplicated; O99.512 Diseases of the respiratory system complicating pregnancy, second trimester; O99.352 Diseases of the nervous system complicating pregnancy, second trimester; J45.909 Unspecified asthma, uncomplicated; G43.909 Migraine, unspecified, not intractable, without status migrainosus; O99.342 Other mental disorders complicating pregnancy, second trimester; F32.9 Major depressive disorder, single episode, unspecified; Z88.0 Allergy status to penicillin; Z88.1 Allergy status to other antibiotic agents; Z88.8 Allergy status to other drugs, medicaments and biological substances; Z3A.17 17 weeks gestation of pregnancy; Z87.442 Personal history of urinary calculi
CPT/HCPCS: 36415; 80053; 80306; 81000; 82150; 83690; 83735; 84702; 85007; 85027; 86900; 86901; 87088; 93041; 96361; 96365; 96375

== ENCOUNTER → 2018-06-11 | Outpatient (CLI) | payer MEDICAID ==
[~2018-06-11] MED LIST changes: +HYDR-3820 PO; +ONDA8TAB6 PO
--- NOTE | 2018-06-11 16:17 | Diagnostic Imaging Report ---
PROCEDURE: US Renal Bilateral. TECHNIQUE: Multiple real-time grayscale images were obtained over the kidneys in various projections bilaterally. INDICATION: Flank pain. Hematuria. History of nephrolithiasis. COMPARISON: None. FINDINGS: Both kidneys are normal in size and echogenicity. The right kidney measures 11.4 cm in length and the left is 10.7 cm. The cortical thickness and the cortical medullary differentiation is well maintained. There is no evidence of calculi, focal mass or hydronephrosis. Limited views of the pelvis demonstrate moderately distended urinary bladder. Ureteral jets cannot be demonstrated on either side, but no large intraluminal masses or calculi are present. There is no ascites. IMPRESSION: Normal renal sonogram. Dictated by: Dictated on workstation # [id number]
== END ==
LOC: RAD 13:31
PROVIDERS: ATTEND Obstetrics & Gynecology
DX: R10.9 Unspecified abdominal pain (principal); R31.9 Hematuria, unspecified; Z87.442 Personal history of urinary calculi
CPT/HCPCS: 76770

== ENCOUNTER → 2018-06-18 | Outpatient (CLI) | payer MEDICAID ==
--- NOTE | 2018-06-18 11:30 | Diagnostic Imaging Report ---
INDICATION: Second trimester , survey. TECHNIQUE: Multiple real-time grayscale images were obtained over the gravid uterus. COMPARISON: None FINDINGS: A single live intrauterine fetus is seen measuring 18 weeks 5 days by composite measurements. Fetus is in transverse orientation with heart rate 153 beats per minute. Placenta is anterior and grade 1 with no evidence of previa. Amniotic fluid appears qualitatively normal. There is a normal-appearing survey including normal appearance of the kidneys, bladder, stomach, intracranial ventricles, and four-chamber heart. Normal-appearing three-vessel cord and cord insertion noted. The spine appears unremarkable. Maternal adnexa showed no free fluid, ovaries could not be visualized. Biometrical measurements are as follows: Biparietal 4.14 cm, age 18 weeks 4 days. Head circumference 15.50 cm, age 18 weeks 4 days. Abdominal circumference 13.33 cm, age 18 weeks 6 days. Femur length 2.84 cm, age 18 weeks 5 days. Sonographic estimate age: 18 weeks 5 days. Sonographic estimated date of delivery: 11/14/2018. Estimated Weight: 255 gm (+/- 37 gm). LMP percentile: 73%. heart rate: 153 beats per minute. number: 1 of 1. IMPRESSION: Single live intrauterine fetus measuring at 18 weeks 5 days as above. There is no detectable abnormality. Dictated by: Dictated on workstation # [id number]
== END ==
LOC: RAD 09:42
PROVIDERS: ATTEND Obstetrics & Gynecology
DX: O46.92 Antepartum hemorrhage, unspecified, second trimester (principal); Z3A.18 18 weeks gestation of pregnancy
CPT/HCPCS: 76805

== ENCOUNTER 2018-08-22 13:07 | Outpatient (CLI) | payer MEDICAID ==
[~2018-08-22] VITALS: Ht 167.6 cm; Wt 94.8 kg
--- NOTE | 2018-08-22 13:10 | NUR ---
DANAE TOVAR presented to unit via ambulatory from home, accompanied by mother and daughter, with c/o ABD PAIN,PELVIC PAIN. DANAE TOVAR weighed, gowned, voided, and to bed. EFHM and TOCO applied, VS taken. DANAE TOVAR oriented to bed controls, call light, TV, heat, and A/C controls. Patient complains of abdominal pain from breast to pubic area, mostly in front, somewhat on side for 2 days. States pain is a 8-9 on pain scale, but patient is very cheerful, does not flinch when monitor placed on abdomen, using cell phone. Plan of care reviewed with patient.
[2018-08-22 13:37] VITALS: BP 116/64
[2018-08-22 13:54] LABS: BILIRUBIN,URINE NEGATIVE (NEGATIVE); CLARITY,URINE VERY CLOUDY; COLOR,URINE YELLOW; GLUCOSE, URINE (UA) NEGATIVE (NEGATIVE); KETONES,URINE NEGATIVE (NEGATIVE); LEUKOCYTE ESTERASE ,URINE 1+ (NEGATIVE); NITRITE,URINE NEGATIVE (NEGATIVE); PH,URINE 7 (5-9); PROTEIN,URINE NEGATIVE (NEGATIVE); UROBILINOGEN,URINE NORMAL (NORMAL)
--- NOTE | 2018-08-22 13:55 | NUR ---
FHR baseline 145 with accelerations with movement. No decels noted. Infant very active. No contractions noted. SVE done per physician order, closed, -1 station, 50% effaced. Awaiting urine results.
[2018-08-22 14:03] LABS: AMORPHOUS SEDIMENT,UR LARGE AMOR URATES /LPF; BACTERIA,URINE FEW /HPF; SQUAMOUS EPITHELIAL CELL,UR 0-2 /HPF
--- NOTE | 2018-08-22 14:30 | NUR ---
Dr. Bobo notified of urine results. New order to call in prescription for patient for Macrobid 100mg po BID for 7 days. Patient requests this be called to [facility].
--- NOTE | 2018-08-22 14:40 | NUR ---
EFM dc'd Patient up to dress. FHR remained with baseline of 145, good accelerations with FM, moderate variability. No contractions noted.
[2018-08-22] MEDS ORDERED: PREN-142 PO (14:50)
--- NOTE | 2018-08-22 15:05 | NUR ---
Dismissal instructions reviewed with patient. States understanding. [facility] has an appointment with Dr. Granado for this . Discussed need to increase water intake.
--- NOTE | 2018-08-22 15:10 | NUR ---
Patient dismissed ambulatory with , off [facility] unit. Appears without distress.
== END 2018-08-22 15:10 | disposition home or self-care (01) ==
LOC: WSo 13:07 → LDRP 13:07 → WSo 15:10
PROVIDERS: ATTEND Obstetrics & Gynecology
DX: O99.89 Other specified diseases and conditions complicating pregnancy, childbirth and the puerperium (principal); R10.9 Unspecified abdominal pain; Z3A.27 27 weeks gestation of pregnancy
CPT/HCPCS: 81000; 87088; 99213

== ENCOUNTER 2018-09-10 18:25 | Observation (INO) | payer MEDICAID ==
[~2018-09-10] VITALS: Ht 167.6 cm; Wt 95.8 kg
--- NOTE | 2018-09-10 07:30 | NUR ---
REPORT TO ONCOMING SHIFT. Addendum: 09/11/18 at 0802 by SEPTEMBER Lindy AGUILERA RN WRONG DATE. SHOULD BE 09/11/18
[~2018-09-10 18:25] MED LIST changes: +PREN-142 PO
--- NOTE | 2018-09-10 19:15 | NUR ---
DANAE TOVAR presented to unit via WC from ED, accompanied by family, with c/o VOMITING. DANAE TOVAR weighed, gowned, voided, and to bed. EFHM and TOCO applied, VS taken. DANAE TOVAR oriented to bed controls, call light, TV, heat, and A/C controls.
[2018-09-10 19:25] VITALS: BP 92/57
[2018-09-10 19:32] LABS: CLARITY,URINE VERY CLOUDY; COLOR,URINE YELLOW; GLUCOSE, URINE (UA) NEGATIVE (NEGATIVE); KETONES,URINE 4+ (NEGATIVE); LEUKOCYTE ESTERASE ,URINE 1+ (NEGATIVE); NITRITE,URINE NEGATIVE (NEGATIVE); PH,URINE 5 (5-9); PROTEIN,URINE 2+ (NEGATIVE); UROBILINOGEN,URINE 1 MG/DL (NORMAL)
[2018-09-10 19:40] LABS: BILIRUBIN,URINE 1+ (NEGATIVE)
--- NOTE | 2018-09-10 19:40 | NUR ---
EMESIS 300CC BILE FLUID
[2018-09-10 19:42] LABS: BACTERIA,URINE LARGE /HPF; SQUAMOUS EPITHELIAL CELL,UR >50 /HPF
--- NOTE | 2018-09-10 19:48 | NUR ---
DR JOHNSTON NOTIFIED OF PT ARRIVAL AND C/O. NEW ORDERS RECEIVED.
[2018-09-10] MEDS ORDERED: D5 LR IV SOLUTION 1,000 ML IV ONE ×2 (19:51→20:15)
[2018-09-10] MEDS ORDERED: ONDANSETRON 4 MG/2 ML (SDV) Z0FRAN ONE (19:51)
[2018-09-10 20:14] LABS: BASOPHILS % (AUTO) 0 % (0-10); EOSINOPHILS % (AUTO) 0 % (0-10); HEMATOCRIT 34 % (35-52); HEMOGLOBIN 11.2 G/DL (11.5-16.0); LYMPHOCYTES # (AUTO) 0.5 X 10^3 (1.0-4.0); LYMPHOCYTES % (AUTO) 5 % (12-44); MEAN CORPUSCULAR HEMOGLOBIN 27 PG (25-34); MEAN CORPUSCULAR HGB CONC 33 G/DL (32-36); MEAN CORPUSCULAR VOLUME 81 FL (80-99); MEAN PLATELET VOLUME 11.1 FL (7.4-10.4); MONOCYTES # (AUTO) 0.4 X 10^3 (0.0-1.0); MONOCYTES % (AUTO) 4 % (0-12); NEUTROPHILS # (AUTO) 10.3 X 10^3 (1.8-7.8); NEUTROPHILS % (AUTO) 92 % (42-75); PLATELET COUNT 205 10^3/uL (130-400); RED CELL DISTRIBUTION WIDTH 14.4 % (10.0-14.5); WHITE BLOOD COUNT 11.2 10^3/uL (4.3-11.0)
[2018-09-10] MEDS ORDERED: ONDANSETRON 4 MG/2 ML (SDV) Z0FRAN IVP ONE (20:15)
[2018-09-10 20:42] LABS: BAND NEUTROPHILS 3 %; BASOPHILS % (MANUAL) 0 %; EOSINOPHILS % (MANUAL) 0 %; LYMPHOCYTES % (MANUAL) 4 %; MONOCYTES % (MANUAL) 2 %; NEUTROPHILS % (MANUAL) 91 %; RBC MORPH NORMAL
[2018-09-10 20:47] LABS: ALANINE AMINOTRANSFERASE 9 U/L (0-55); ALBUMIN 3.3 GM/DL (3.2-4.5); ALKALINE PHOSPHATASE 134 U/L (40-136); BILIRUBIN,TOTAL 0.6 MG/DL (0.1-1.0); BUN/CREATININE RATIO 12; CALCIUM 8.6 MG/DL (8.5-10.1); CARBON DIOXIDE 17 MMOL/L (21-32); CHLORIDE 110 MMOL/L (98-107); CREATININE SERUM 0.66 MG/DL (0.60-1.30); GFR ESTIMATED > 60; GLUCOSE 92 MG/DL (70-105); POTASSIUM 3.5 MMOL/L (3.6-5.0); SODIUM 137 MMOL/L (135-145); TOTAL PROTEIN 6.6 GM/DL (6.4-8.2)
--- NOTE | 2018-09-10 22:31 | NUR ---
1st liter IVF infused. Discussed with pt that all results were reviewed with Dr Leong and that this is most likely a gastrointestinal virus and will just have to run its course. Pt has had no further vomiting since 0. Upon asking pt if she feels comfortable with going home, she reports "no" as she is still not feeling well and has no nausea meds at home in case she starts vomiting again. Also states that with the pharmacy being closed she can go citrus picker a prescription tonight. Pt requests to stay for IVF through the night.
[2018-09-10 23:30] VITALS: BP 93/55
[2018-09-11] MEDS ORDERED: D5 LR IV SOLUTION 1,000 ML IV SCH
[2018-09-11 02:25] VITALS: BP 102/51
--- NOTE | 2018-09-11 07:30 | NUR ---
REPORT TO ONCOMING SHIFT.
--- NOTE | 2018-09-11 07:58 | NUR ---
IV TO SL 2ND BAG OF IVF HAVE FULLY INFUSED. PT GIVEN MENU AND EDUCATED ON ORDERING BREAKFAST. ENCOURAGED TO TRY SOMETHING LIGHT AND TO GO EASY. PT VERBALIZES UNDERSTANDING.
[2018-09-11 08:00] VITALS: BP 99/57
--- NOTE | 2018-09-11 08:30 | NUR ---
EATING REGULAR DIET WITHOUT PROBLEMS.
--- NOTE | 2018-09-11 09:00 | NUR ---
PT CONTINUES TO SIT STRAIGHT UP IN BED MAKING IT DIFFICULT TO TRACE FETUS AT TIME. NO CTXS NOTED AND PT DENIES FEELING CTXS. FHR 145 WITH MOD VARIABILITY. + ACCELS. NO EMESIS.
--- NOTE | 2018-09-11 09:15 | NUR ---
DR. JOHNSTON HERE TO SEE PT.
[2018-09-11] MEDS ORDERED: ONDA4TAB11 PO (09:22)
--- NOTE | 2018-09-11 09:35 | History & Physical-OB ---
OB - Chief Complaint & HPI Date/Time Date of Admission: Date of Admission: Date seen by a Provider: Sep 10, 2018 Time Seen by a Provider: 09:00 Chief Complaint/History OB-Reason for Admission/Chief: Hx : 5 Hx Para: 3 Expected Date of Delivery: November 17, 2018 Gestational Age in Weeks: 30 Gestational Age in Days: 2 Other reason for admission: Patient admitted for OBs overnight for IVF hydration secondary to dehydration from nausea and vomitting x 1 day. No contractions or other complications noted by the patient. She is feeling much better this morning and has held down her breakfast Admission Nurse Assessment Rev: Yes History of Labs Laboratory Tests Test 09/10/18 19:15 09/10/18 20:00 Range/Units Urine Color YELLOW Urine Clarity VERY CLOUDY H Urine pH 5 5-9 Urine Specific [place] 1.025 H 1.016-1.022 Urine Protein 2+ H NEGATIVE Urine Glucose (UA) NEGATIVE NEGATIVE Urine Ketones 4+ H NEGATIVE Urine Nitrite NEGATIVE NEGATIVE Urine Bilirubin 1+ H NEGATIVE Urine Urobilinogen 1 NORMAL MG/DL Urine Leukocyte Esterase 1+ H NEGATIVE Urine RBC (Auto) NEGATIVE NEGATIVE Urine RBC NONE /HPF Urine WBC 2-5 /HPF Urine Squamous Epithelial Cells >50 H /HPF Urine Crystals NONE /LPF Urine Bacteria LARGE H /HPF Urine Casts NONE /LPF Urine Mucus LARGE H /LPF Urine Culture Indicated NO White Blood Count 11.2 H 4.3-11.0 10^3/uL Red Blood Count 4.22 L 4.35-5.85 10^6/uL Hemoglobin 11.2 L 11.5-16.0 G/DL Hematocrit 34 L 35-52 % Mean Corpuscular Volume 81 80-99 FL Mean Corpuscular Hemoglobin 27 25-34 PG Mean Corpuscular Hemoglobin Concent 33 32-36 G/DL Red Cell Distribution Width 14.4 10.0-14.5 % Platelet Count 205 130-400 10^3/uL Mean Platelet Volume 11.1 H 7.4-10.4 FL Neutrophils (%) (Auto) 92 H 42-75 % Lymphocytes (%) (Auto) 5 L 12-44 % Monocytes (%) (Auto) 4 0-12 % Eosinophils (%) (Auto) 0 0-10 % Basophils (%) (Auto) 0 0-10 % Neutrophils # (Auto) 10.3 H 1.8-7.8 X 10^3 Lymphocytes # (Auto) 0.5 L 1.0-4.0 X 10^3 Monocytes # (Auto) 0.4 0.0-1.0 X 10^3 Eosinophils # (Auto) 0.0 0.0-0.3 10^3/uL Basophils # (Auto) 0.0 0.0-0.1 10^3/uL Neutrophils % (Manual) 91 % Lymphocytes % (Manual) 4 % Monocytes % (Manual) 2 % Eosinophils % (Manual) 0 % Basophils % (Manual) 0 % Band Neutrophils 3 % Blood Morphology Comment NORMAL Sodium Level 137 135-145 MMOL/L Potassium Level 3.5 L 3.6-5.0 MMOL/L Chloride Level 110 H 98-107 MMOL/L Carbon Dioxide Level 17 L 21-32 MMOL/L Anion Gap 10 5-14 MMOL/L Blood Urea Nitrogen 8 7-18 MG/DL Creatinine 0.66 0.60-1.30 MG/DL Estimat Glomerular Filtration Rate > 60 BUN/Creatinine Ratio 12 Glucose Level 92 70-105 MG/DL Calcium Level 8.6 8.5-10.1 MG/DL Corrected Calcium 9.2 8.5-10.1 MG/DL Total Bilirubin 0.6 0.1-1.0 MG/DL Aspartate Amino Transf (AST/SGOT) 15 5-34 U/L Alanine Aminotransferase (ALT/SGPT) 9 0-55 U/L Alkaline Phosphatase 134 40-136 U/L Total Protein 6.6 6.4-8.2 GM/DL Albumin 3.3 3.2-4.5 GM/DL Allergies and Home Medications Allergies Coded Allergies: Penicillins (Unverified Allergy, Severe, ANAPHYLAXIS, 12/30/17) aripiprazole (Unverified Allergy, Mild, HIVES, 12/30/17) cephalexin (Verified Allergy, Unknown, RASH, 05/25/18) Home Medications Ondansetron 4 Mg Tab.rapdis, 4 MG PO Q4H PRN for NAUSEA/VOMITING-1ST LINE Prescribed by: JERRELL JOHNSTON on 09/11/18 0922 Patient Home Medication List Home Medication List Reviewed: Yes OB - History Hx of Present Care: Yes Ultrasounds: Normal mid trimester US Obstetrical Complications: None Medical Complications: Cardiovascular Obstetrical History Hx : 5 Hx Para: 3 Hx Total # of Abortions (Spona: 1 Delivery History Hx Blood Disorders: No Adverse Rxn to Tranfusion: No (N/A) Patient Past Medical History none Social History/Family History HIV/AIDS: No Recent Infectious Disease Expo: No Sexually Transmitted Disease: No 2nd Hand Smoke Exposure: No Immunizations Date of Influenza Vaccine: Feb 20, 2018 OB - Admission Exam Physical Exam Vitals: Vital Signs 09/10/18 09/10/18 09/11/18 19:25 23:30 02:25 Temp 98.1 Pulse 96 Resp 16 B/P (MAP) 102/51 (68) O2 Delivery Room Air HEENT: NCAT Heart: Rhythm Normal Lungs: Clear Abdomen: Gravid Extremities: Normal Reflexes: Normal Heart Rate: 130's Accelerations: Accelerations Present Decelerations: No Decelerations Short Term Variability: Present Long-Term Variability: Average (6-25) Contractions on Admission: None Labs Laboratory Tests Test 09/10/18 19:15 09/10/18 20:00 Range/Units Urine Color YELLOW Urine Clarity VERY CLOUDY H Urine pH 5 5-9 Urine Specific [place] 1.025 H 1.016-1.022 Urine Protein 2+ H NEGATIVE Urine Glucose (UA) NEGATIVE NEGATIVE Urine Ketones 4+ H NEGATIVE Urine Nitrite NEGATIVE NEGATIVE Urine Bilirubin 1+ H NEGATIVE Urine Urobilinogen 1 NORMAL MG/DL Urine Leukocyte Esterase 1+ H NEGATIVE Urine RBC (Auto) NEGATIVE NEGATIVE Urine RBC NONE /HPF Urine WBC 2-5 /HPF Urine Squamous Epithelial Cells >50 H /HPF Urine Crystals NONE /LPF Urine Bacteria LARGE H /HPF Urine Casts NONE /LPF Urine Mucus LARGE H /LPF Urine Culture Indicated NO White Blood Count 11.2 H 4.3-11.0 10^3/uL Red Blood Count 4.22 L 4.35-5.85 10^6/uL Hemoglobin 11.2 L 11.5-16.0 G/DL Hematocrit 34 L 35-52 % Mean Corpuscular Volume 81 80-99 FL Mean Corpuscular Hemoglobin 27 25-34 PG Mean Corpuscular Hemoglobin Concent 33 32-36 G/DL Red Cell Distribution Width 14.4 10.0-14.5 % Platelet Count 205 130-400 10^3/uL Mean Platelet Volume 11.1 H 7.4-10.4 FL Neutrophils (%) (Auto) 92 H 42-75 % Lymphocytes (%) (Auto) 5 L 12-44 % Monocytes (%) (Auto) 4 0-12 % Eosinophils (%) (Auto) 0 0-10 % Basophils (%) (Auto) 0 0-10 % Neutrophils # (Auto) 10.3 H 1.8-7.8 X 10^3 Lymphocytes # (Auto) 0.5 L 1.0-4.0 X 10^3 Monocytes # (Auto) 0.4 0.0-1.0 X 10^3 Eosinophils # (Auto) 0.0 0.0-0.3 10^3/uL Basophils # (Auto) 0.0 0.0-0.1 10^3/uL Neutrophils % (Manual) 91 % Lymphocytes % (Manual) 4 % Monocytes % (Manual) 2 % Eosinophils % (Manual) 0 % Basophils % (Manual) 0 % Band Neutrophils 3 % Blood Morphology Comment NORMAL Sodium Level 137 135-145 MMOL/L Potassium Level 3.5 L 3.6-5.0 MMOL/L Chloride Level 110 H 98-107 MMOL/L Carbon Dioxide Level 17 L 21-32 MMOL/L Anion Gap 10 5-14 MMOL/L Blood Urea Nitrogen 8 7-18 MG/DL Creatinine 0.66 0.60-1.30 MG/DL Estimat Glomerular Filtration Rate > 60 BUN/Creatinine Ratio 12 Glucose Level 92 70-105 MG/DL Calcium Level 8.6 8.5-10.1 MG/DL Corrected Calcium 9.2 8.5-10.1 MG/DL Total Bilirubin 0.6 0.1-1.0 MG/DL Aspartate Amino Transf (AST/SGOT) 15 5-34 U/L Alanine Aminotransferase (ALT/SGPT) 9 0-55 U/L Alkaline Phosphatase 134 40-136 U/L Total Protein 6.6 6.4-8.2 GM/DL Albumin 3.3 3.2-4.5 GM/DL OB - Assessment/Plan/Diagnosis Assessment Assessment: other Admission Dx 28 yo @ 30 weeks gestation Acute gastroenteritis Admission Status: Observation Plan Other Plan IVF hydration given overnight, send home this AM with ODT zofran to use as needed. PTL precautions reviewed. Keep follow up with JERRELL Montero DO Sep 11, 2018 09:35
--- NOTE | 2018-09-11 10:03 | NUR ---
EFM OFF FHR 135 WITH MOD VARIABILITY. +FM WITH + ACCELS. NO CTXS. PREPARING FOR DISCHARGE.
[2018-09-11 10:35] VITALS: BP 99/57
--- NOTE | 2018-09-11 10:35 | NUR ---
DISCHARGE INSTRUCTIONS REVIEWED WITH COPY TO PT. RX GIVEN. STATES UNDERSTANDING OF ALL INSTRUCTIONS AND NEED TO F/U SCHEDULED AND NEEDED. DISMISSED AMB FROM WS IN STABLE CONDITION ACC BY DAUGHTER AND MOTHER.
== END 2018-09-11 10:35 | disposition home or self-care (01) ==
LOC: WSo 18:25 → LDRP 19:03 → WSo 19:03 → LDRP 19:15 → WSo 09-11 10:35 → LDRP 09-11 10:35 → EDSTATUS 09-14 14:18
PROVIDERS: ADMIT Obstetrics & Gynecology; ATTEND Obstetrics & Gynecology
DX: O21.2 Late vomiting of pregnancy (principal); Z3A.30 30 weeks gestation of pregnancy
CPT/HCPCS: 36415; 80053; 81000; 85007; 85025; 85027; 96361; 96374; 99211; 99213; G0378

== ENCOUNTER 2018-10-04 12:42 | Outpatient (CLI) | payer MEDICAID ==
[~2018-10-04] VITALS: Ht 167.6 cm; Wt 97.1 kg
--- NOTE | 2018-10-04 12:34 | NUR ---
DANAE TOVAR presented to unit via ambulation from home, accompanied by s.o., with c/o CONTRACTIONS AND CRAMPING. DANAE TOVAR weighed, gowned, voided, and to bed. EFHM and TOCO applied, VS taken. DANAE TOVAR oriented to bed controls, call light, TV, heat, and A/C controls.
[~2018-10-04 12:42] MED LIST changes: +ONDA4TAB11 PO
[2018-10-04 12:50] VITALS: BP 123/72
[2018-10-04 13:19] LABS: BILIRUBIN,URINE NEGATIVE (NEGATIVE); CLARITY,URINE CLEAR; COLOR,URINE YELLOW; GLUCOSE, URINE (UA) NEGATIVE (NEGATIVE); KETONES,URINE NEGATIVE (NEGATIVE); LEUKOCYTE ESTERASE ,URINE 1+ (NEGATIVE); NITRITE,URINE NEGATIVE (NEGATIVE); PH,URINE 7 (5-9); PROTEIN,URINE NEGATIVE (NEGATIVE); UROBILINOGEN,URINE NORMAL (NORMAL)
[2018-10-04 13:30] VITALS: BP 112/67
[2018-10-04 13:40] LABS: WBC,URINE 0-2 /HPF
[2018-10-04 13:42] LABS: BACTERIA,URINE MODERATE /HPF
--- NOTE | 2018-10-04 13:58 | NUR ---
Dr. Joseph called and notified of pt arrival, c/o cramping and ctx since yesterday 1000, c/o worsening throughout night and today. Denies vaginal leaking or bleeding, but reports losing mucous plug yesterday. notified of SVE, FHR, manufactured ctx pattern, VS, UA, history, and other assessment findings. Order to give 1 tylenol #3 and dismiss home with follow up this week.
[2018-10-04] MEDS ORDERED: APAP 300 MG/CODEINE 30 MG (TYLENOL #3) TAB PO ONE (14:15)
--- NOTE | 2018-10-04 14:34 | NUR ---
Tylenol #3 given. Discharge instructions explained to pt with copy provided to pt. Labor precautions given. Pt notified of follow up appt made for this week. Pt verbalizes understanding of instructions and signs to verify. Ambulates off unit accompanied by family to private vehicle. NO s/s of distress noted.
== END 2018-10-04 14:34 | disposition home or self-care (01) ==
LOC: WSo 12:42 → LDRP 12:44 → WSo 14:34
PROVIDERS: ATTEND Obstetrics & Gynecology
DX: O47.03 False labor before 37 completed weeks of gestation, third trimester (principal); Z3A.33 33 weeks gestation of pregnancy
CPT/HCPCS: 81000; 87088; 99213

== ENCOUNTER 2018-10-24 12:04 | Outpatient (CLI) | payer MEDICAID ==
[~2018-10-24] VITALS: Ht 167.6 cm; Wt 96.7 kg
--- NOTE | 2018-10-24 12:04 | NUR ---
DANAE TOVAR presented to unit from Home, accompanied by Mom, with c/o DIZZY,LIGHTHEADED,SWELLING. DANAE TOVAR weighed, gowned, voided, and to bed. EFHM and TOCO applied, VS taken. DANAE TOVAR oriented to bed controls, call light, TV, heat, and A/C controls.
[2018-10-24 12:11] VITALS: BP 114/73
[2018-10-24 12:48] LABS: BILIRUBIN,URINE NEGATIVE (NEGATIVE); CLARITY,URINE SLIGHTLY CLOUDY; COLOR,URINE YELLOW; GLUCOSE, URINE (UA) NEGATIVE (NEGATIVE); KETONES,URINE NEGATIVE (NEGATIVE); LEUKOCYTE ESTERASE ,URINE 1+ (NEGATIVE); NITRITE,URINE NEGATIVE (NEGATIVE); PH,URINE 6 (5-9); PROTEIN,URINE 1+ (NEGATIVE); UROBILINOGEN,URINE 1 MG/DL (NORMAL)
[2018-10-24] MEDS ORDERED: ACET325T38 PO (12:57)
--- NOTE | 2018-10-24 13:07 | NUR ---
Dr. Leong notified of patient's arrival, complaints, and EFM tracing. New orders received.
--- NOTE | 2018-10-24 13:10 | NUR ---
Reactive NST with moderate variability noted. FHR baseline 135 with accels up to 170's. No decels noted. No uterine ctx's noted.
[2018-10-24 13:32] LABS: BASOPHILS % (AUTO) 0 % (0-10); EOSINOPHILS # (AUTO) 0.1 10^3/uL (0.0-0.3); EOSINOPHILS % (AUTO) 1 % (0-10); HEMATOCRIT 33 % (35-52); HEMOGLOBIN 10.3 G/DL (11.5-16.0); LYMPHOCYTES # (AUTO) 1.7 X 10^3 (1.0-4.0); LYMPHOCYTES % (AUTO) 16 % (12-44); MEAN CORPUSCULAR HEMOGLOBIN 24 PG (25-34); MEAN CORPUSCULAR HGB CONC 31 G/DL (32-36); MEAN CORPUSCULAR VOLUME 77 FL (80-99); MEAN PLATELET VOLUME 11.2 FL (7.4-10.4); MONOCYTES % (AUTO) 9 % (0-12); NEUTROPHILS # (AUTO) 7.8 X 10^3 (1.8-7.8); NEUTROPHILS % (AUTO) 74 % (42-75); PLATELET COUNT 209 10^3/uL (130-400); RED CELL DISTRIBUTION WIDTH 15.9 % (10.0-14.5); WHITE BLOOD COUNT 10.5 10^3/uL (4.3-11.0)
[2018-10-24 13:39] LABS: BACTERIA,URINE FEW /HPF; URIC ACID CRYSTALS,URINE LARGE /LPF; WBC,URINE RARE /HPF
--- NOTE | 2018-10-24 13:43 | NUR ---
Reviewed lab results with Dr. Leong. New orders received.
--- NOTE | 2018-10-24 13:50 | NUR ---
Discharge instructions reviewed with patient both written and verbally. Patient verbalizes understanding and questions answered.
--- NOTE | 2018-10-24 13:53 | NUR ---
Patient discharged at this time and ambulated off unit accompanied by family. No signs or symptoms of distress noted.
== END 2018-10-24 13:53 | disposition home or self-care (01) ==
LOC: WSo 12:04 → LDRP 12:08 → WSo 12:26
PROVIDERS: ATTEND Obstetrics & Gynecology
DX: O99.89 Other specified diseases and conditions complicating pregnancy, childbirth and the puerperium (principal); R42 Dizziness and giddiness; Z3A.36 36 weeks gestation of pregnancy
CPT/HCPCS: 36415; 81000; 85025; 99212

== ENCOUNTER 2018-11-01 11:36 | Outpatient (CLI) | payer MEDICAID ==
[~2018-11-01] VITALS: Ht 167.6 cm; Wt 98.0 kg
--- NOTE | 2018-11-01 11:18 | NUR ---
DANAE TOVAR presented to unit from home accompanied by spouse , with c/o CRAMPING, BACK PAIN. DANAE TOVAR weighed, gowned, voided, and to bed. EFHM and TOCO applied, VS taken. DANAE TOVAR oriented to bed controls, call light, TV, heat, and A/C controls.
[2018-11-01 11:26] VITALS: BP 113/66
[~2018-11-01 11:36] MED LIST changes: +ACET325T38 PO
--- NOTE | 2018-11-01 11:40 | NUR ---
FHR 145 with good accelerations. Pt complains of constant back pain that gets works and lower abdominal cramping. 37.5 weeks with repeat scheduled for 11/10. Small amount of spotting this am after sex last night. Rare contractions seen. Pt tenses up and causes uterine monitor to spike. Cervix 1 cm, 50 %, no bleeding noted. Monitored x 1.5 hours. Pt appears comfortable and talking frequently. 1230 Dr Joseph notified with orders for discharge. Addendum: 11/01/18 at 1322 by CHATA SHELBY RN 1240 FHR 135 with accelerations. Uterine contractions do not appear as normal - as if pt is tensing up to cause them. 1320 Discharged to home with OB outpt discharge instructions. Ambulated to exit with spouse. To follow up with Dr Granado 11/06.
[2018-11-01] MEDS ORDERED: PREN-142 PO (13:07)
--- NOTE | 2018-11-08 11:45 | Physician Query-Final Dx ---
MARCELO MILLAN 11/08/18 1145: Final Diagnosis Give Final Diagnosis Please give Final Diagnosis Dr Joseph Please give a diagnosis and include the weeks of gestation thank you ORTIZ JOSEPH DO 11/12/18 0749: Final Diagnosis Give Final Diagnosis Pelvic pain and dehydration. Instructed to follow up with her Building Construction Estimator 2. Pelvic Pain 3. Dehydration MARCELO MILLAN November 08, 2018 11:45 ORTIZ JOSEPH DO November 12, 2018 07:49
[2018-11-12] MEDS ORDERED: ACET-77 PO (03:22)
[2018-11-12] MEDS ORDERED: FERR-84 PO (03:22)
[2018-11-12] MEDS ORDERED: DOCU100C37 PO (03:22)
[2018-11-12] MEDS ORDERED: OXC5T PO (03:22)
[2018-11-12] MEDS ORDERED: IBUP-844 PO (03:22)
== END 2018-11-01 12:40 | disposition home or self-care (01) ==
LOC: LDRP 11:36 → WSo 11:36 → LDRP 12:04 → WSo 12:40
PROVIDERS: ATTEND Obstetrics & Gynecology
DX: O99.280 Endocrine, nutritional and metabolic diseases complicating pregnancy, unspecified trimester (principal); E86.0 Dehydration; O26.899 Other specified pregnancy related conditions, unspecified trimester; R10.2 Pelvic and perineal pain
CPT/HCPCS: 99213

== ENCOUNTER 2018-11-05 05:37 | Outpatient (CLI) | payer MEDICAID ==
[~2018-11-05] VITALS: Ht 167.6 cm; Wt 98.0 kg
== END 2018-11-05 12:50 | disposition home or self-care (01) ==
LOC: PREOP 05:37
PROVIDERS: ATTEND Obstetrics & Gynecology
DX: Z01.818 Encounter for other preprocedural examination (principal)

== ENCOUNTER 2018-11-10 10:27 | Inpatient (IN) | payer MEDICAID ==
[~2018-11-10] VITALS: Ht 167.6 cm; Wt 98.9 kg
[2018-11-10] VITALS (14 sets, daily range): BP systolic 90–125; BP diastolic 57–77
--- NOTE | 2018-11-10 10:35 | NUR ---
DANAE TOVAR presented to unit via AMBULATION from HOME, accompanied by S/O, with c/o PREVIOUS. DANAE TOVAR weighed, gowned, voided, and to bed. EFHM and TOCO applied, VS taken. DANAE TOVAR oriented to bed controls, call light, TV, heat, and A/C controls.
[2018-11-10] MEDS ORDERED: CITRIC ACID/SOB CIT (BICITRA) 30 ML UDC ONE (10:44)
[2018-11-10] MEDS ORDERED: METOCLOPRAMIDE INJ 10 MG/2 ML (REGLAN) ONE (10:44)
[2018-11-10] MEDS ORDERED: FAMOTIDINE 20MG/2ML IV (PEPCID) ONE (10:44)
[2018-11-10] MEDS: LACTATED RINGERS 1,000 ML IV PRN ×2 (11:44→13:30)
[2018-11-10] MEDS ORDERED: LACTATED RINGERS 1,000 ML IV PRN (11:54)
[2018-11-10] MEDS ORDERED: METOCLOPRAMIDE INJ 10 MG/2 ML (REGLAN) IV ONE (12:00)
[2018-11-10] MEDS ORDERED: FAMOTIDINE 20MG/2ML IV (PEPCID) IV ONE (12:00)
[2018-11-10] MEDS ORDERED: CITRIC ACID/SOB CIT (BICITRA) 30 ML UDC PO ONE (12:00)
[2018-11-10] MEDS ORDERED: CLINDAMYCIN 600 MG/50 ML IVPB 50 ML IV ONE (12:00)
[2018-11-10] MEDS ORDERED: CATHETER FLUSH 10 ML SYR IV PRN (12:00)
[2018-11-10 12:03] LABS: BASOPHILS % (AUTO) 0 % (0-10); EOSINOPHILS # (AUTO) 0.1 10^3/uL (0.0-0.3); EOSINOPHILS % (AUTO) 1 % (0-10); HEMATOCRIT 31 % (35-52); HEMOGLOBIN 9.9 G/DL (11.5-16.0); LYMPHOCYTES # (AUTO) 1.6 X 10^3 (1.0-4.0); LYMPHOCYTES % (AUTO) 14 % (12-44); MEAN CORPUSCULAR HEMOGLOBIN 24 PG (25-34); MEAN CORPUSCULAR HGB CONC 32 G/DL (32-36); MEAN CORPUSCULAR VOLUME 74 FL (80-99); MEAN PLATELET VOLUME 11.2 FL (7.4-10.4); MONOCYTES # (AUTO) 0.9 X 10^3 (0.0-1.0); MONOCYTES % (AUTO) 8 % (0-12); NEUTROPHILS # (AUTO) 9.2 X 10^3 (1.8-7.8); NEUTROPHILS % (AUTO) 78 % (42-75); PLATELET COUNT 197 10^3/uL (130-400); RED CELL DISTRIBUTION WIDTH 16.3 % (10.0-14.5); WHITE BLOOD COUNT 11.8 10^3/uL (4.3-11.0)
[2018-11-10 12:04] LABS: BILIRUBIN,URINE NEGATIVE (NEGATIVE); CLARITY,URINE CLEAR; COLOR,URINE YELLOW; GLUCOSE, URINE (UA) NEGATIVE (NEGATIVE); KETONES,URINE NEGATIVE (NEGATIVE); LEUKOCYTE ESTERASE ,URINE 2+ (NEGATIVE); NITRITE,URINE NEGATIVE (NEGATIVE); PH,URINE 6.5 (5-9); PROTEIN,URINE 2+ (NEGATIVE); UROBILINOGEN,URINE 1 MG/DL (NORMAL)
[2018-11-10] MEDS ORDERED: fentaNYL INJECTION 100 MCG/2 ML AMP ONE (12:13)
[2018-11-10 12:15] LABS: BACTERIA,URINE FEW /HPF; SQUAMOUS EPITHELIAL CELL,UR 25-50 /HPF
[2018-11-10] MEDS ORDERED: OXYTOCIN/NORMAL SALINE 1,000 ML IV ONE (12:17)
--- NOTE | 2018-11-10 12:50 | Progress Note-Pre Operative ---
Pre-Operative Progress Note H&P Reviewed The H&P was reviewed, patient examined and no changes noted. Date Seen by Provider: November 10, 2018 Time Seen by Provider: 12:45 Date H&P Reviewed: November 10, 2018 Time H&P Reviewed: 12:00 Pre-Operative Diagnosis: Previous section DONLAD MURRY DO November 10, 2018 12:50
[2018-11-10] MEDS ORDERED: ROPIVACAINE 5MG/ML 30ML VIAL ONE (12:51)
[2018-11-10] MEDS ORDERED: OXYTOCIN/NORMAL SALINE 500 ML IV SCH (12:51)
[2018-11-10] MEDS ORDERED: MEASLES,MUMPS,RUBELLA 1 EA INJ SC SCH (13:00)
[2018-11-10] MEDS ORDERED: IBUPROFEN 600 MG (MOTRIN) TAB PO SCH (13:00)
[2018-11-10] MEDS ORDERED: TETANUS,DIPTH,PERTUSS P/F (BOOSTRIX) 0.5 ML VIAL IM SCH (13:00)
[2018-11-10] MEDS ORDERED: morphine INJ 4 MG/ML 1 ML (VIAL/SYRINGE) IVP PRN (13:00)
[2018-11-10] MEDS ORDERED: PHENYLEPHRINE 100 MCG/ML 10 ML (ANESTHESIA) SYR ONE (13:22)
[2018-11-10] MEDS ORDERED: ONDANSETRON 4 MG/2 ML (SDV) Z0FRAN ONE (13:22)
--- NOTE | 2018-11-10 13:55 | Cesarean Section Operative ---
Procedure Procedure Note Pre-operative Diagnosis: Marcelle bautista (28 /Para 6/3 , Gestational Age 39 weeks with history of previous section Post-operative Diagnosis: same [] Procedure: [] low transverse section Physician: DONALD MURRY Technology Services Manager: [] Estimated blood loss: [] mL Disposition: [] Findings: Viable male , Apgars 8/9, weight 8#12ounces, intact placenta, 3vc, normal appearing uterus, tubes, and ovaries. Indications:Marcelle bautista (28 /Para 6/3 ,Gestational Age (wks) presenting for []. Procedure Details: The patient was seen in pre-op and the procedure was discussed with the patient in full, including the risks, benefits, and alternatives. All questions were answered. The patient was taken to the operating room and a time out was performed, verifying patient and procedure. After spinal anesthesia was placed by our anesthesia colleagues, the patient was placed in the dorsal supine with leftward tilt for uterine displacement.~ Her abdomen was then prepped and draped in the typical sterile fashion. A Pfannensti el skin incision was made using a scalpel and carried down through the underlying fascia. The fascia was incised in the midline and tented up using Christine clamps. On both the inferior and superior fascia side the rectus muscle was dissected off bluntly and sharply using Orozco scissors. The peritoneum was identified and entered bluntly in the midline. This was then stretched laterally using manual strength. After entering the abdominal cavity and confirming lack of intraperitoneal adhesions, a large Leo retractor was placed and the lower uterine segment was visualized. A bladder flap was created with the use of Metzenbaum scissors.~ A scalpel was utilized to make a low transverse uterine incision. Amniotomy was performed with an Allis clamp with return of clear fluid. The infant's head was grasped and brought to the level of the incision. Fundal pressure was applied and infant was delivered without difficulty. Mouth and nares were suctioned with bulb suction. After the umbilical cord was clamped and cut, the was handed off to the pediatric staff. A sample of cord blood was then obtained. The placenta was delivered intact via uterine massage. The uterus was exteriorized and cleared of all clots and debris. The uterine incision was closed using 0 Vicryl in a running locked fashion. A second imbricated layer was placed using 0 Vicryl in a running fashion as well. The uterus was flexed forward and the posterior rectouterine space was inspected and cleared of all clots and debris. Again the hysterotomy site was examined and hemostasis was observed. The bilateral tubes and ovaries appeared normal. The uterus was placed back into the abdominal cavity and abdominal gutters were cleared of all clots and debris. A final check of the uterine incision showed it to be hemostatic. The peritoneum was closed using 3-0 Vicryl in a running fashion. The fascia was closed with 0 Vicryl in a running fashion. The subcutaneous space was hemostatic, and irrigated. The subcutaneous space was closed with 3-0 Vicryl in several single interrupted stitches. The skin was then closed using 4-0 Monocryl in a running subcuticular fashion. The skin edges were reapproximated together and were hemostatic. A pressure dressing was applied. All sponge, lap and needle counts were correct at the end of the procedure per nursing. Vitals - Labs Labs Laboratory Tests 11/10/18 11:10: White Blood Count 11.8H, Red Blood Count 4.17L, Hemoglobin 9.9L, Hematocrit 31L, Mean Corpuscular Volume 74L, Mean Corpuscular Hemoglobin 24L, Mean Corpuscular Hemoglobin Concent 32, Red Cell Distribution Width 16.3H, Platelet Count 197, Mean Platelet Volume 11.2H, Neutrophils (%) (Auto) 78H, Lymphocytes (%) (Auto) 14, Monocytes (%) (Auto) 8, Eosinophils (%) (Auto) 1, Basophils (%) (Auto) 0, Neutrophils # (Auto) 9.2H, Lymphocytes # (Auto) 1.6, Monocytes # (Auto) 0.9, Eosinophils # (Auto) 0.1, Basophils # (Auto) 0.0, Urine Color YELLOW, Urine Clarity CLEAR, Urine pH 6.5, Urine Specific [place] 1.020, Urine Protein 2+H, Urine Glucose (UA) NEGATIVE, Urine Ketones NEGATIVE, Urine Nitrite NEGATIVE, Urine Bilirubin NEGATIVE, Urine Urobilinogen 1, Urine Leukocyte Esterase 2+H, Urine RBC (Auto) NEGATIVE, Urine RBC NONE, Urine WBC 5-10H, Urine Squamous Epithelial Cells 25-50H, Urine Crystals NONE, Urine Bacteria FEWH, Urine Casts NONE, Urine Mucus SMALLH, Urine Culture Indicated YES DONALD MURRY DO November 10, 2018 13:55
[2018-11-10] MEDS ORDERED: HYDROmorphone 2 MG/ML VIAL (DILAUDID) IV ONE (14:30)
[2018-11-10] MEDS: KETOROLAC 30 MG/ML VIAL IV SCH ×2 (15:05→21:11)
--- NOTE | 2018-11-10 15:10 | NUR ---
PT TO ROOM VIA BED ACCOMPANIED BY PACU STAFF. RN TO BEDSIDE REPORT REC'D FROM Benson PASTOR RN. IV PITOCIN TO PUMP, SCD'S ON AND ACTIVATED, VS TAKEN, ICE WATER PROVIDED. FFU/2, LIGHT ISAEL BENTON NOTED NO CLOTS EXPRESSED. PT AND FAMILY ORIENTED TO ROOM AND CALL LIGHT, ROOM SERVICE, PLAN OF CARE. PT DENIES NEEDS OR CONCERNS AT THIS TIME.
[2018-11-10] MEDS: ONDANSETRON 4 MG/2 ML (SDV) Z0FRAN IVP PRN ×2 (15:53→17:58)
--- NOTE | 2018-11-10 18:40 | NUR ---
RN TO ROOM TO ANSWER CALL LIGHT, PT VOICES NEED TO VOID. PT ASSISTED TO STANDING POSITION AT SIDE OF BED, FRESH PAD AND PANTIES APPLIED. PT AMBULATES TO BATHROOM WITHOUT DIFFICULTY, +VOID, 200ML CLEAR, YELLOW URINE NOTED, ONE SMALL BLOOD CLOT NOTED IN HAT. PT AMBULATES BACK TO RECLINER.
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
[2018-11-10] MEDS: DOCUSATE SODIUM 100 MG (COLACE) CAP PO SCH (19:56)
[2018-11-10] MEDS: ACETAMINOPHEN 500 MG TAB (TYLENOL) PO SCH (19:57)
--- NOTE | 2018-11-10 20:30 | NUR ---
Pt back to PP room and infant at this time.
[2018-11-10] MEDS: CATHETER FLUSH 10 ML SYR IV SCH (21:11)
--- NOTE | 2018-11-11 | NUR ---
Infant out to pt to breastfeed.
[2018-11-11 01:00] VITALS: BP 111/58
[2018-11-11] MEDS: KETOROLAC 30 MG/ML VIAL IV SCH ×2 (04:20→19:31)
--- NOTE | 2018-11-11 04:20 | NUR ---
Pt aroused to take VS and routine meds. ready to BF.
[2018-11-11 04:21] VITALS: BP 129/71
[2018-11-11] MEDS: CATHETER FLUSH 10 ML SYR IV SCH (04:21)
[2018-11-11] MEDS: ACETAMINOPHEN 500 MG TAB (TYLENOL) PO SCH ×4 (04:21→19:34)
[2018-11-11 05:36] LABS: BASOPHILS % (AUTO) 0 % (0-10); EOSINOPHILS # (AUTO) 0.1 10^3/uL (0.0-0.3); EOSINOPHILS % (AUTO) 1 % (0-10); HEMATOCRIT 27 % (35-52); HEMOGLOBIN 8.5 G/DL (11.5-16.0); LYMPHOCYTES # (AUTO) 1.6 X 10^3 (1.0-4.0); LYMPHOCYTES % (AUTO) 12 % (12-44); MEAN CORPUSCULAR HEMOGLOBIN 24 PG (25-34); MEAN CORPUSCULAR HGB CONC 32 G/DL (32-36); MEAN CORPUSCULAR VOLUME 74 FL (80-99); MEAN PLATELET VOLUME 10.5 FL (7.4-10.4); MONOCYTES # (AUTO) 0.9 X 10^3 (0.0-1.0); MONOCYTES % (AUTO) 7 % (0-12); NEUTROPHILS # (AUTO) 10.5 X 10^3 (1.8-7.8); NEUTROPHILS % (AUTO) 79 % (42-75); PLATELET COUNT 211 10^3/uL (130-400); RED CELL DISTRIBUTION WIDTH 16.3 % (10.0-14.5); WHITE BLOOD COUNT 13.2 10^3/uL (4.3-11.0)
[2018-11-11 08:40] VITALS: BP 101/69
[2018-11-11] MEDS: DOCUSATE SODIUM 100 MG (COLACE) CAP PO SCH ×2 (08:40→19:34)
[2018-11-11] MEDS: IBUPROFEN 600 MG (MOTRIN) TAB PO SCH ×3 (10:10→22:00)
[2018-11-11 16:00] VITALS: BP 111/73
--- NOTE | 2018-11-11 19:37 | Anesthesia-Regional Post-Op ---
Regional Patient Condition Mental Status: Alert, Oriented x3 Circulation: Same as Pre-Op Headache: Absent Sensation: Full Recovery Motor Block: Absent Post Op Complications Complications None Follow Up Care/Instructions Patient Instructions None needed. Anesthesia/Patient Condition Patient is doing well, no complaints, stable vital signs, no apparent adverse anesthesia problems. No complications reported per nursing. MIKE FU CRNA November 11, 2018 19:37
[2018-11-11 22:00] VITALS: BP 107/67
[2018-11-12] MEDS: ACETAMINOPHEN 500 MG TAB (TYLENOL) PO SCH ×2 (02:30→09:03)
[2018-11-12 03:08] VITALS: BP 112/71
[2018-11-12] MEDS: IBUPROFEN 600 MG (MOTRIN) TAB PO SCH ×2 (03:08→09:04)
[2018-11-12] MEDS ORDERED: OXC5T PO (03:22)
[2018-11-12] MEDS ORDERED: DOCU100C37 PO (03:22)
[2018-11-12] MEDS ORDERED: IBUP-844 PO (03:22)
[2018-11-12] MEDS ORDERED: FERR-84 PO (03:22)
[2018-11-12] MEDS ORDERED: ACET-77 PO (03:22)
--- NOTE | 2018-11-12 03:24 | Discharge Inst-Women's Service ---
Discharge Inst-Women's Serv Depart Medication/Instructions New, Converted or Re-Newed RX: RX on Chart Final Diagnosis previous section antepartum and acute blood loss anemia Consults/Follow Up Additional Follow Up: Yes (1 week and [address] Granado) Activity Activity: Activity as Tolerated Driving Instructions: No Driving for 1 Week NO SMOKING: NO SMOKING Nothing Inside Vagina: No Douching, No [place], No Tampons Diet Discharge Diet: No Restrictions Symptoms to Report to : Bleeding Excessive, Pain Increased, Fever Over 101 Degrees F, Vaginal Bleeding Increase, Cramps in Feet or Legs, Vaginal Discharge Foul For Any Problems or Questions: Contact Your Physician Skin/Wound Care Infection Signs and Symptoms: Increased Redness, Foul Odor of Wound, Increased Drainage, Skin Itchy or Has a Rash, Increased Swelling, Temperature Above 101 F Operative Area Clean and Dry: Keep Incision Clean/Dry Stitches/Jordan/Dermabond: Dermabond Bathing Instructions: DONALD Christianson DO November 12, 2018 03:24
--- NOTE | 2018-11-12 03:26 | Postpartum Progress Note ---
Post Op Post-operative Day #1 s/p RLTCS Subjective: Patient is without complaints. Ambulating, voiding after holt removed. Tolerating a regular diet without nausea or vomiting. Normal lochia. Pain is well controlled with oral pain medications. Passing flatus. breast feeding Objective: Laboratory Tests Test 11/11/18 05:15 Range/Units White Blood Count 13.2 H 4.3-11.0 10^3/uL Red Blood Count 3.60 L 4.35-5.85 10^6/uL Hemoglobin 8.5 L 11.5-16.0 G/DL Hematocrit 27 L 35-52 % Mean Corpuscular Volume 74 L 80-99 FL Mean Corpuscular Hemoglobin 24 L 25-34 PG Mean Corpuscular Hemoglobin Concent 32 32-36 G/DL Red Cell Distribution Width 16.3 H 10.0-14.5 % Platelet Count 211 130-400 10^3/uL Mean Platelet Volume 10.5 H 7.4-10.4 FL Neutrophils (%) (Auto) 79 H 42-75 % Lymphocytes (%) (Auto) 12 12-44 % Monocytes (%) (Auto) 7 0-12 % Eosinophils (%) (Auto) 1 0-10 % Basophils (%) (Auto) 0 0-10 % Neutrophils # (Auto) 10.5 H 1.8-7.8 X 10^3 Lymphocytes # (Auto) 1.6 1.0-4.0 X 10^3 Monocytes # (Auto) 0.9 0.0-1.0 X 10^3 Eosinophils # (Auto) 0.1 0.0-0.3 10^3/uL Basophils # (Auto) 0.0 0.0-0.1 10^3/uL 11/11/18 11/11/18 11/12/18 16:00 22:00 03:08 Temp 98.8 98.0 98.2 Pulse 72 73 68 Resp 20 20 18 B/P (MAP) 111/73 (86) 107/67 (80) 112/71 (85) Pulse Ox 98 98 O2 Delivery Room Air Room Air Room Air 11/12/18 00:00 Intake Total 1300 ml Output Total 2050 ml Balance -750 ml Physical Exam: General - Alert and oriented, no apparent distress Abdomen - Soft, appropriately tender to palpation, non-distended, fundus firm at umbilicus Incision - clean, dry and intact; no erythema or induration, no drainage Extremities - no edema, negative Reyna's bilaterally Assessment: 1 post-operative day # 2 s/p, status post RLTCS Recovering well, hemodynamically stable 2. Acute blood loss anemia - on iron Plan: Routine post-operative care. Encourage breast feeding. Encourage ambulation. VTE prophylaxis: SCDs. Ferrous sulfate supplementation. Plan for discharge today Vitals - Labs Vital Signs - I&O Vital Signs Date Time Temp Pulse Resp B/P (MAP) Pulse Ox O2 Delivery O2 Flow Rate FiO2 11/12/18 03:08 98.2 68 18 112/71 (85) 98 Room Air 11/11/18 22:00 98.0 73 20 107/67 (80) 98 Room Air 11/11/18 16:00 98.8 72 20 111/73 (86) Room Air 11/11/18 08:40 98.5 72 20 101/69 (80) Room Air 11/11/18 04:21 98.6 72 18 129/71 (90) 99 Room Air I & O 11/12/18 07:00 Intake Total 1300 ml Output Total 2050 ml Balance -750 ml Labs Laboratory Tests 11/11/18 05:15: White Blood Count 13.2H, Red Blood Count 3.60L, Hemoglobin 8.5L, Hematocrit 27L, Mean Corpuscular Volume 74L, Mean Corpuscular Hemoglobin 24L, Mean Corpuscular Hemoglobin Concent 32, Red Cell Distribution Width 16.3H, Platelet Count 211, Mean Platelet Volume 10.5H, Neutrophils (%) (Auto) 79H, Lymphocytes (%) (Auto) 12, Monocytes (%) (Auto) 7, Eosinophils (%) (Auto) 1, Basophils (%) (Auto) 0, Neutrophils # (Auto) 10.5H, Lymphocytes # (Auto) 1.6, Monocytes # (Auto) 0.9, Eosinophils # (Auto) 0.1, Basophils # (Auto) 0.0 Microbiology 11/10/18 MRSA Screen - Final, Complete MRSA not isolated 11/10/18 Urine Culture - Final, Complete 3 or more isolates DONALD MURRY DO November 12, 2018 03:25
[2018-11-12] MEDS ORDERED: FERROUS SULF 325 MG (IRON) TAB PO SCH (07:00)
[2018-11-12] MEDS: DOCUSATE SODIUM 100 MG (COLACE) CAP PO SCH (09:04)
[2018-11-12 09:08] VITALS: BP 109/66
--- NOTE | 2018-11-12 09:08 | NUR ---
AM shift assessment completed and vital signs obtained, see interventions. Plan of care reviewed with patient both written and verbally. Patient verbalizes understanding and questions answered. Scheduled Iron, Colace, Motrin, and Tylenol PO given. Oxycodone 1 tab PO given for patient's c/o pain rated 8/10. Patient denies any further needs or concerns at this time.
--- NOTE | 2018-11-12 10:00 | NUR ---
Dr. Granado here to see patient. New orders received.
--- NOTE | 2018-11-12 12:39 | NUR ---
Discharge instructions and medications reviewed with patient both written and verbally. Patient verbalizes understanding and questions answered. Written prescription given to patient with the remaining having been electronically submitted patient's preferred pharmacy.
--- NOTE | 2018-11-12 15:00 | NUR ---
Patient discharged at this time via wheelchair and accompanied down to awaiting private vehicle by Onofre Moise RN. No signs or symptoms of distress noted.
== END 2018-11-12 15:00 | disposition home or self-care (01) | DRG 787 ==
LOC: LDRP 10:27 → WS 15:10
PROVIDERS: ADMIT Obstetrics & Gynecology; ATTEND Obstetrics & Gynecology
PROC: 10D00Z1 Extraction of Products of Conception, Low, Open Approach (ICD-10-PCS; principal; 2018-11-10 12:56)
DX: O34.211 Maternal care for low transverse scar from previous cesarean delivery (principal); O99.03 Anemia complicating the puerperium; D62 Acute posthemorrhagic anemia; Z3A.38 38 weeks gestation of pregnancy; Z37.0 Single live birth
CPT/HCPCS: 36415; 81000; 85025; 86850; 86900; 86901; 87081; 87088; 94664

== ENCOUNTER 2019-01-28 12:14 | Emergency (ER) | payer OTHER, MEDICAID ==
[~2019-01-28] VITALS: Ht 167.6 cm; Wt 83.0 kg
[~2019-01-28 12:14] MED LIST changes: +ACET-77 PO; +DOCU100C37 PO; +FERR-84 PO; +IBUP-844 PO; +OXC5T PO
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
[2019-01-28] MEDS ORDERED: CYCL5TAB PO (14:04)
[2019-01-28] MEDS ORDERED: NAPR-1071 PO (14:04)
[2019-01-28 14:30] VITALS: BP 106/68
--- NOTE | 2019-01-28 14:32 | Diagnostic Imaging Report ---
Pelvis and right hip at 12:58. Indication: Right hip pain. A single AP view of the pelvis and AP and lateral views of the right hip were obtained. There is no fracture or dislocation or acute bony abnormality evident. The hip and sacroiliac joints seem well-maintained and appear similar to the assistant professor of psychology film from the CT abdomen/pelvis exam of 12/22/2017. The soft tissues are unremarkable. Impression: There is no evidence for an acute bony abnormality. Dictated by: Dictated on workstation # [id number]
== END 2019-01-28 14:30 | disposition home or self-care (01) ==
LOC: ER 12:14 → EDUNIT# 12:14 → ER 14:30
DX: S70.01XA Contusion of right hip, initial encounter (principal); S70.11XA Contusion of right thigh, initial encounter; J45.909 Unspecified asthma, uncomplicated; G43.909 Migraine, unspecified, not intractable, without status migrainosus; F32.9 Major depressive disorder, single episode, unspecified; Z87.19 Personal history of other diseases of the digestive system; Z87.442 Personal history of urinary calculi; Z88.0 Allergy status to penicillin; Z88.8 Allergy status to other drugs, medicaments and biological substances; Z88.1 Allergy status to other antibiotic agents; Z77.22 Contact with and (suspected) exposure to environmental tobacco smoke (acute) (chronic); V47.5XXA Car driver injured in collision with fixed or stationary object in traffic accident, initial encounter

== ENCOUNTER 2019-05-26 05:31 | Outpatient (CLI) | payer MEDICAID ==
[~2019-05-26] VITALS: Ht 167.7 cm; Wt 84.1 kg
[~2019-05-26 05:31] MED LIST changes: +CYCL5TAB PO; +NAPR-1071 PO
[2019-06-03] MEDS ORDERED: AZIT200S47 PO (10:16)
[2019-06-03] MEDS ORDERED: DEXAINTSOL PO (10:16)
[2019-06-03] MEDS ORDERED: TETRACAINESUCKERS MT (10:16)
[2019-06-03] MEDS ORDERED: HYDR15SO8 PO (10:16)
== END 2019-05-26 09:38 | disposition home or self-care (01) ==
LOC: PREOP 05:31
PROVIDERS: ATTEND Otolaryngology Otolaryngology/Facial Plastic Surgery
DX: Z01.818 Encounter for other preprocedural examination (principal)

== ENCOUNTER 2019-06-25 19:22 | Outpatient (CLI) | payer MEDICAID ==
[~2019-06-25 19:22] MED LIST changes: +AZIT200S47 PO; +DEXAINTSOL PO; +HYDR15SO8 PO; +TETRACAINESUCKERS MT
== END 2019-06-26 06:09 | disposition home or self-care (01) ==
LOC: SLEEP 19:22
DX: G47.33 Obstructive sleep apnea (adult) (pediatric) (principal)
CPT/HCPCS: 95810

== ENCOUNTER 2019-07-29 18:19 | Emergency (ER) | payer MEDICAID ==
[~2019-07-29] VITALS: Ht 167 cm; Wt 72.0 kg
[~2019-07-29 18:19] MED LIST changes: -ACET-77 PO; +ACET-78 PO
--- NOTE | 2019-07-29 19:22 | ED Headache ---
General Chief Complaint: Eye Problems Stated Complaint: EYE PAIN Nursing Triage Note: patient states eye pain, vision blurry, pain moving side to side, to blink. Nursing Sepsis Screen: No Definite Risk Source: patient, other Exam Limitations: no limitations History of Present Illness Date Seen by Provider: Jul 29, 2019 Time Seen by Provider: 19:06 Initial Comments The patient presents to ER by private conveyance from home with chief complaint of headache for the past couple days centered behind her eyes bilaterally non- throbbing the photosensitivity. She has a history of migraines similar to this but not as bad as this because she is experiencing body aches and chills but no objective fever. She's not having any nausea but sometimes when she coughs a lot she will almost vomit. She says she gets migraine headaches about twice a month but is not on any prophylactic medications. She typically uses aspirin and Tylenol and this takes care of it but the last 2 days it has not helped. Her daughter has a cold. She has not had a flu vaccine herself. She does have a mild sore throat and has a history of tonsillectomy a few months ago by Dr. Moreira, ENT. She has a history of lots of strep infections. She has a history of Asthma but does not use her albuterol inhaler. She has not felt wheezy or tight recentl y. Since moving here she has not obtained a nebulizer. She follows with Kenny Rush at [facility]. She has On in her left arm. She also has a history of PCO S. Allergies and Home Medications Allergies Coded Allergies: Penicillins (Unverified Allergy, Severe, ANAPHYLAXIS, 12/30/17) aripiprazole (Unverified Allergy, Mild, HIVES, 12/30/17) cephalexin (Verified Allergy, Unknown, RASH, 05/25/18) walnut (Verified Allergy, Unknown, 11/11/18) Home Medications Azithromycin 200 Mg/5 Ml Susp.recon, 1 TSP PO DAILY Prescribed by: FERMIN WOODWARD on 06/03/19 1016 Dexamethasone 1 Mg/1 Ml Tita, 2 TSP PO DAILY Mix 4MG/2.5CC water Prescribed by: FERMIN WOODWARD on 06/03/19 1016 Hydrocodone/Acetaminophen 15 Ml Solution, 2-2.5 TSP PO Q4H PRN for PAIN-MODERATE (5-7) 8 OZ BOTTLE Prescribed by: FERMIN WOODWARD on 06/03/19 1016 Vit No.124/Iron/FA 1 Each Tablet, 1 EACH PO DAILY, (Reported) Tetracaine Sucker Ea, 1 EA MT UD PRN for PAIN Tetracain Suckers These suckers are custom made and require a prescription. Moisten the sucker first and then suck on it gently as far back in the mouth as possible for 2-3 days. You can repeadt it in about an hour. This will take the edge off but not completely numb the throat. Prescribed by: FERMIN WOODWARD on 06/03/19 1016 Patient Home Medication List Home Medication List Reviewed: Yes Review of Systems Review of Systems Constitutional: chills, diaphoresis, fever, malaise Eyes: Denies Blindness, Denies Blurred Vision; Pain Ears, Nose, Mouth, Throat: denies ear pain, denies ear discharge Respiratory: cough; No phlegm, No short of breath, No wheezing Cardiovascular: chest pain (Generalized body aches); No edema Gastrointestinal: No abdominal pain, No constipation, No diarrhea, No nausea, No vomiting Genitourinary: No discharge, No dysuria Musculoskeletal: see HPI (All over body aches), back pain, joint pain Skin: No pruritus, No rash Psychiatric/Neurological: Denies Anxiety, Denies Depressed All Other Systems Reviewed Negative Unless Noted: Yes Past Bhnlxov-Akyivi-Afluwz Hx Patient Social History Alcohol Beverage of Choice: Wine Type Used: Electronic/Vapor Former Smoker, Quit: Jun 22, 2011 2nd Hand Smoke Exposure: No Recent Foreign Travel: No Contact w/Someone Who Travel: No Recent Infectious Disease Expo: No Recent Hopitalizations: No Immunizations Up To Date Tetanus Booster (TDap): Unknown PED Vaccines UTD: No Date of Influenza Vaccine: Feb 20, 2019 Seasonal Allergies Seasonal Allergies: Yes Past Medical History Surgeries: Yes (c/s x3, multiple eye sx, hip sx, lithrotripsy, ) Section, Eye Surgery, Gallbladder, Orthopedic Respiratory: Yes Asthma Cardiac: No Neurological: Yes Headaches /Migraines Reproductive Disorders: Yes Female Reproductive Disorders: Polycystic Ovarian Dis Sexually Transmitted Disease: No HIV/AIDS: No Genitourinary: Yes (S/P LITHOTRIPSY) Bladder Infection, Kidney Stones Gastrointestinal: Yes (S/P MARLENI) Chronic Constipation Musculoskeletal: Yes (HIPS) Arthritis Endocrine: No HEENT: Yes Loss of Vision: Bilateral Hearing Impairment: Denies Cancer: No Psychosocial: Yes Depression Integumentary: Yes Eczema Blood Disorders: No Adverse Reaction/Blood Tranf: No (N/A) Family Medical History Patient reports no known family medical history. Physical Exam Vital Signs Vital Signs - First Documented 07/29/19 18:52 Temp 36.5 Pulse 98 Resp 18 B/P (MAP) 108/71 (83) Pulse Ox 98 O2 Delivery Room Air Capillary Refill : Less Than 3 Seconds Height, Weight, BMI Height: 5'6.00" Weight: 183lbs. 0.0oz. 83.719421jj; 25.00 BMI Method:Stated General Appearance: WD/WN, mild distress HEENT: PERRL/EOMI, TMs normal, pharyngeal erythema; No tonsillar exudate Neck: non-tender, full range of motion, supple, normal inspection Cardiovascular: normal peripheral pulses, regular rate, rhythm Respiratory: chest non-tender, lungs clear, normal breath sounds, no respiratory distress, no accessory muscle use Extremities: normal range of motion, non-tender, normal inspection, no pedal edema, normal capillary refill Psychiatric: alert, oriented x 3 Crainal Nerves: normal hearing, normal speech Skin: normal color, warm/dry Progress/Results/Core Measures Results/Orders Lab Results Laboratory Tests Test 07/29/19 19:12 07/29/19 19:19 Range/Units Group A Streptococcus Screen NEGATIVE NEGATIVE Urine Color YELLOW Urine Clarity CLEAR Urine pH 5.5 5-9 Urine Specific [place] >=1.030 1.016-1.022 Urine Protein TRACE H NEGATIVE Urine Glucose (UA) NEGATIVE NEGATIVE Urine Ketones NEGATIVE NEGATIVE Urine Nitrite NEGATIVE NEGATIVE Urine Bilirubin NEGATIVE NEGATIVE Urine Urobilinogen 0.2 < = 1.0 MG/DL Urine Leukocyte Esterase NEGATIVE NEGATIVE Urine RBC (Auto) NEGATIVE NEGATIVE Micro Results Microbiology 07/29/19 Influenza Types A,B Antigen (ALESSIA) - Final, Complete My Orders Orders - CHELITA LITTLE Urinalysis Dipstick Only (07/29/19 19:15) Urine Bedside (07/29/19 19:15) Influenza A And B Antigens (07/29/19 19:15) Rapid Strep A Screen (07/29/19 19:15) Ketorolac Injection (Toradol Injection) (07/29/19 19:45) Medications Given in ED Current Medications Medications Dose Ordered Sig/Denia Route Start Time Stop Time Status Last Admin Dose Admin Ketorolac Tromethamine 60 mg ONCE ONCE IM 07/29/19 19:45 07/29/19 19:46 DC 07/29/19 19:50 60 MG Vital Signs/I&O 07/29/19 18:52 Temp 36.5 Pulse 98 Resp 18 B/P (MAP) 108/71 (83) Pulse Ox 98 O2 Delivery Room Air Blood Pressure Mean: 83 Progress Progress Note : Time: 19:21 Progress Note The patient is febrile, tachycardic around 110 and has all over body aches and a headache unresponsive to nvfn-yeg-masiawc analgesics not including NSAIDs that she has not tried yet. The plan would be to get a urine test and if that's negative give her some Toradol for her body aches and headache. We have offered Compazine and Phenergan and at this time she has declined. I suspect she has influenza. We'll get a rapid strep screen since she has requested and has a long-standing history of strep throat. Her complaint of chest pain builds with the rest of her body aches and she does not seem to have any bronchospasm, pneumothorax or other worrisome findings to explain her chest take any more than the rest of her body aches. She has good oxygenation at 97-100% on room air and nonlabored breathing. Departure Impression Primary Impression: Influenza B Disposition: 01 HOME, SELF-CARE Condition: Stable Departure-Patient Inst. Decision time for Depature: 20:06 Referrals: [facility] (PCP) Primary Care Physician ANGELIA MURRY (Family) Primary Care Physician Patient Instructions: Flu, Adult (DC) Add. Discharge Instructions: Expect to be sick for one to 2 weeks. Drink lots of fluids. Humidifiers and vapor rubs may help with congestion. Tylenol 1000 mg every 8 hours as needed for pain. Ibuprofen 800 mg every 8 hours as needed for pain. Tessalon Perles as a prescription cough medicine that will not cause drowsiness and can be taken every 6 hours as needed for reducing cough. If started in the first 24-48 hours then Tamiflu may help reduce the length of time and severity of influenza. 1 x 75 mg capsule twice a day for a total of 5 days. Hand foreign banknote teller trader's, handwashing and surface disinfectants such as Lysol for around the house. Return to school and work after symptoms have abated and you are fever free for 24 hours without the use of Tylenol, ibuprofen etc. All discharge instructions reviewed with patient and/or family. Voiced understanding. Scripts Benzonatate (TESSALON PERLES) 100 Mg Capsule 100 MG PO Q6H PRN for COUGH, #30 CAP 0 Refills Prov: CHELITA LITTLE 07/29/19 Oseltamivir Phosphate (Tamiflu) 75 Mg Cap 75 MG PO BID for 5 Days, #10 CAP 0 Refills Prov: CHELITA LITTLE 07/29/19 Work/School Note: Work Release Form Date Seen in the Emergency Department: Jul 29, 2019 Return to Work: Aug 12, 2019 Restrictions: Return-No Fever (24hrs) CHELITA LITTLE Jul 29, 2019 19:22
[2019-07-29] MEDS ORDERED: KETOROLAC 60 MG/2 ML VIAL IM ONE (19:45)
[2019-07-29 19:48] LABS: BILIRUBIN,URINE NEGATIVE (NEGATIVE); CLARITY,URINE CLEAR; COLOR,URINE YELLOW; GLUCOSE, URINE (UA) NEGATIVE (NEGATIVE); KETONES,URINE NEGATIVE (NEGATIVE); LEUKOCYTE ESTERASE ,URINE NEGATIVE (NEGATIVE); NITRITE,URINE NEGATIVE (NEGATIVE); PH,URINE 5.5 (5-9); PROTEIN,URINE TRACE (NEGATIVE)
[2019-07-29] MEDS ORDERED: BENZ100C18 PO (20:09)
[2019-07-29] MEDS ORDERED: OSLT75C PO (20:09)
[2019-07-29 20:15] VITALS: BP 108/71
== END 2019-07-29 20:18 | disposition home or self-care (01) ==
LOC: EDUNIT# 18:19 → ER 18:20
DX: J10.1 Influenza due to other identified influenza virus with other respiratory manifestations (principal); J45.909 Unspecified asthma, uncomplicated; Z91.14 Patient's other noncompliance with medication regimen; Z88.0 Allergy status to penicillin; Z88.1 Allergy status to other antibiotic agents; Z88.8 Allergy status to other drugs, medicaments and biological substances; Z87.891 Personal history of nicotine dependence
CPT/HCPCS: 81002; 84703; 87430; 87804

== ENCOUNTER 2019-08-10 19:41 | Outpatient (CLI) | payer MEDICAID ==
[~2019-08-10 19:41] MED LIST changes: +ACHYD1T PO; +BENZ100C18 PO; -HYDR-3820 PO; +OSLT75C PO
== END 2019-08-11 13:30 | disposition home or self-care (01) ==
LOC: SLEEP 19:41
PROVIDERS: ATTEND Nurse Practitioner
DX: G47.33 Obstructive sleep apnea (adult) (pediatric) (principal); G47.10 Hypersomnia, unspecified
CPT/HCPCS: 95805; 95810

== ENCOUNTER → 2019-09-08 | Outpatient (CLI) | payer MEDICAID ==
[~2019-09-08] MED LIST changes: +CATHETER FLUSH 10 ML SYR IV PRN; +HOLD METFORMIN - RECEIVED CONTRAST 20 ML VIAL IV SCH; +IOHEXOL 350 MG/ML 100 ML (OMNIPAQUE 350) VIAL IV ONE; +NS 100 ML (IVPB) BAG IV ONE
--- NOTE | 2019-09-08 13:05 | Diagnostic Imaging Report ---
PROCEDURE: CT abdomen and pelvis with contrast, rule out appendicitis. TECHNIQUE: Multiple contiguous axial images were obtained through the abdomen and pelvis after the administration of intravenous contrast. All CT scans use one or more of the following dose optimizing techniques: automated exposure control, MA and/or KvP adjustment based on a patient size and exam type, or iterative reconstruction. INDICATION: Diarrhea and vomiting for two days as well as right-sided abdominal pain. COMPARISON: Correlation is made with prior CT from 12/22/2017. FINDINGS: The lung bases are clear. The liver is unremarkable. The gallbladder is surgically absent. No biliary ductal dilatation is seen. The pancreas and spleen are unremarkable. No adrenal mass is detected. Tiny nonobstructing calculi in the lower pole of the right kidney are again noted. Aorta is nonaneurysmal. The small and large bowel loops appear to be normal in caliber. There is no evidence of obstruction. The appendix is visualized in the right lower quadrant. Appendix is minimally prominent but no periappendiceal inflammation is detected to suggest acute appendicitis. No free fluid or fluid collection is seen. The uterus and ovaries are unremarkable. Bladder is unremarkable. No definite inflammatory changes are seen. There are numerous vascular structures in the parauterine location in the pelvis, perhaps owing to pelvic congestion. IMPRESSION: 1. Tiny nonobstructing right renal calculi. No definite hydronephrosis is seen. 2. Mildly prominent appendix but no periappendiceal inflammation is seen to suggest acute appendicitis. Dictated by: Dictated on workstation # [id number]
== END ==
LOC: RAD 11:59
PROVIDERS: ATTEND Nurse Practitioner Community Health
DX: N20.0 Calculus of kidney (principal); R10.31 Right lower quadrant pain
CPT/HCPCS: 74177

== ENCOUNTER 2019-12-19 11:38 | Emergency (ER) | payer MEDICAID ==
[~2019-12-19] VITALS: Ht 168 cm; Wt 72.0 kg
[~2019-12-19 11:38] MED LIST changes: -CATHETER FLUSH 10 ML SYR IV PRN; -HOLD METFORMIN - RECEIVED CONTRAST 20 ML VIAL IV SCH; -IOHEXOL 350 MG/ML 100 ML (OMNIPAQUE 350) VIAL IV ONE; -NS 100 ML (IVPB) BAG IV ONE
--- NOTE | 2019-12-19 12:05 | ED GU-Female ---
General Chief Complaint: Female Reproductive Stated Complaint: VAGINAL BLEEDING/CLOTTING Nursing Triage Note: PT STATES HEAVY VAG BLEEDING, GOING THROUGH A PAD ABOUT EVERY 15-20 MIN SINCE YESTERDAY. PT RECENTLY HAD CONTROL IMPLANT IN HER LT ARM TAKEN OUT AND BLEEDING WAS TO BE EXPECTED BUT NOT THIS MUCH. Nursing Sepsis Screen: No Definite Risk Source: patient Exam Limitations: no limitations History of Present Illness Date Seen by Provider: Dec 19, 2019 Time Seen by Provider: 11:50 Initial Comments 29-year-old female who presents to the emergency room with complaints of heavy vaginal bleeding. She reports that she is going through a pad about every 15-20 minutes started yesterday. She reports that she had her Implanon taken out last month and this is her first menstrual cycle off of any control. She reports that she called her doctor was instructed to come to the emergency room due to the amount of bleeding she is having. She reports that her and her are trying to conceive and this is why she stopped the control. S he denies any pain. Timing/Duration: yesterday Associated Symptoms: denies symptoms Allergies and Home Medications Allergies Coded Allergies: Penicillins (Unverified Allergy, Severe, ANAPHYLAXIS, 12/30/17) aripiprazole (Unverified Allergy, Mild, HIVES, 12/30/17) cephalexin (Verified Allergy, Unknown, RASH, 05/25/18) walnut (Verified Allergy, Unknown, 11/11/18) Home Medications Azithromycin 200 Mg/5 Ml Susp.recon, 1 TSP PO DAILY Prescribed by: FERMIN WOODWARD on 06/03/19 1016 Benzonatate 100 Mg Capsule, 100 MG PO Q6H PRN for COUGH Prescribed by: CHELITA LITTLE on 07/29/192008 Dexamethasone 1 Mg/1 Ml Tita, 2 TSP PO DAILY Mix 4MG/2.5CC water Prescribed by: FERMNI WOODWARD on 06/03/19 1016 Hydrocodone/Acetaminophen 15 Ml Solution, 2-2.5 TSP PO Q4H PRN for PAIN-MODERATE (5-7) 8 OZ BOTTLE Prescribed by: FERMIN WOODWARD on 06/03/19 1016 Oseltamivir Phosphate 75 Mg Cap, 75 MG PO BID Prescribed by: CHELITA LITTLE on 07/29/192008 Vit No.124/Iron/FA 1 Each Tablet, 1 EACH PO DAILY, (Reported) Tetracaine Sucker Ea, 1 EA MT UD PRN for PAIN Tetracain Suckers These suckers are custom made and require a prescription. Moisten the sucker first and then suck on it gently as far back in the mouth as possible for 2-3 days. You can repeadt it in about an hour. This will take the edge off but not completely numb the throat. Prescribed by: FERMIN WOODWARD on 06/03/19 1016 Past Syneufq-Lgrrzr-Xkdksk Hx Patient Social History Alcohol Use: Rarely Uses Number of Drinks Today: Alcohol Beverage of Choice: Beer, Wine Recreational Drug Use: No Smoking Status: Former Smoker Type Used: Electronic/Vapor Former Smoker, Quit: Jun 22, 2011 2nd Hand Smoke Exposure: No Recent Foreign Travel: No Contact w/Someone Who Travel: No Recent Infectious Disease Expo: No Recent Hopitalizations: No Physical Abuse: No Sexual Abuse: No Mistreated: No Fear: No Immunizations Up To Date Tetanus Booster (TDap): Unknown PED Vaccines UTD: No Date of Influenza Vaccine: Feb 20, 2019 Seasonal Allergies Seasonal Allergies: Yes Past Medical History Surgeries: Yes (c/s x3, multiple eye sx, hip sx, lithrotripsy, ) Section, Eye Surgery, Gallbladder, Orthopedic Respiratory: Yes Asthma Cardiac: No Neurological: Yes Headaches /Migraines : No Reproductive Disorders: Yes Female Reproductive Disorders: Polycystic Ovarian Dis Sexually Transmitted Disease: No HIV/AIDS: No Genitourinary: Yes (S/P LITHOTRIPSY) Bladder Infection, Kidney Stones Gastrointestinal: Yes (S/P MARLENI) Chronic Constipation Musculoskeletal: Yes (HIPS) Arthritis Endocrine: No HEENT: Yes Loss of Vision: Bilateral Hearing Impairment: Denies Cancer: No Psychosocial: Yes Depression Integumentary: Yes Eczema Blood Disorders: No Adverse Reaction/Blood Tranf: No (N/A) Family Medical History Patient reports no known family medical history. Physical Exam Vital Signs Vital Signs - First Documented 12/19/19 11:43 Temp 36.8 Pulse 86 Resp 18 B/P (MAP) 123/80 (94) Pulse Ox 99 O2 Delivery Room Air Capillary Refill : Less Than 3 Seconds Height, Weight, BMI Height: 5'6.00" Weight: 183lbs. 0.0oz. [id number]; 25.00 BMI Method:Stated Progress/Results/Core Measures Suspected Sepsis Recent Fever Within 48 Hours: No Infection Criteria Present: None New/Unexplained Altered Menta: No Sepsis Screen: No Definite Risk SIRS Temperature: Pulse: 86 Respiratory Rate: 18 Laboratory Tests 12/19/19 11:55: White Blood Count 5.7 Blood Pressure 123 /80 Mean: 94 Laboratory Tests 12/19/19 11:55: Creatinine 0.73, Platelet Count 192, Total Bilirubin 0.5 Results/Orders Lab Results Laboratory Tests Test 12/19/19 11:55 12/19/19 12:00 Range/Units White Blood Count 5.7 4.3-11.0 10^3/uL Red Blood Count 5.12 4.35-5.85 10^6/uL Hemoglobin 14.0 11.5-16.0 G/DL Hematocrit 42 35-52 % Mean Corpuscular Volume 82 80-99 FL Mean Corpuscular Hemoglobin 27 25-34 PG Mean Corpuscular Hemoglobin Concent 34 32-36 G/DL Red Cell Distribution Width 14.1 10.0-14.5 % Platelet Count 192 130-400 10^3/uL Mean Platelet Volume 11.9 H 7.4-10.4 FL Neutrophils (%) (Auto) 61 42-75 % Lymphocytes (%) (Auto) 29 12-44 % Monocytes (%) (Auto) 7 0-12 % Eosinophils (%) (Auto) 2 0-10 % Basophils (%) (Auto) 0 0-10 % Neutrophils # (Auto) 3.5 1.8-7.8 X 10^3 Lymphocytes # (Auto) 1.7 1.0-4.0 X 10^3 Monocytes # (Auto) 0.4 0.0-1.0 X 10^3 Eosinophils # (Auto) 0.1 0.0-0.3 10^3/uL Basophils # (Auto) 0.0 0.0-0.1 10^3/uL Sodium Level 139 135-145 MMOL/L Potassium Level 3.5 L 3.6-5.0 MMOL/L Chloride Level 107 98-107 MMOL/L Carbon Dioxide Level 22 21-32 MMOL/L Anion Gap 10 5-14 MMOL/L Blood Urea Nitrogen 7 7-18 MG/DL Creatinine 0.73 0.60-1.30 MG/DL Estimat Glomerular Filtration Rate > 60 BUN/Creatinine Ratio 10 Glucose Level 82 70-105 MG/DL Calcium Level 9.4 8.5-10.1 MG/DL Corrected Calcium 9.0 8.5-10.1 MG/DL Total Bilirubin 0.5 0.1-1.0 MG/DL Aspartate Amino Transf (AST/SGOT) 14 5-34 U/L Alanine Aminotransferase (ALT/SGPT) 16 0-55 U/L Alkaline Phosphatase 83 40-136 U/L Total Protein 7.7 6.4-8.2 GM/DL Albumin 4.5 3.2-4.5 GM/DL Urine Color RED H Urine Clarity CLEAR Urine pH 5.0 5-9 Urine Specific [place] 1.025 H 1.016-1.022 Urine Protein 3+ H NEGATIVE Urine Glucose (UA) NEGATIVE NEGATIVE Urine Ketones TRACE H NEGATIVE Urine Nitrite POSITIVE H NEGATIVE Urine Bilirubin NEGATIVE NEGATIVE Urine Urobilinogen 1.0 < = 1.0 MG/DL Urine Leukocyte Esterase 1+ H NEGATIVE Urine RBC (Auto) 3+ H NEGATIVE Urine RBC TNTC H /HPF Urine WBC 2-5 /HPF Urine Crystals NONE /LPF Urine Bacteria MODERATE H /HPF Urine Casts NONE /LPF Urine Mucus NEGATIVE /LPF Urine Culture Indicated YES Urine Test NEGATIVE NEGATIVE My Orders Orders - BRIANNA GILLIAM Cbc With Automated Diff (12/19/19 11:43) Ed Iv/Invasive Line Start (12/19/19 11:43) Comprehensive Metabolic Panel (12/19/19 11:43) Ua Culture If Indicated (12/19/19 11:43) Hcg,Qualitative Urine (12/19/19 11:43) Urine Culture (12/19/19 12:00) Vital Signs/I&O 12/19/19 11:43 Temp 36.8 Pulse 86 Resp 18 B/P (MAP) 123/80 (94) Pulse Ox 99 O2 Delivery Room Air Capillary Refill : Less Than 3 Seconds Blood Pressure Mean: 94 Departure Impression Primary Impression: UTI (urinary tract infection) Additional Impression: Irregular menstrual bleeding Disposition: 01 HOME, SELF-CARE Condition: Stable/Unchanged Departure-Patient Inst. Decision time for Depature: 13:09 Referrals: [facility]/NEHA (PCP) Primary Care Physician ANGELIA MURRY (Family) Primary Care Physician Patient Instructions: IRREGULAR VAGINAL BLEEDING, Urinary Tract Infection, Adult (DC) Add. Discharge Instructions: Take medication as prescribed. Drink plenty of fluids. Follow up with Dr. Joseph this week for a recheck. Return back to the emergency room if your symptoms worsen. All discharge instructions reviewed with patient and/or family. Voiced understanding. Scripts Nitrofurantoin Monohyd/M-Cryst (Macrobid 100 mg Capsule) 100 Mg Capsule 1 TAB PO BID for 5 Days, #10 TAB Prov: BRIANNA GILLIAM 12/19/19 BRIANNA GILLIAM Dec 19, 2019 12:05
[2019-12-19 12:06] LABS: BASOPHILS % (AUTO) 0 % (0-10); EOSINOPHILS # (AUTO) 0.1 10^3/uL (0.0-0.3); EOSINOPHILS % (AUTO) 2 % (0-10); HEMATOCRIT 42 % (35-52); LYMPHOCYTES # (AUTO) 1.7 X 10^3 (1.0-4.0); LYMPHOCYTES % (AUTO) 29 % (12-44); MEAN CORPUSCULAR HEMOGLOBIN 27 PG (25-34); MEAN CORPUSCULAR HGB CONC 34 G/DL (32-36); MEAN CORPUSCULAR VOLUME 82 FL (80-99); MEAN PLATELET VOLUME 11.9 FL (7.4-10.4); MONOCYTES # (AUTO) 0.4 X 10^3 (0.0-1.0); MONOCYTES % (AUTO) 7 % (0-12); NEUTROPHILS # (AUTO) 3.5 X 10^3 (1.8-7.8); NEUTROPHILS % (AUTO) 61 % (42-75); PLATELET COUNT 192 10^3/uL (130-400); RED CELL DISTRIBUTION WIDTH 14.1 % (10.0-14.5); WHITE BLOOD COUNT 5.7 10^3/uL (4.3-11.0)
[2019-12-19 12:09] LABS: BILIRUBIN,URINE NEGATIVE (NEGATIVE); CLARITY,URINE CLEAR; COLOR,URINE RED; GLUCOSE, URINE (UA) NEGATIVE (NEGATIVE); KETONES,URINE TRACE (NEGATIVE); LEUKOCYTE ESTERASE ,URINE 1+ (NEGATIVE); NITRITE,URINE POSITIVE (NEGATIVE); PROTEIN,URINE 3+ (NEGATIVE)
[2019-12-19 12:15] LABS: ALBUMIN 4.5 GM/DL (3.2-4.5)
[2019-12-19 12:16] LABS: CHLORIDE 107 MMOL/L (98-107); POTASSIUM 3.5 MMOL/L (3.6-5.0); SODIUM 139 MMOL/L (135-145)
[2019-12-19 12:17] LABS: CALCIUM 9.4 MG/DL (8.5-10.1)
[2019-12-19 12:18] LABS: GLUCOSE 82 MG/DL (70-105); TOTAL PROTEIN 7.7 GM/DL (6.4-8.2)
[2019-12-19 12:19] LABS: CARBON DIOXIDE 22 MMOL/L (21-32)
[2019-12-19 12:20] LABS: BILIRUBIN,TOTAL 0.5 MG/DL (0.1-1.0)
[2019-12-19 12:21] LABS: BACTERIA,URINE MODERATE /HPF; RBC,URINE TNTC /HPF
[2019-12-19 12:21] LABS: ALKALINE PHOSPHATASE 83 U/L (40-136); CREATININE SERUM 0.73 MG/DL (0.60-1.30); GFR ESTIMATED > 60
[2019-12-19 12:23] LABS: BUN/CREATININE RATIO 10
[2019-12-19 12:24] LABS: ALANINE AMINOTRANSFERASE 16 U/L (0-55)
[2019-12-19] MEDS ORDERED: NITR-65 PO (13:23)
[2019-12-19 13:35] VITALS: BP 115/76
== END 2019-12-19 13:34 | disposition home or self-care (01) ==
LOC: EDUNIT# 11:38 → ER 11:39
DX: N92.5 Other specified irregular menstruation (principal); N39.0 Urinary tract infection, site not specified; J45.909 Unspecified asthma, uncomplicated; G43.909 Migraine, unspecified, not intractable, without status migrainosus; K59.09 Other constipation; E28.2 Polycystic ovarian syndrome; F32.9 Major depressive disorder, single episode, unspecified; M19.90 Unspecified osteoarthritis, unspecified site; L30.9 Dermatitis, unspecified; Z87.891 Personal history of nicotine dependence; Z88.0 Allergy status to penicillin; Z88.1 Allergy status to other antibiotic agents; Z88.8 Allergy status to other drugs, medicaments and biological substances
CPT/HCPCS: 36415; 80053; 81000; 84703; 85025; 87088

== ENCOUNTER 2020-05-01 12:01 | Emergency (ER) | payer MEDICAID ==
[~2020-05-01] VITALS: Ht 167.7 cm; Wt 72.5 kg
--- NOTE | 2020-05-01 12:42 | ED General ---
General Chief Complaint: Skin/Wound Problems Stated Complaint: LUMP ON NECK Nursing Triage Note: Pt reports small lump began on R side of thyroid gland several months ago. Pt reports over the last week the lump has grown larger, and lump has significantly increased in size over night. Pt reports area is painful to the touch. Pt reports lump is affecting mobility with neck and causing difficulty breathing and causing pt to become light headed. Pt sees Kenny Rush but was referred to ED. Nursing Sepsis Screen: No Definite Risk Source of Information: Patient Exam Limitations: No Limitations (RENATE DIETZ MD) History of Present Illness Date Seen by Provider: May 01, 2020 Time Seen by Provider: 12:26 Initial Comments Here with enlarging swelling to the right side of the neck that is red and inflamed. She is worried about an abscess. States that it started about 2 months ago and has increased in size since. Now it hurts whenever she turns her head and causes her to feel dizzy and even short of breath if she turns the righ t direction. Denies other lumps or swelling. Denies ever having anything like this before. She did try to get into her PCP but he did not have appointments for 3 weeks. He recommended that she come to the ER due to the increasing size and placement. Timing/Duration: Getting Worse, Other (2 months) Severity: Moderate Associated Systoms: No Chest Pain, No Cough, No Fever/Chills, No Nausea/Vomiting; Shortness of Air (RENATE DIETZ MD) Allergies and Home Medications Allergies Coded Allergies: Penicillins (Unverified Allergy, Severe, ANAPHYLAXIS, 12/30/17) aripiprazole (Unverified Allergy, Mild, HIVES, 12/30/17) cephalexin (Verified Allergy, Unknown, RASH, 05/25/18) walnut (Verified Allergy, Unknown, 11/11/18) Home Medications Azithromycin 200 Mg/5 Ml Susp.recon, 1 TSP PO DAILY Prescribed by: FERMIN WOODWARD on 06/03/19 1016 Benzonatate 100 Mg Capsule, 100 MG PO Q6H PRN for COUGH Prescribed by: CHELITA LITTLE on 07/29/192008 Dexamethasone 1 Mg/1 Ml Tita, 2 TSP PO DAILY Mix 4MG/2.5CC water Prescribed by: FERMIN WOODWARD on 06/03/19 1016 Hydrocodone/Acetaminophen 15 Ml Solution, 2-2.5 TSP PO Q4H PRN for PAIN-MODERATE (5-7) 8 OZ BOTTLE Prescribed by: FERMIN WOODWARD on 06/03/19 1016 Nitrofurantoin Monohyd/M-Cryst 100 Mg Capsule, 1 TAB PO BID Prescribed by: BRIANNA GILLIAM on 12/19/19 1323 Oseltamivir Phosphate 75 Mg Cap, 75 MG PO BID Prescribed by: CHELITA LITTLE on 07/29/192008 Vit No.124/Iron/FA 1 Each Tablet, 1 EACH PO DAILY, (Reported) Sulfamethoxazole/Trimethoprim 1 Each Tablet, 1 EACH PO BID Prescribed by: RENATE DIETZ on 05/01/20 1424 Tetracaine Sucker Ea, 1 EA MT UD PRN for PAIN Tetracain Suckers These suckers are custom made and require a prescription. Moisten the sucker first and then suck on it gently as far back in the mouth as possible for 2-3 days. You can repeadt it in about an hour. This will take the edge off but not completely numb the throat. Prescribed by: FERMIN WOODWARD on 06/03/19 1016 Patient Home Medication List Home Medication List Reviewed: Yes (RENATE DIETZ MD) Review of Systems Review of Systems Constitutional: see HPI; No chills, No fever EENTM: see HPI, throat pain, throat swelling Respiratory: No cough; short of breath Cardiovascular: no symptoms reported Gastrointestinal: no symptoms reported Genitourinary: no symptoms reported Musculoskeletal: no symptoms reported Skin: see HPI, change in color, lesions (RENATE DIETZ MD) Past Xslwgiu-Ojtfby-Fkvito Hx Past Med/Social Hx: Reviewed Nursing Past Med/Soc Hx (RENATE DIETZ MD) Patient Social History Alcohol Use: Rarely Uses Number of Drinks Today: Alcohol Beverage of Choice: Beer, Wine Recreational Drug Use: No Smoking Status: Current Someday Smoker Type Used: Electronic/Vapor Former Smoker, Quit: Jun 22, 2011 2nd Hand Smoke Exposure: No Recent Foreign Travel: No Contact w/Someone Who Travel: No Recent Infectious Disease Expo: No Recent Hopitalizations: No Physical Abuse: No Sexual Abuse: No Mistreated: No Fear: No (RENATE DIETZ MD) Immunizations Up To Date Tetanus Booster (TDap): Unknown PED Vaccines UTD: No Date of Influenza Vaccine: Feb 20, 2019 (RENATE DIETZ MD) Seasonal Allergies Seasonal Allergies: Yes (RENATE DIETZ MD) Past Medical History Surgeries: Yes (c/s x3, multiple eye sx, hip sx, lithrotripsy, ) Section, Eye Surgery, Gallbladder, Orthopedic Respiratory: Yes Asthma Cardiac: No Neurological: Yes Headaches /Migraines Last Menstrual Period: Apr 07, 2020 Reproductive Disorders: Yes Female Reproductive Disorders: Polycystic Ovarian Dis Sexually Transmitted Disease: No HIV/AIDS: No Genitourinary: Yes (S/P LITHOTRIPSY) Bladder Infection, Kidney Stones Gastrointestinal: Yes (S/P MARLENI) Chronic Constipation Musculoskeletal: Yes (HIPS) Arthritis Endocrine: No HEENT: Yes Loss of Vision: Bilateral Hearing Impairment: Denies Cancer: No Psychosocial: Yes Depression Integumentary: Yes Eczema Blood Disorders: No Adverse Reaction/Blood Tranf: No (N/A) (RENATE DIETZ MD) Family Medical History Reviewed Nursing Family Hx (RENATE DIETZ MD) Patient reports no known family medical history. Physical Exam Vital Signs Vital Signs - First Documented 05/01/20 12:05 Temp 36.9 Pulse 102 Resp 20 B/P (MAP) 108/76 (87) Pulse Ox 97 O2 Delivery Room Air (FROILAN HENRY APRN) Vital Signs Capillary Refill : Less Than 3 Seconds (RENATE DIETZ MD) Height, Weight, BMI Height: 5'6.00" Weight: 183lbs. 0.0oz. 83.905514ne; 25.00 BMI Method:Stated General Appearance: No Apparent Distress, WD/WN HEENT: PERRL/EOMI, Pharynx Normal Neck: Supple, Other (3 x 4 cm area of swelling to the right anterior lateral neck. Erythematous.) Respiratory: Lungs Clear, Normal Breath Sounds Cardiovascular: Regular Rate, Rhythm, No Murmur Gastrointestinal: Non Tender, Soft Back: Normal Inspection, No CVA Tenderness, No Vertebral Tenderness Extremity: Normal Range of Motion, Non Tender Neurologic/Psychiatric: Alert, Oriented x3 Skin: Warm/Dry, Erythema (As discussed above) (RENATE DIETZ MD) Procedures/Interventions I&D : Blade Size: 11 Progress Anesthetized with 1 mL of 2% lidocaine with epinephrine. Incision made with 11 white scalpel. Moderate amount of foul-smelling curd like sebaceous material removed. (FROILAN HENRY APRN) Progress/Results/Core Measures Suspected Sepsis Recent Fever Within 48 Hours: No Infection Criteria Present: None New/Unexplained Altered Menta: No Sepsis Screen: No Definite Risk SIRS Temperature: Pulse: 102 Respiratory Rate: 20 Laboratory Tests 05/01/20 12:35: White Blood Count 7.8 Blood Pressure 108 /76 Mean: 87 Laboratory Tests 05/01/20 12:35: Creatinine 0.75, Platelet Count 193, Total Bilirubin 0.3 (RENATE DIETZ MD) Results/Orders Lab Results Laboratory Tests Test 05/01/20 12:35 Range/Units White Blood Count 7.8 4.3-11.0 10^3/uL Red Blood Count 4.63 3.80-5.11 10^6/uL Hemoglobin 12.4 11.5-16.0 g/dL Hematocrit 38 35-52 % Mean Corpuscular Volume 82 80-99 fL Mean Corpuscular Hemoglobin 27 25-34 pg Mean Corpuscular Hemoglobin Concent 33 32-36 g/dL Red Cell Distribution Width 13.2 10.0-14.5 % Platelet Count 193 130-400 10^3/uL Mean Platelet Volume 11.5 9.0-12.2 fL Immature Granulocyte % (Auto) 0 % Neutrophils (%) (Auto) 69 42-75 % Lymphocytes (%) (Auto) 22 12-44 % Monocytes (%) (Auto) 7 0-12 % Eosinophils (%) (Auto) 1 0-10 % Basophils (%) (Auto) 1 0-10 % Neutrophils # (Auto) 5.4 1.8-7.8 10^3/uL Lymphocytes # (Auto) 1.7 1.0-4.0 10^3/uL Monocytes # (Auto) 0.6 0.0-1.0 10^3/uL Eosinophils # (Auto) 0.1 0.0-0.3 10^3/uL Basophils # (Auto) 0.0 0.0-0.1 10^3/uL Immature Granulocyte # (Auto) 0.0 0.0-0.1 10^3/uL Sodium Level 137 135-145 MMOL/L Potassium Level 3.7 3.6-5.0 MMOL/L Chloride Level 106 98-107 MMOL/L Carbon Dioxide Level 24 21-32 MMOL/L Anion Gap 7 5-14 MMOL/L Blood Urea Nitrogen 10 7-18 MG/DL Creatinine 0.75 0.60-1.30 MG/DL Estimat Glomerular Filtration Rate > 60 BUN/Creatinine Ratio 13 Glucose Level 87 70-105 MG/DL Calcium Level 9.2 8.5-10.1 MG/DL Corrected Calcium 9.0 8.5-10.1 MG/DL Total Bilirubin 0.3 0.1-1.0 MG/DL Aspartate Amino Transf (AST/SGOT) 18 5-34 U/L Alanine Aminotransferase (ALT/SGPT) 22 0-55 U/L Alkaline Phosphatase 72 40-136 U/L C-Reactive Protein High Sensitivity 0.31 0.00-0.50 MG/DL Total Protein 7.3 6.4-8.2 GM/DL Albumin 4.2 3.2-4.5 GM/DL TSH Lea Testing 2.02 0.35-4.94 UIU/ML (FROILAN HENRY APRN) Medications Given in ED Current Medications Medications Dose Ordered Sig/Denia Route Start Time Stop Time Status Last Admin Dose Admin Iohexol 75 ml ONCE ONCE IV 05/01/20 13:30 05/01/20 13:31 DC 05/01/20 13:30 75 ML Sodium Chloride 100 ml ONCE ONCE IV 05/01/20 13:30 05/01/20 13:31 DC 05/01/20 13:30 80 ML (FROILAN HENRY APRN) Vital Signs/I&O 05/01/20 12:05 Temp 36.9 Pulse 102 Resp 20 B/P (MAP) 108/76 (87) Pulse Ox 97 O2 Delivery Room Air (FROILAN HENRY APRN) Vital Signs/I&O Capillary Refill : Less Than 3 Seconds (RENATE DIETZ MD) Blood Pressure Mean: 87 Progress Note : Progress Note Seen and evaluated. IV, labs, bedside UCG ordered. Anticipate CT scan soft tissue neck after labs. Monitor patient. (RENATE DIETZ MD) Diagnostic Imaging Diagonstic Imaging: CT Plain Films/CT/US/NM/MRI: other Comments [facility] [place] [place] NAME: DANAE TOVAR [facility] REC#: [id number] PT STATUS: REG ER : 1990 PHYSICIAN: RENATE DIETZ MD ADMIT DATE: 05/01/20/ER Draft Date of Exam:05/01/20 CT NECK (SOFT TISSUE) W CLINICAL INDICATION: Patient with right-sided neck swelling. EXAM: Axial CT scan of the neck soft tissue performed with 75 mL of Omnipaque 350 IV contrast. Sagittal and coronal reformatted images are created. Auto Exposure Controls were utilized during the CT exam to meet ALARA standards for radiation dose reduction. COMPARISON: CT angiogram of head/neck dated 08/16/2017. FINDINGS: There is interval development of 1.8 cm x 1.4 cm x 1.6 cm peripherally enhancing fluid collection to the right of midline anterior aspect of the mid neck region in the subcutaneous fat. There are small dots of air within this fluid collection. There is ulzoe-qh-pgosferh fat stranding adjacent to the area. This fluid collection is seen superficial to the lower right platysmas muscle region with some thickening of the platysmas muscle seen. This fluid collection abuts the skin surface. There is mild fat stranding seen deep to the right platysmas muscle in the right submandibular and right anterior mid neck region. There is no other fluid collection or fat stranding seen. There is no lymphadenopathy. The nasopharynx, oropharynx, hypopharynx, and laryngeal soft tissue structures are unremarkable. The salivary glands and thyroid gland is unremarkable. Limited visualization of the oral cavity, tongue, sublingual and submandibular regions show no significant abnormality. Visualized upper lung turner are clear. There are posterior disc bulges at C5-C6 and C6-C7 levels noted. IMPRESSION: 1: There is a roughly 1.8 cm, in greatest dimension, abscess in the right of midline anterior neck subcutaneous fat which abuts the skin and is superficial to the right platysmas muscle. There is eefzu-ck-qxbvaepl amount of fat stranding adjacent to this region. There is no gross radiodense foreign object seen in the area. 2: There is no lymphadenopathy. 3: The remainder of this CT exam shows no other significant abnormality. Dictated on workstation # [id number] Dict: 05/01/20 1342 Trans: 05/01/20 1354 [facility] [id number] Interpreted by: JOSE LUCAS MD Electronically signed by: Reviewed: Reviewed by Me (RENATE DIETZ MD) Departure Impression Primary Impression: Neck abscess Disposition: 01 HOME, SELF-CARE Condition: Improved Departure-Patient Inst. Decision time for Depature: 14:22 (RENATE DIETZ MD) Referrals: ALBINO RUSH (PCP/Family) Primary Care Physician Patient Instructions: Abscess Incision and Drainage (DC) Add. Discharge Instructions: All discharge instructions reviewed with patient and/or family. Voiced understanding. Take medication as directed. Keep wound clean. You may use antibiotic ointment and bandage over wound changing twice daily. Clean wound at each dressing change. It is okay to shower but do not soak for prolonged periods of time. You may take ibuprofen 600 mg every 8 hours as needed for pain. You may also take Tylenol/acetaminophen 1000 mg every 8 hours as needed for pain. Return for worse pain, fever, vomiting, weakness, breathing problems or other concerns as needed. Scripts Sulfamethoxazole/Trimethoprim (Bactrim Ds Tablet) 1 Each Tablet 1 EACH PO BID, #14 TAB 0 Refills Prov: RENATE DIETZ MD 05/01/20 RENATE DIETZ MD May 01, 2020 12:41 FROILAN HENRY APRN May 01, 2020 14:31
[2020-05-01 12:44] LABS: BASOPHILS % (AUTO) 1 % (0-10); EOSINOPHILS # (AUTO) 0.1 10^3/uL (0.0-0.3); EOSINOPHILS % (AUTO) 1 % (0-10); HEMATOCRIT 38 % (35-52); HEMOGLOBIN 12.4 g/dL (11.5-16.0); LYMPHOCYTES # (AUTO) 1.7 10^3/uL (1.0-4.0); LYMPHOCYTES % (AUTO) 22 % (12-44); MEAN CORPUSCULAR HEMOGLOBIN 27 pg (25-34); MEAN CORPUSCULAR HGB CONC 33 g/dL (32-36); MEAN CORPUSCULAR VOLUME 82 fL (80-99); MEAN PLATELET VOLUME 11.5 fL (9.0-12.2); MONOCYTES # (AUTO) 0.6 10^3/uL (0.0-1.0); MONOCYTES % (AUTO) 7 % (0-12); NEUTROPHILS # (AUTO) 5.4 10^3/uL (1.8-7.8); NEUTROPHILS % (AUTO) 69 % (42-75); PLATELET COUNT 193 10^3/uL (130-400); WHITE BLOOD COUNT 7.8 10^3/uL (4.3-11.0)
[2020-05-01 13:01] LABS: ALANINE AMINOTRANSFERASE 22 U/L (0-55); ALBUMIN 4.2 GM/DL (3.2-4.5); ALKALINE PHOSPHATASE 72 U/L (40-136); BILIRUBIN,TOTAL 0.3 MG/DL (0.1-1.0); BUN/CREATININE RATIO 13; CALCIUM 9.2 MG/DL (8.5-10.1); CARBON DIOXIDE 24 MMOL/L (21-32); CHLORIDE 106 MMOL/L (98-107); CREATININE SERUM 0.75 MG/DL (0.60-1.30); GFR ESTIMATED > 60; GLUCOSE 87 MG/DL (70-105); POTASSIUM 3.7 MMOL/L (3.6-5.0); SODIUM 137 MMOL/L (135-145); TOTAL PROTEIN 7.3 GM/DL (6.4-8.2)
[2020-05-01 13:21] LABS: TSH (THYROID ANALYZER) 2.02 UIU/ML (0.35-4.94)
[2020-05-01] MEDS ORDERED: HOLD METFORMIN - RECEIVED CONTRAST 20 ML VIAL IV SCH (13:30)
[2020-05-01] MEDS ORDERED: NS 100 ML (IVPB) BAG IV ONE (13:30)
[2020-05-01] MEDS ORDERED: IOHEXOL 350 MG/ML 100 ML (OMNIPAQUE 350) VIAL IV ONE (13:30)
--- NOTE | 2020-05-01 13:54 | Diagnostic Imaging Report ---
CLINICAL INDICATION: Patient with right-sided neck swelling. EXAM: Axial CT scan of the neck soft tissue performed with 75 mL of Omnipaque 350 IV contrast. Sagittal and coronal reformatted images are created. Auto Exposure Controls were utilized during the CT exam to meet ALARA standards for radiation dose reduction. COMPARISON: CT angiogram of head/neck dated 08/16/2017. FINDINGS: There is interval development of 1.8 cm x 1.4 cm x 1.6 cm peripherally enhancing fluid collection to the right of midline anterior aspect of the mid neck region in the subcutaneous fat. There are small dots of air within this fluid collection. There is wogmr-sr-pclphert fat stranding adjacent to the area. This fluid collection is seen superficial to the lower right platysmas muscle region with some thickening of the platysmas muscle seen. This fluid collection abuts the skin surface. There is mild fat stranding seen deep to the right platysmas muscle in the right submandibular and right anterior mid neck region. There is no other fluid collection or fat stranding seen. There is no lymphadenopathy. The nasopharynx, oropharynx, hypopharynx, and laryngeal soft tissue structures are unremarkable. The salivary glands and thyroid gland is unremarkable. Limited visualization of the oral cavity, tongue, sublingual and submandibular regions show no significant abnormality. Visualized upper lung turner are clear. There are posterior disc bulges at C5-C6 and C6-C7 levels noted. IMPRESSION: 1: There is a roughly 1.8 cm, in greatest dimension, abscess in the right of midline anterior neck subcutaneous fat which abuts the skin and is superficial to the right platysmas muscle. There is vllzz-xc-zwqglwhz amount of fat stranding adjacent to this region. There is no gross radiodense foreign object seen in the area. 2: There is no lymphadenopathy. 3: The remainder of this CT exam shows no other significant abnormality. Dictated by: Dictated on workstation # [id number]
[2020-05-01] MEDS ORDERED: NS IV 1000 ML 1,000 ML IV STA (14:01)
[2020-05-01] MEDS ORDERED: TRIM/SULFAMETH 160/800 (SEPTRA DS) TAB PO STA (14:14)
[2020-05-01] MEDS ORDERED: LIDOCAINE/EPI 1%-1:100,000 (XYLOCAINE) 20ML INJ ONE (14:15)
[2020-05-01] MEDS ORDERED: SULF1TAB35 PO (14:24)
[2020-05-01 15:20] VITALS: BP 110/80
== END 2020-05-01 15:20 | disposition home or self-care (01) ==
LOC: EDUNIT# 12:01 → ER 12:03
DX: L02.11 Cutaneous abscess of neck (principal); J45.909 Unspecified asthma, uncomplicated; F17.290 Nicotine dependence, other tobacco product, uncomplicated; Z88.1 Allergy status to other antibiotic agents; Z88.0 Allergy status to penicillin; Z88.8 Allergy status to other drugs, medicaments and biological substances
CPT/HCPCS: 36415; 70491; 80053; 84443; 84703; 85025; 86141; 87070; 87205

== ENCOUNTER 2020-05-23 12:12 | Emergency (ER) | payer MEDICAID ==
[~2020-05-23] VITALS: Ht 167.7 cm; Wt 73.6 kg
[~2020-05-23 12:12] MED LIST changes: +SULF1TAB35 PO
--- NOTE | 2020-05-23 12:46 | ED Abdominal Pain ---
General Chief Complaint: OB < 20 WEEKS Stated Complaint: CRAMPING, SPOTTING 6 WKS Source of Information: Patient Exam Limitations: No Limitations History of Present Illness Date Seen by Provider: May 23, 2020 Time Seen by Provider: 12:32 Initial Comments This is a well-appearing 29-year-old female with a history of PCOS who is 6 weeks and presents to the ER with complaints of lower abdominal pain, cramping, and light pink spotting since yesterday. States she notified her REGULATORY SUBMISSIONS ASSOCIATE, Dr. Granado of symptoms, and they recommended she seek ED evaluation if symptoms persisted today. Is currently sexually active with 1 male partner. LMP 04/06/20. G-6, P-4, A-1. States she has miscarried last in February 2020. Denies fevers, chills, cough, shortness of breath, vaginal discharge or foul odor, dysuria. Allergies and Home Medications Allergies Coded Allergies: Penicillins (Unverified Allergy, Severe, ANAPHYLAXIS, 12/30/17) aripiprazole (Unverified Allergy, Mild, HIVES, 12/30/17) cephalexin (Verified Allergy, Unknown, RASH, 05/25/18) walnut (Verified Allergy, Unknown, 11/11/18) Home Medications Azithromycin 200 Mg/5 Ml Susp.recon, 1 TSP PO DAILY Prescribed by: FERMIN WOODWARD on 06/03/19 1016 Benzonatate 100 Mg Capsule, 100 MG PO Q6H PRN for COUGH Prescribed by: CHELITA LITTLE on 07/29/192008 Dexamethasone 1 Mg/1 Ml Tita, 2 TSP PO DAILY Mix 4MG/2.5CC water Prescribed by: FERMIN WOODWARD on 06/03/19 1016 Hydrocodone/Acetaminophen 15 Ml Solution, 2-2.5 TSP PO Q4H PRN for PAIN-MODERATE (5-7) 8 OZ BOTTLE Prescribed by: FERMIN WOODWARD on 06/03/19 1016 Nitrofurantoin Monohyd/M-Cryst 100 Mg Capsule, 1 TAB PO BID Prescribed by: BRIANNA GILLIAM on 12/19/19 1323 Oseltamivir Phosphate 75 Mg Cap, 75 MG PO BID Prescribed by: CHELITA LITTLE on 07/29/192008 Vit No.124/Iron/FA 1 Each Tablet, 1 EACH PO DAILY, (Reported) Sulfamethoxazole/Trimethoprim 1 Each Tablet, 1 EACH PO BID Prescribed by: RENATE DIETZ on 05/01/20 1424 Tetracaine Sucker Ea, 1 EA MT UD PRN for PAIN Tetracain Suckers These suckers are custom made and require a prescription. Moisten the sucker first and then suck on it gently as far back in the mouth as possible for 2-3 days. You can repeadt it in about an hour. This will take the edge off but not completely numb the throat. Prescribed by: FERMIN WOODWARD on 06/03/19 1016 Patient Home Medication List Home Medication List Reviewed: Yes Review of Systems Review of Systems Constitutional: no symptoms reported EENTM: No Symptoms Reported Respiratory: No Symptoms Reported Cardiovascular: No Symptoms Reported Gastrointestinal: See HPI, Nausea, Vomiting Genitourinary: No Symptoms Reported Musculoskeletal: no symptoms reported Skin: no symptoms reported Psychiatric/Neurological: No Symptoms Reported Endocrine: No Symptoms Reported Hematologic/Lymphatic: No Symptoms Reported Past Sruugyq-Oiofss-Mwzado Hx Patient Social History Alcohol Beverage of Choice: Beer, Wine Type Used: Electronic/Vapor Former Smoker, Quit: Jun 22, 2011 2nd Hand Smoke Exposure: No Recent Foreign Travel: No Contact w/Someone Who Travel: No Recent Hopitalizations: No Immunizations Up To Date Tetanus Booster (TDap): Unknown PED Vaccines UTD: No Date of Influenza Vaccine: Feb 20, 2019 Seasonal Allergies Seasonal Allergies: Yes Past Medical History Surgeries: Yes (c/s x3, multiple eye sx, hip sx, lithrotripsy, ) Section, Eye Surgery, Gallbladder, Orthopedic Respiratory: Yes Asthma Cardiac: No Neurological: Yes Headaches /Migraines Reproductive Disorders: Yes Female Reproductive Disorders: Polycystic Ovarian Dis Sexually Transmitted Disease: No HIV/AIDS: No Genitourinary: Yes (S/P LITHOTRIPSY) Bladder Infection, Kidney Stones Gastrointestinal: Yes (S/P MARLENI) Chronic Constipation Musculoskeletal: Yes (HIPS) Arthritis Endocrine: No HEENT: Yes Loss of Vision: Bilateral Hearing Impairment: Denies Cancer: No Psychosocial: Yes Depression Integumentary: Yes Eczema Blood Disorders: No Adverse Reaction/Blood Tranf: No (N/A) Family Medical History Patient reports no known family medical history. Physical Exam Vital Signs Vital Signs - First Documented 05/23/20 05/23/20 12:33 15:39 Temp 37.0 Pulse 81 Resp 18 B/P (MAP) 105/72 (83) Pulse Ox 98 O2 Delivery Room Air Capillary Refill : Height/Weight/BMI Height: 5'6.00" Weight: 183lbs. 0.0oz. 83.929470qx; 25.00 BMI Method:Stated General Appearance: WD/WN, no apparent distress HEENT: PERRL/EOMI, pharynx normal Neck: non-tender, full range of motion Respiratory: lungs clear, normal breath sounds, no respiratory distress Cardiovascular: regular rate, rhythm, no murmur Gastrointestinal: normal bowel sounds, non tender, soft Extremities: normal range of motion, non-tender, normal inspection Back: normal inspection Neurologic/Psychiatric: no motor/sensory deficits, alert, normal mood/affect, oriented x 3 Skin: normal color, warm/dry Progress/Results/Core Measures Results/Orders Lab Results Laboratory Tests Test 05/23/20 12:44 05/23/20 12:52 Range/Units Urine Color YELLOW Urine Clarity CLEAR Urine pH 6.0 5-9 Urine Specific [place] >=1.030 1.016-1.022 Urine Protein TRACE H NEGATIVE Urine Glucose (UA) NEGATIVE NEGATIVE Urine Ketones NEGATIVE NEGATIVE Urine Nitrite NEGATIVE NEGATIVE Urine Bilirubin NEGATIVE NEGATIVE Urine Urobilinogen 0.2 < = 1.0 MG/DL Urine Leukocyte Esterase NEGATIVE NEGATIVE Urine RBC (Auto) NEGATIVE NEGATIVE Urine RBC 0-2 /HPF Urine WBC RARE /HPF Urine Squamous Epithelial Cells 10-25 H /HPF Urine Crystals NONE /LPF Urine Bacteria NEGATIVE /HPF Urine Casts NONE /LPF Urine Mucus LARGE H /LPF Urine Culture Indicated NO White Blood Count 5.9 4.3-11.0 10^3/uL Red Blood Count 4.42 3.80-5.11 10^6/uL Hemoglobin 11.8 11.5-16.0 g/dL Hematocrit 37 35-52 % Mean Corpuscular Volume 83 80-99 fL Mean Corpuscular Hemoglobin 27 25-34 pg Mean Corpuscular Hemoglobin Concent 32 32-36 g/dL Red Cell Distribution Width 13.0 10.0-14.5 % Platelet Count 209 130-400 10^3/uL Mean Platelet Volume 10.8 9.0-12.2 fL Immature Granulocyte % (Auto) 0 % Neutrophils (%) (Auto) 61 42-75 % Lymphocytes (%) (Auto) 29 12-44 % Monocytes (%) (Auto) 8 0-12 % Eosinophils (%) (Auto) 2 0-10 % Basophils (%) (Auto) 1 0-10 % Neutrophils # (Auto) 3.6 1.8-7.8 10^3/uL Lymphocytes # (Auto) 1.7 1.0-4.0 10^3/uL Monocytes # (Auto) 0.5 0.0-1.0 10^3/uL Eosinophils # (Auto) 0.1 0.0-0.3 10^3/uL Basophils # (Auto) 0.0 0.0-0.1 10^3/uL Immature Granulocyte # (Auto) 0.0 0.0-0.1 10^3/uL Sodium Level 137 135-145 MMOL/L Potassium Level 3.6 3.6-5.0 MMOL/L Chloride Level 104 98-107 MMOL/L Carbon Dioxide Level 23 21-32 MMOL/L Anion Gap 10 5-14 MMOL/L Blood Urea Nitrogen 8 7-18 MG/DL Creatinine 0.68 0.60-1.30 MG/DL Estimat Glomerular Filtration Rate > 60 BUN/Creatinine Ratio 12 Glucose Level 88 70-105 MG/DL Calcium Level 8.7 8.5-10.1 MG/DL Corrected Calcium 8.6 8.5-10.1 MG/DL Total Bilirubin 0.3 0.1-1.0 MG/DL Aspartate Amino Transf (AST/SGOT) 13 5-34 U/L Alanine Aminotransferase (ALT/SGPT) 14 0-55 U/L Alkaline Phosphatase 64 40-136 U/L Total Protein 7.1 6.4-8.2 GM/DL Albumin 4.1 3.2-4.5 GM/DL Human Chorionic Gonadotropin, Quant [id number] H <5 MIU/ML Micro Results Microbiology 05/23/20 Wet Prep - Final, Complete My Orders Orders - SANTOSH FORD APRN Cbc With Automated Diff (05/23/20 12:28) Hcg,Quantitative (05/23/20 12:28) Ed Iv/Invasive Line Start (05/23/20 12:28) Comprehensive Metabolic Panel (05/23/20 12:28) Ua Culture If Indicated (05/23/20 12:28) Wet Prep (05/23/20 12:48) Us Ob Single Fetus<14 [id number] (05/23/20 13:39) Vital Signs/I&O 05/23/20 05/23/20 12:33 15:39 Temp 37.0 Pulse 81 68 Resp 18 18 B/P (MAP) 105/72 (83) 104/68 Pulse Ox 98 96 O2 Delivery Room Air Progress Progress Note : Progress Note Discussed case with Dr. Bobo. Recommend outpatient follow-up with Dr. Granado for trending ultrasound and quantitative hCG. Diagnostic Imaging Diagonstic Imaging: Ultrasound Plain Films/CT/US/NM/MRI: pelvis Comments NAME: DANAE TOVAR [facility] REC#: [id number] PT STATUS: DEP ER : 1990 PHYSICIAN: SANTOSH FORD GETTER FILLER ADMIT DATE: 05/23/20/ER Signed Date of Exam:05/23/20 US OB SINGLE FETUS<14 [id number] PROCEDURE: US OB SINGLE FETUS <14 WKS. TECHNIQUE: Multiple real-time grayscale images were obtained over the gravid uterus in various projections. INDICATION: Pelvic cramping. The uterus measures 9.5 x 8.5 x 5.9 cm. There is an intrauterine gestational sac that contains a pole consistent with approximately 6 weeks 3 days gestation. Heart rate was difficult to detect however this could be secondary to the very small size of the pole at 2 mm. There also appears to be a small subchorionic bleed measuring 24 mm x 27 cm x 13 mm. The adnexa are unremarkable. IMPRESSION: 6 week 3 day intrauterine gestational sac with tiny pole. While no definite heart motion was detected this could be and is most likely owing to very early gestation. Followup ultrasound and/or correlation with serial beta hCG levels could be performed to confirm viability. Note is made of a subchronic bleed. Dictated by: Dictated on workstation # [id number] Dict: 05/23/20 1444 Trans: 05/23/201607 CV [id number] Interpreted by: MARIBEL BUSTILLOS MD Electronically signed by: MARIBEL BUSTILLOS MD 05/23/20 1608 Departure Communication (Admissions) Time/Spoke to Consulting Phy: 15:[address] Bobo, recommended patient follow up with Dr. Granado. May return to ER for any new or worsening symptoms. Impression Primary Impression: Bleeding in early Disposition: 01 HOME, SELF-CARE Condition: Stable/Unchanged Departure-Patient Inst. Decision time for Depature: 15:29 Referrals: ALBINO CARLOS (PCP/Family) Primary Care Physician Patient Instructions: Bleeding With (DC) Add. Discharge Instructions: Plan: 1. Discharge home. 2. Follow up with Dr. Granado, call tomorrow for possible earlier appointment. 3. Complete pelvic rest-nothing inside the vagina, no sexual intercourse. 4. Drink plenty of fluids. 5. Return for any new or concerning symptoms. All discharge instructions reviewed with patient and/or family. Voiced understanding. SANTOSH FORD GETTER FILLER May 23, 2020 12:46
--- NOTE | 2020-05-23 12:50 | NUR ---
PATIENT SENT TO BATHROOM BY REQUEST OF Cain CARTER TO [facility] SELF CULTURE OF VAG AREA.
[2020-05-23 12:52] LABS: BILIRUBIN,URINE NEGATIVE (NEGATIVE); CLARITY,URINE CLEAR; COLOR,URINE YELLOW; GLUCOSE, URINE (UA) NEGATIVE (NEGATIVE); KETONES,URINE NEGATIVE (NEGATIVE); LEUKOCYTE ESTERASE ,URINE NEGATIVE (NEGATIVE); NITRITE,URINE NEGATIVE (NEGATIVE); PROTEIN,URINE TRACE (NEGATIVE)
[2020-05-23 13:04] LABS: BASOPHILS % (AUTO) 1 % (0-10); EOSINOPHILS # (AUTO) 0.1 10^3/uL (0.0-0.3); EOSINOPHILS % (AUTO) 2 % (0-10); HEMATOCRIT 37 % (35-52); HEMOGLOBIN 11.8 g/dL (11.5-16.0); LYMPHOCYTES # (AUTO) 1.7 10^3/uL (1.0-4.0); LYMPHOCYTES % (AUTO) 29 % (12-44); MEAN CORPUSCULAR HEMOGLOBIN 27 pg (25-34); MEAN CORPUSCULAR HGB CONC 32 g/dL (32-36); MEAN CORPUSCULAR VOLUME 83 fL (80-99); MEAN PLATELET VOLUME 10.8 fL (9.0-12.2); MONOCYTES # (AUTO) 0.5 10^3/uL (0.0-1.0); MONOCYTES % (AUTO) 8 % (0-12); NEUTROPHILS # (AUTO) 3.6 10^3/uL (1.8-7.8); NEUTROPHILS % (AUTO) 61 % (42-75); PLATELET COUNT 209 10^3/uL (130-400); WHITE BLOOD COUNT 5.9 10^3/uL (4.3-11.0)
[2020-05-23 13:07] LABS: BACTERIA,URINE NEGATIVE /HPF; RBC,URINE 0-2 /HPF; WBC,URINE RARE /HPF
[2020-05-23 13:27] LABS: ALBUMIN 4.1 GM/DL (3.2-4.5); CHLORIDE 104 MMOL/L (98-107); POTASSIUM 3.6 MMOL/L (3.6-5.0); SODIUM 137 MMOL/L (135-145)
[2020-05-23 13:28] LABS: CALCIUM 8.7 MG/DL (8.5-10.1)
[2020-05-23 13:29] LABS: GLUCOSE 88 MG/DL (70-105); TOTAL PROTEIN 7.1 GM/DL (6.4-8.2)
[2020-05-23 13:30] LABS: CARBON DIOXIDE 23 MMOL/L (21-32)
[2020-05-23 13:31] LABS: BILIRUBIN,TOTAL 0.3 MG/DL (0.1-1.0)
[2020-05-23 13:33] LABS: ALKALINE PHOSPHATASE 64 U/L (40-136); CREATININE SERUM 0.68 MG/DL (0.60-1.30); GFR ESTIMATED > 60
[2020-05-23 13:34] LABS: BUN/CREATININE RATIO 12
[2020-05-23 13:36] LABS: ALANINE AMINOTRANSFERASE 14 U/L (0-55)
--- NOTE | 2020-05-23 14:56 | Diagnostic Imaging Report ---
PROCEDURE: US OB SINGLE FETUS <14 WKS. TECHNIQUE: Multiple real-time grayscale images were obtained over the gravid uterus in various projections. INDICATION: Pelvic cramping. The uterus measures 9.5 x 8.5 x 5.9 cm. There is an intrauterine gestational sac that contains a pole consistent with approximately 6 weeks 3 days gestation. Heart rate was difficult to detect however this could be secondary to the very small size of the pole at 2 mm. There also appears to be a small subchorionic bleed measuring 24 mm x 27 cm x 13 mm. The adnexa are unremarkable. IMPRESSION: 6 week 3 day intrauterine gestational sac with tiny pole. While no definite heart motion was detected this could be and is most likely owing to very early gestation. Followup ultrasound and/or correlation with serial beta hCG levels could be performed to confirm viability. Note is made of a subchronic bleed. Dictated by: Dictated on workstation # [id number]
[2020-05-23 15:39] VITALS: BP 104/68
== END 2020-05-23 15:39 | disposition home or self-care (01) ==
LOC: EDUNIT# 12:12 → ER 12:14
DX: O20.9 Hemorrhage in early pregnancy, unspecified (principal); J45.909 Unspecified asthma, uncomplicated; Z3A.01 Less than 8 weeks gestation of pregnancy; Z87.891 Personal history of nicotine dependence; Z88.0 Allergy status to penicillin; Z88.1 Allergy status to other antibiotic agents; Z88.8 Allergy status to other drugs, medicaments and biological substances
CPT/HCPCS: 36415; 76801; 80053; 81000; 84702; 85025; 87210

== ENCOUNTER → 2020-09-03 | Outpatient (CLI) | payer MEDICAID ==
--- NOTE | 2020-09-03 17:07 | Diagnostic Imaging Report ---
INDICATION: anatomic survey. TECHNIQUE: Multiple real-time grayscale images were obtained over the gravid uterus. COMPARISON: 05/23/2020. FINDINGS: A single live intrauterine gestation is visualized in breech presentation. The placenta is fundal. heart tones measure at 136 bpm. The SEVEN visually is normal. Biometrical measurements are as follows: Biparietal 4.84 cm, age 20 weeks 5 days. Head circumference 18.30 cm, age 20 weeks 5 days. Abdominal circumference 15.89 cm, age 21 weeks 1 days. Femur length 3.44 cm, age 20 weeks 6 days. Sonographic estimate age: 20 weeks 6 days. Sonographic estimated date of delivery: 01/15/21. Estimated Weight: 385 gm (+/- 56 gm). LMP percentile: 20%. heart rate: 136 beats per minute. number: 1 of 1. Cerebellum: visualized Lateral ventricles: Visualized and appear mildly dilated Nasal Bone: visualized Face: visualized Stomach: visualized Kidneys: visualized Bladder: visualized Three vessel cord: visualized Cord insertion: visualized 4 chamber heart: visualized Spine, upper: visualized Spine, lower: visualized Upper extremities: visualized Lower extremities: visualized Hands: Visualized, however not all fingers are well seen. Feet: Visualized, however not all toes are well seen. Cervical length measures 4.6 cm. The bilateral adnexa have an unremarkable appearance. IMPRESSION: 1. Single live intrauterine gestation measuring 20 weeks 6 days with an estimated due date of 01/15/2021. These are within range with the clinical dates. 2. Suggestion of mildly dilated lateral ventricles. Recommend follow-up as indicated. Dictated by: Dictated on workstation # [id number]
== END ==
LOC: RAD 14:37
PROVIDERS: ATTEND Obstetrics & Gynecology
DX: Z34.92 Encounter for supervision of normal pregnancy, unspecified, second trimester (principal); Z3A.20 20 weeks gestation of pregnancy
CPT/HCPCS: 76805

== ENCOUNTER 2020-10-29 20:27 | Outpatient (CLI) | payer MEDICAID ==
[~2020-10-29] VITALS: Ht 162.6 cm; Wt 86.6 kg
[2020-10-29 20:45] VITALS: BP 99/63
[2020-10-29 20:55] LABS: BILIRUBIN,URINE NEGATIVE (NEGATIVE); CLARITY,URINE CLEAR; COLOR,URINE YELLOW; GLUCOSE, URINE (UA) NEGATIVE (NEGATIVE); KETONES,URINE NEGATIVE (NEGATIVE); LEUKOCYTE ESTERASE ,URINE NEGATIVE (NEGATIVE); NITRITE,URINE NEGATIVE (NEGATIVE); PROTEIN,URINE NEGATIVE (NEGATIVE)
[2020-10-29 20:57] LABS: BACTERIA,URINE TRACE /HPF; CALCIUM OXALATE CRYSTALS,UR FEW /LPF; WBC,URINE 0-2 /HPF
--- NOTE | 2020-10-30 07:51 | Physician Query-Final Dx ---
LUCILA HERNANDEZ 10/30/20 0751: Clinic Account Progress/Dx Physician Query: Please give diagnosis Please include # weeks gestation Date of Service October 29, 2020 at 20:27 JERRELL JOHNSTON DO 10/30/20 0756: Clinic Account Progress/Dx DIAGNOSIS: Diagnosis 28 week IUP Pelvic pressure LUCILA HERNANDEZ October 30, 2020 07:51 JERRELL JOHNSTON DO October 30, 2020 07:56
== END 2020-10-29 21:15 | disposition home or self-care (01) ==
LOC: LDRP 20:27 → WSo 20:27
PROVIDERS: ATTEND Obstetrics & Gynecology
DX: O26.893 Other specified pregnancy related conditions, third trimester (principal); Z3A.28 28 weeks gestation of pregnancy
CPT/HCPCS: 81000; G0463; 99212

== ENCOUNTER 2021-01-04 05:32 | Outpatient (CLI) | payer MEDICAID ==
[~2021-01-04] VITALS: Ht 167.7 cm; Wt 91.9 kg
[~2021-01-04 05:32] MED LIST changes: -SULF1TAB35 PO; +SULF1TAB38 PO
== END 2021-01-07 11:07 | disposition home or self-care (01) ==
LOC: PREOP 05:32
PROVIDERS: ATTEND Obstetrics & Gynecology
DX: Z01.818 Encounter for other preprocedural examination (principal)

== ENCOUNTER 2021-01-09 00:14 | Inpatient (IN) | payer MEDICAID ==
[2021-01-09] VITALS (12 sets, daily range): BP systolic 92–121; BP diastolic 61–81
[~2021-01-09] VITALS: Ht 167.7 cm; Wt 91.9 kg
[2021-01-09] MEDS ORDERED: FAMOTIDINE 20MG/2ML IV (PEPCID) ONE (00:35)
[2021-01-09] MEDS ORDERED: CITRIC ACID/SOB CIT (BICITRA) 30 ML UDC ONE (00:35)
[2021-01-09] MEDS ORDERED: METOCLOPRAMIDE INJ 10 MG/2 ML (REGLAN) ONE (00:35)
--- NOTE | 2021-01-09 00:54 | History & Physical-OB ---
OB - Chief Complaint & HPI Date/Time Date of Admission: Date of Admission: Jan 09, 2021 at 00:34 Date seen by a Provider: Jan 09, 2021 Time Seen by a Provider: 00:30 Chief Complaint/History OB-Reason for Admission/Chief: Section Hx : 8 Hx Para: 4214 Indication for : desires repeat , other (Presents in active labor with history of CS x 4) Other reason for admission: Patient reports painful contractions. she has history of CS x4 and there was a window at the last delivery She was scheduled for CS on 01/12/2021, but is in active labor Cervix 0-1 cm dilation and not effaced in the office Thursday and she is now dilated History of 16 week loss and 24 week demise Admission Nurse Assessment Rev: Yes History of Labs O+/- HIV - HBsAg - Hep C - VDRL NR Rub I GBS - Other Had mildly dilated lateral ventricles noted on screening survey She had workup including HSV, Toxo, CMV and rubella vaccines which did not show acute infection (CMC and Rub were +). cfDNA was negative and she had follow up US that did not show the dilated ventricles. otherwise uncomplicated Had vaginal delivery of 24 week fetus and then fullterm vaginal delivery. Then CS x 4 Fully vaccinated for Covid 09/2020 Allergies and Home Medications Allergies Coded Allergies: Penicillins (Unverified Allergy, Severe, ANAPHYLAXIS, 12/30/17) aripiprazole (Unverified Allergy, Mild, HIVES, 12/30/17) cephalexin (Verified Allergy, Unknown, RASH, 05/25/18) walnut (Verified Allergy, Unknown, Anaphylaxis, 01/07/21) Home Medications Vit No.124/Iron/FA 1 Each Tablet, 1 EACH PO DAILY, (Reported) Last Action: Reviewed Patient Home Medication List Home Medication List Reviewed: Yes OB - History Hx of Present Ultrasounds: Normal mid trimester US, Abnormal US findings (dilated lateral ventricles) Obstetrical Complications: None Medical Complications: None Information Induced Hypertension: No Maternal Gestational Diabetes: No Hemorrhage: No Obstetrical History Hx : 8 Hx Para: 4214 Hx # Term Pregnancies: 4 Hx # Pregnancies: 1 (Had a delivery at 24 weeks that was IUFD) Number of Living Children: 4 Hx Termination: No Hx Multiple Gestation: Yes Hx Ectopic : Yes Hx Stillbirth: Yes Hx Complication: Yes Hx Induced Hypertens: Yes Hx Maternal Gestational Diabet: Yes Hx Hemorrhage: Yes Delivery History Hx Dystocia: No Hx Forceps Assisted Delivery: No Hx Vacuum Extraction Assisted: No Hx Placenta Abnormality: No Hx Distress: No Hx Large For Gestational Age I: No Hx Small for Gestational Age I: No Hx Section: Yes ( ) Hx Vaginal Delivery Post C-Sec: No Hx Blood Disorders: No Adverse Rxn to Tranfusion: No (N/A) Patient Past Medical History none Social History/Family History 2nd Hand Smoke Exposure: No Immunizations Tetanus Booster (TDap): Unknown Date of Influenza Vaccine: Jul 10, 2020 OB - Admission Exam Physical Exam HEENT: NCAT Heart: Rhythm Normal Lungs: Clear Abdomen: Gravid Extremities: Edema Reflexes: Normal Cervical Dilatation: 3cm Effacement: 50% Station: Ballotable Membranes: Intact Heart Rate: 140's Accelerations: Accelerations Present Decelerations: No Decelerations Short Term Variability: Present Chcf Variability: Average (6-25) Contractions on Admission: < 5 Minutes Apart OB - Assessment/Plan/Diagnosis Assessment Assessment: active labor, section Admission Dx 1. Previous CS 2. labor 3. History of delivery with IUFD (14 weeks) Admission Status: Inpatient Order (span 2 midnights) Reason for Inpatient Admission: section Plan Plan: Section (Plan repeat cs with risks of bleeding, infection, injury to bowel, bladder and ureter. consent signed), Other (Due to history of PCN and cephalexin allergy will give Clindamycin 900 mg (IV) DONALD MURRY DO Jan 09, 2021 00:54
[2021-01-09 01:14] LABS: BILIRUBIN,URINE NEGATIVE (NEGATIVE); CLARITY,URINE SL CLOUDY; COLOR,URINE ORANGE; GLUCOSE, URINE (UA) NEGATIVE (NEGATIVE); KETONES,URINE NEGATIVE (NEGATIVE); LEUKOCYTE ESTERASE ,URINE NEGATIVE (NEGATIVE); NITRITE,URINE NEGATIVE (NEGATIVE); PROTEIN,URINE NEGATIVE (NEGATIVE)
[2021-01-09] MEDS ORDERED: FAMOTIDINE 20MG/2ML IV (PEPCID) IV ONE (01:15)
[2021-01-09] MEDS ORDERED: CITRIC ACID/SOB CIT (BICITRA) 30 ML UDC PO ONE (01:15)
[2021-01-09] MEDS ORDERED: CLINDAMYCIN 900 MG/50 ML IVPB 50 ML IV ONE (01:15)
[2021-01-09] MEDS ORDERED: ceFAZolin 2 GM IV Premixed 50 ML IV ONE (01:15)
[2021-01-09] MEDS ORDERED: LACTATED RINGERS 1,000 ML IV PRN ×2 (01:15)
[2021-01-09] MEDS ORDERED: METOCLOPRAMIDE INJ 10 MG/2 ML (REGLAN) IV ONE (01:15)
[2021-01-09] MEDS ORDERED: OXYTOCIN PRE-MIX DRIP 1,000 ML IV ONE (01:16)
[2021-01-09] MEDS ORDERED: fentaNYL INJ 100 MCG/2 ML AMP ONE (01:16)
[2021-01-09] MEDS ORDERED: OXYTOCIN PRE-MIX DRIP 500 ML IV ONE (01:19)
[2021-01-09] MEDS ORDERED: ROPIVACAINE 5MG/ML 30ML VIAL ONE (01:38)
[2021-01-09 01:43] LABS: BACTERIA,URINE FEW /HPF; BASOPHILS % (AUTO) 0 % (0-10); EOSINOPHILS # (AUTO) 0.1 10^3/uL (0.0-0.3); EOSINOPHILS % (AUTO) 1 % (0-10); HEMATOCRIT 37 % (35-52); HEMOGLOBIN 11.7 g/dL (11.5-16.0); LYMPHOCYTES # (AUTO) 1.8 10^3/uL (1.0-4.0); LYMPHOCYTES % (AUTO) 17 % (12-44); MEAN CORPUSCULAR HEMOGLOBIN 26 pg (25-34); MEAN CORPUSCULAR HGB CONC 32 g/dL (32-36); MEAN CORPUSCULAR VOLUME 82 fL (80-99); MEAN PLATELET VOLUME 11.6 fL (9.0-12.2); MONOCYTES # (AUTO) 0.8 10^3/uL (0.0-1.0); MONOCYTES % (AUTO) 8 % (0-12); NEUTROPHILS # (AUTO) 8.1 10^3/uL (1.8-7.8); NEUTROPHILS % (AUTO) 74 % (42-75); PLATELET COUNT 201 10^3/uL (130-400); RBC,URINE 0-2 /HPF; WBC,URINE 0-2 /HPF
[2021-01-09] MEDS ORDERED: KETOROLAC 30 MG/ML VIAL ONE (02:43)
--- NOTE | 2021-01-09 02:57 | Cesarean Section Operative ---
Procedure Procedure Note Pre-operative Diagnosis: Marcelle bautista (30 /Para 8 / 421, Gestational Age (wks)39 with [] Post-operative Diagnosis: same [] Procedure: [] low transverse section Physician: DONALD MURRY Farmworker Dairy: KENNEDY Estimated blood loss: 800 mL Disposition: [] Anesthesia: spinal Findings: Viable male infant, Apgars 8/9, weight 6#10 ounces, intact placenta, 3vc, normal appearing uterus, tubes, and ovaries, uterine fibroids, omental adhesions Indications:Marcelle bautista 30 /Para 8 / 4213,Gestational Age (wks)39 with [] Procedure Details: The patient was seen in pre-op and the procedure was discussed with the patient in full, including the risks, benefits, and alternatives. All questions were answered. The patient was taken to the operating room and a time out was performed, verifying patient and procedure. After spinal anesthesia was placed by our anesthesia colleagues, the patient was placed in the dorsal supine with leftward tilt for uterine displacement.~ Her abdomen was then prepped and draped in the typical sterile fashion. A Pfannenstiel skin incision was made using a scalpel and carried down through the underlying fascia. The fascia was incised in the midline and tented up using Christine clamps. On both the inferior and superior fascia side the rectus muscle was dissected off bluntly and sharply using Orozco scissors. The peritoneum was identified and entered bluntly in the midline. This was then stretched laterally using manual strength. After entering the abdominal cavity and confirming lack of intraperitoneal adhesions, a large Leo retractor was placed and the lower uterine segment was visualized. A bladder flap was created with the use of Metzenbaum scissors.~ A scalpel was utilized to make a low transverse uterine incision. Amniotomy was performed with an Allis clamp with return of clear fluid. The 's head was grasped and brought to the level of the incision. Fundal pressure was applied and infant was delivered without difficulty. Mouth and nares were suctioned with bulb suction. After the umbilical cord was clamped and cut, the was handed off to the pediatric staff. A sample of cord blo od was then obtained. The placenta was delivered intact via uterine massage. The uterus was exteriorized and cleared of all clots and debris. The uterine incision was closed using 0 Vicryl in a running locked fashion. A second imbricated layer was placed using 0 Vicryl in a running fashion as well. The uterus was flexed forward and the posterior rectouterine space was inspected and cleared of all clots and debris. Again the hysterotomy site was examined and hemostasis was observed. The bilateral tubes and ovaries appeared normal. The uterus was placed back into the abdominal cavity and abdominal gutters were cleared of all clots and debris. A final check of the uterine incision showed it to be hemostatic. The peritoneum was closed using 3-0 Vicryl in a running fashion. The fascia was closed with 0 Vicryl in a running fashion. The subcutaneous space was hemostatic, and irrigated. The subcutaneous space was closed with 3-0 Vicryl in several single interrupted stitches. The skin was then closed using 4-0 Monocryl in a running subcuticular fashion. The skin edges were reapproximated together and were hemostatic. A pressure dressing was applied. All sponge, lap and needle counts were correct at the end of the procedure per nursing. Vitals - Labs Vital Signs - I&O Vital Signs Date Time Temp Pulse Resp B/P (MAP) Pulse Ox O2 Delivery O2 Flow Rate FiO2 01/09/21 01:21 35.7 102 20 97 Room Air 01/09/21 01:05 35.7 102 20 121/81 (94) 97 Room Air I & O 01/09/21 07:00 Intake Total 50 ml Balance 50 ml Labs Laboratory Tests 01/09/21 00:45: White Blood Count 11.0, Red Blood Count 4.48, Hemoglobin 11.7, Hematocrit 37, Mean Corpuscular Volume 82, Mean Corpuscular Hemoglobin 26, Mean Corpuscular Hemoglobin Concent 32, Red Cell Distribution Width 15.8H, Platelet Count 201, Mean Platelet Volume 11.6, Immature Granulocyte % (Auto) 1, Neutrophils (%) (Auto) 74, Lymphocytes (%) (Auto) 17, Monocytes (%) (Auto) 8, Eosinophils (%) (Auto) 1, Basophils (%) (Auto) 0, Neutrophils # (Auto) 8.1H, Lymphocytes # (Auto) 1.8, Monocytes # (Auto) 0.8, Eosinophils # (Auto) 0.1, Basophils # (Auto) 0.0, Immature Granulocyte # (Auto) 0.1, Urine Color ORANGE, Urine Clarity SL CLOUDY, Urine pH 7.0, Urine Specific Anderson 1.025H, Urine Protein NEGATIVE, Urine Glucose (UA) NEGATIVE, Urine Ketones NEGATIVE, Urine Nitrite NEGATIVE, Urine Bilirubin NEGATIVE, Urine Urobilinogen 1.0, Urine Leukocyte Esterase NEGATIVE, Urine RBC (Auto) NEGATIVE, Urine RBC 0-2, Urine WBC 0-2, Urine Squamous Epithelial Cells 5-10, Urine Crystals NONE, Urine Bacteria FEWH, Urine Casts NONE, Urine Mucus SMALLH, Urine Culture Indicated YES DONALD MURRY DO Jan 09, 2021 02:57
[2021-01-09] MEDS ORDERED: MEASLES,MUMPS,RUBELLA 1 EA INJ SC SCH (03:00)
[2021-01-09] MEDS ORDERED: ONDANSETRON 4 MG/2 ML (SDV) Z0FRAN IVP PRN (03:00)
[2021-01-09] MEDS ORDERED: TETANUS,DIPTH,PERTUSS P/F (BOOSTRIX) 0.5 ML VIAL IM SCH (03:00)
[2021-01-09] MEDS ORDERED: morphine INJ 4 MG/ML 1 ML (VIAL/SYRINGE) IVP PRN (03:00)
[2021-01-09] MEDS ORDERED: OXYTOCIN PRE-MIX DRIP 500 ML IV SCH (03:00)
[2021-01-09] MEDS ORDERED: CATHETER FLUSH 10 ML SYR IV SCH (06:00)
[2021-01-09] MEDS: DOCUSATE SODIUM 100 MG (COLACE) CAP PO SCH ×2 (08:16→20:49)
[2021-01-09] MEDS: ACETAMINOPHEN 500 MG TAB (TYLENOL) PO SCH ×2 (08:17→15:12)
[2021-01-09] MEDS: KETOROLAC 30 MG/ML VIAL IV SCH ×3 (08:18→20:49)
[2021-01-10 02:10] VITALS: BP 104/56
[2021-01-10] MEDS: IBUPROFEN 600 MG (MOTRIN) TAB PO SCH ×2 (02:11→09:14)
[2021-01-10 04:58] VITALS: BP 113/63
[2021-01-10] MEDS ORDERED: MILK OF MAGNESIA 400 MG/5 ML 30 ML UDC PO PRN (05:00)
[2021-01-10 06:21] LABS: BASOPHILS % (AUTO) 0 % (0-10); EOSINOPHILS # (AUTO) 0.2 10^3/uL (0.0-0.3); EOSINOPHILS % (AUTO) 2 % (0-10); HEMATOCRIT 30 % (35-52); HEMOGLOBIN 9.5 g/dL (11.5-16.0); LYMPHOCYTES # (AUTO) 1.4 10^3/uL (1.0-4.0); LYMPHOCYTES % (AUTO) 12 % (12-44); MEAN CORPUSCULAR HEMOGLOBIN 26 pg (25-34); MEAN CORPUSCULAR HGB CONC 32 g/dL (32-36); MEAN CORPUSCULAR VOLUME 84 fL (80-99); MEAN PLATELET VOLUME 11.4 fL (9.0-12.2); MONOCYTES # (AUTO) 0.6 10^3/uL (0.0-1.0); MONOCYTES % (AUTO) 5 % (0-12); NEUTROPHILS # (AUTO) 9.4 10^3/uL (1.8-7.8); NEUTROPHILS % (AUTO) 80 % (42-75); PLATELET COUNT 163 10^3/uL (130-400); WHITE BLOOD COUNT 11.7 10^3/uL (4.3-11.0)
[2021-01-10 09:00] VITALS: BP 120/64
[2021-01-10] MEDS: ACETAMINOPHEN 500 MG TAB (TYLENOL) PO SCH (09:13)
[2021-01-10] MEDS: DOCUSATE SODIUM 100 MG (COLACE) CAP PO SCH (09:13)
--- NOTE | 2021-01-10 10:58 | Postpartum Progress Note ---
Post Op Post-operative Day #[] Subjective: Patient is without complaints. Ambulating, voiding after holt removed. Tolerating a regular diet without nausea or vomiting. Normal lochia. Pain is well controlled with oral pain medications. Passing flatus. [] feeding. [] Objective: [ 01/10/21 01/10/21 02:10 04:58 Temp 36.8 37.0 Pulse 76 64 Resp 18 18 B/P (MAP) 104/56 (72) 113/63 (80) Pulse Ox 97 98 O2 Delivery Room Air Room Air 01/09/21 23:59 Intake Total 2040 ml Output Total 1000 ml Balance 1040 ml Laboratory Tests Test 01/10/21 06:02 Range/Units White Blood Count 11.7 H 4.3-11.0 10^3/uL Red Blood Count 3.60 L 3.80-5.11 10^6/uL Hemoglobin 9.5 L 11.5-16.0 g/dL Hematocrit 30 L 35-52 % Mean Corpuscular Volume 84 80-99 fL Mean Corpuscular Hemoglobin 26 25-34 pg Mean Corpuscular Hemoglobin Concent 32 32-36 g/dL Red Cell Distribution Width 15.9 H 10.0-14.5 % Platelet Count 163 130-400 10^3/uL Mean Platelet Volume 11.4 9.0-12.2 fL Immature Granulocyte % (Auto) 1 % Neutrophils (%) (Auto) 80 H 42-75 % Lymphocytes (%) (Auto) 12 12-44 % Monocytes (%) (Auto) 5 0-12 % Eosinophils (%) (Auto) 2 0-10 % Basophils (%) (Auto) 0 0-10 % Neutrophils # (Auto) 9.4 H 1.8-7.8 10^3/uL Lymphocytes # (Auto) 1.4 1.0-4.0 10^3/uL Monocytes # (Auto) 0.6 0.0-1.0 10^3/uL Eosinophils # (Auto) 0.2 0.0-0.3 10^3/uL Basophils # (Auto) 0.0 0.0-0.1 10^3/uL Immature Granulocyte # (Auto) 0.1 0.0-0.1 10^3/uL Physical Exam: General - Alert and oriented, no apparent distress Abdomen - Soft, appropriately tender to palpation, non-distended, fundus firm at umbilicus Incision - clean, dry and intact; no erythema or induration, no drainage Extremities - no edema, negative Reyna's bilaterally [] Assessment: [] post-operative day # [], status post []. Recovering well, hemodynamically stable Acute blood loss anemia [] Plan: Routine post-operative care. Encourage breast feeding. Encourage ambulation. VTE prophylaxis: SCDs. Ferrous sulfate supplementation. Plan for discharge [] Vitals - Labs Vital Signs - I&O Vital Signs Date Time Temp Pulse Resp B/P (MAP) Pulse Ox O2 Delivery O2 Flow Rate FiO2 01/10/21 04:58 37.0 64 18 113/63 (80) 98 Room Air 01/10/21 02:10 36.8 76 18 104/56 (72) 97 Room Air 01/09/21 20:51 37.0 67 18 105/75 (85) 99 Room Air 01/09/21 16:15 36.6 71 18 107/61 (76) 98 Room Air 01/09/21 12:45 36.4 72 18 106/64 (78) 99 Room Air I & O 01/10/21 06:59 Intake Total 3540 ml Output Total 1000 ml Balance 2540 ml Labs Laboratory Tests 01/10/21 06:02: White Blood Count 11.7H, Red Blood Count 3.60L, Hemoglobin 9.5L, Hematocrit 30L, Mean Corpuscular Volume 84, Mean Corpuscular Hemoglobin 26, Mean Corpuscular Hemoglobin Concent 32, Red Cell Distribution Width 15.9H, Platelet Count 163, Mean Platelet Volume 11.4, Immature Granulocyte % (Auto) 1, Neutrophils (%) (Auto) 80H, Lymphocytes (%) (Auto) 12, Monocytes (%) (Auto) 5, Eosinophils (%) (Auto) 2, Basophils (%) (Auto) 0, Neutrophils # (Auto) 9.4H, Lymphocytes # (Auto) 1.4, Monocytes # (Auto) 0.6, Eosinophils # (Auto) 0.2, Basophils # (Auto) 0.0, Immature Granulocyte # (Auto) 0.1 Microbiology 01/09/21 MRSA Screen - Final, Complete MRSA not isolated DONALD MURRY DO Jan 10, 2021 10:58
[2021-01-10] MEDS ORDERED: ACET-93 PO (11:00)
[2021-01-10] MEDS ORDERED: DCS100C PO (11:00)
[2021-01-10] MEDS ORDERED: OXC5T PO (11:00)
[2021-01-10] MEDS ORDERED: IBUP-844 PO (11:00)
--- NOTE | 2021-01-10 11:02 | Discharge Inst-Women's Service ---
Discharge Inst-Women's Serv Depart Medication/Instructions New, Converted or Re-Newed RX: Transmitted to Pharmacy Instructions no lifting over 25 lbs nothing in the vagina no driving for 1 week Final Diagnosis previous section labor acute blood loss anemia uterine fibroids Problems Reviewed?: Yes Consults/Follow Up Additional Follow Up: Yes (1 week and 6 weeks) Activity Activity: Activity as Tolerated Driving Instructions: No Driving for 1 Week NO SMOKING: NO SMOKING Nothing Inside Vagina: No Douching, No [place], No Tampons Diet Discharge Diet: No Restrictions Symptoms to Report to : Bleeding Excessive, Pain Increased, Fever Over 101 Degrees F, Vaginal Bleeding Increase, Cramps in Feet or Legs, Vaginal Discharge Foul For Any Problems or Questions: Contact Your Physician Skin/Wound Care Infection Signs and Symptoms: Increased Redness, Foul Odor of Wound, Increased Drainage, Skin Itchy or Has a Rash, Increased Swelling, Temperature Above 101 F Operative Area Clean and Dry: Keep Incision Clean/Dry Stitches/[place]/Dermabond: Dermabond Bathing Instructions: DONALD Christianson DO Jan 10, 2021 11:02
[2021-01-10 15:00] VITALS: BP 120/64
== END 2021-01-10 15:00 | disposition home or self-care (01) | DRG 787 ==
LOC: WSo 00:14 → LDRP 00:16 → WSo 00:34 → LDRP 00:34 → WS 03:56
PROVIDERS: ADMIT Obstetrics & Gynecology; ATTEND Obstetrics & Gynecology
PROC: 10D00Z1 Extraction of Products of Conception, Low, Open Approach (ICD-10-PCS; principal; 2021-01-09 01:49)
DX: O34.211 Maternal care for low transverse scar from previous cesarean delivery (principal); D62 Acute posthemorrhagic anemia; Z3A.39 39 weeks gestation of pregnancy; Z37.0 Single live birth; O90.81 Anemia of the puerperium
CPT/HCPCS: 36415; 81000; 85025; 85027; 86850; 86900; 86901; 87081; 87088; 94664; 99212

== ENCOUNTER 2021-03-04 06:19 | Outpatient (CLI) | payer MEDICAID ==
[~2021-03-04] VITALS: Ht 167.7 cm; Wt 81.7 kg
[~2021-03-04 06:19] MED LIST changes: +ACET-93 PO; +DCS100C PO
== END 2021-03-04 14:59 | disposition home or self-care (01) ==
LOC: PREOP 06:19
PROVIDERS: ATTEND Obstetrics & Gynecology
DX: Z01.818 Encounter for other preprocedural examination (principal)

== ENCOUNTER 2021-03-12 08:03 | Day surgery (SDC) | payer MEDICAID ==
[2021-03-12] VITALS (9 sets, daily range): BP systolic 90–121; BP diastolic 42–76
[~2021-03-12 08:03] MED LIST changes: -DCS100C PO; +DOCU-239 PO
[2021-03-12] MEDS ORDERED: CLINDAMYCIN 600 MG/50 ML IVPB 50 ML IV ONE (08:15)
[2021-03-12] MEDS: LACTATED RINGERS 1,000 ML IV PRN ×2 (08:40→11:13)
[2021-03-12 08:49] LABS: BASOPHILS # (AUTO) 0.1 10^3/uL (0.0-0.1); BASOPHILS % (AUTO) 1 % (0-10); EOSINOPHILS # (AUTO) 0.1 10^3/uL (0.0-0.3); EOSINOPHILS % (AUTO) 3 % (0-10); HEMATOCRIT 40 % (35-52); HEMOGLOBIN 12.7 g/dL (11.5-16.0); LYMPHOCYTES # (AUTO) 1.7 10^3/uL (1.0-4.0); LYMPHOCYTES % (AUTO) 32 % (12-44); MEAN CORPUSCULAR HEMOGLOBIN 26 pg (25-34); MEAN CORPUSCULAR HGB CONC 32 g/dL (32-36); MEAN CORPUSCULAR VOLUME 82 fL (80-99); MEAN PLATELET VOLUME 11.7 fL (9.0-12.2); MONOCYTES # (AUTO) 0.4 10^3/uL (0.0-1.0); MONOCYTES % (AUTO) 8 % (0-12); NEUTROPHILS % (AUTO) 57 % (42-75); PLATELET COUNT 252 10^3/uL (130-400); WHITE BLOOD COUNT 5.3 10^3/uL (4.3-11.0)
[2021-03-12] MEDS ORDERED: ONDANSETRON 4 MG/2 ML (SDV) Z0FRAN IV ONE (09:00)
[2021-03-12] MEDS ORDERED: SCOPOLAMINE 1.5 MG (TRANSDERM-SCOP) PATCH TOP ONE (09:00)
[2021-03-12] MEDS ORDERED: FAMOTIDINE 20MG/2ML IV (PEPCID) IV ONE (09:00)
--- NOTE | 2021-03-12 09:08 | Progress Note-Pre Operative ---
Pre-Operative Progress Note H&P Reviewed The H&P was reviewed, patient examined and no changes noted. Date Seen by Provider: Mar 12, 2021 Time Seen by Provider: 09:00 Date H&P Reviewed: Mar 12, 2021 Time H&P Reviewed: 07:30 Pre-Operative Diagnosis: endometriosis, menorrhagia DONALD MURRY DO Mar 12, 2021 09:08
[2021-03-12] MEDS ORDERED: proPOfol 200 MG/20 ML (DIPRIVAN) VIAL IV ONE (09:15)
[2021-03-12] MEDS ORDERED: SEVOFLURANE (ULTANE) 15 ML INHAL SOLN ONE ×2 (09:15→12:50)
[2021-03-12] MEDS ORDERED: fentaNYL INJ 100 MCG/2 ML AMP ONE (09:15)
[2021-03-12] MEDS ORDERED: LIDOCAINE PF 2% 5 ML (XYLOCAINE) VIAL ONE (09:15)
[2021-03-12] MEDS ORDERED: MIDAZOLAM 2 MG/2 ML (VERSED) VIAL ONE (09:15)
[2021-03-12] MEDS ORDERED: ROCURONIUM 10 MG/ML 5 ML SYRINGE IV ONE (09:15)
[2021-03-12] MEDS ORDERED: ONDANSETRON 4 MG/2 ML (SDV) Z0FRAN ONE (09:15)
[2021-03-12 09:25] LABS: CLARITY,URINE CLEAR; COLOR,URINE YELLOW; GLUCOSE, URINE (UA) NEGATIVE (NEGATIVE); KETONES,URINE TRACE (NEGATIVE); LEUKOCYTE ESTERASE ,URINE TRACE (NEGATIVE); NITRITE,URINE NEGATIVE (NEGATIVE); PROTEIN,URINE 1+ (NEGATIVE)
[2021-03-12] MEDS ORDERED: LIDOCAINE/EPI 1%-1:100,000 (XYLOCAINE) 20ML ONE (09:26)
[2021-03-12 09:51] LABS: BACTERIA,URINE NEGATIVE /HPF; BILIRUBIN,URINE 1+ (NEGATIVE); RBC,URINE 0-2 /HPF
[2021-03-12] MEDS ORDERED: PHENYLEPHRINE 100 MCG/ML 10 ML (ANESTHESIA) SYR ONE (10:51)
[2021-03-12] MEDS ORDERED: GLYCOPYRROLATE 0.2 MG/ML (ROBINUL) 2 ML VIAL ONE (12:24)
[2021-03-12] MEDS ORDERED: NEOSTIGMINE 3 MG/3 ML VIAL ONE (12:24)
[2021-03-12] MEDS ORDERED: KETOROLAC 30 MG/ML VIAL ONE (12:32)
--- NOTE | 2021-03-12 12:40 | Operative Report ---
Operative Report Date of Procedure/Surgery Mar 12, 2021 Surgeon (s) DONALD MURRY DO Customer Response Representative (s): Janessa Gonzalez, MS III Post-Operative Diagnosis left vaginal cyst menorrhagia chronic pelvic pain endometriosis vesicouterine adhesions left ovarian cysts Procedure Performed RaTH, bilateral salpingectomy Lysis of adhesions cyst Description of Procedure Anesthesia Type: General Estimated blood loss (mL): 100 Specimen(s) collected/removed uterus, bilateral tubes Description of the Procedure After informed consent was obtained, patient was taken into the operating room where general anesthetic was found to be adequate. She was prepped and draped in the usual sterile fashion in the dorsal lithotomy position. A Ewing catheter was placed. A speculum was placed in the vagina. The cervix was visualized and the anterior lip was grasped with a sharp toothed tenaculum. There was a 3 cm vaginal cyst lateral to the cervix at the cervicovaginal junction. The uterus was sounded and depth was approximately 12 centimeters. I placed the Bobbi device (12 cm) and a 3.5 cm collar was advanced over the cervix. I inserted the Bobbi without difficulty, inflating the balloon and securing it around the fornix of the cervix. The collar was then secured with sutures at 12 o'clock. Attention was then turned to the patient's abdomen. A supraumbilical incision was made about 8 mm. A Veress needle was inserted and I confirmed intraab dominal placement with a drop in pressure and the saline drop test. The opening pressure was 6 mmHg. I then insufflated the abdomen to a maximum of 15 mmHg with warmed CO2 gas. I placed an additional 8 mm trocar in the left abdomen lateral to the umbilicus approximately 12 cm to the left. The second robotic port was placed about 15 cm lateral to the umbilicus placement. This was an 8 mm trocar. These were placed under direct visualization of the laparoscope. 1% lidocaine with epinephrine was injected prior to placement of all trocars. When all placements were confirmed, the patient was placed in steep Trendelenburg allowing adequate visualization and the robot was brought in for docking. The docking was accomplished without difficulty. I then took over the command of the robot utilizing the Surgiseal and monopolar miguel a. There were fairly extensive uterovesicular adhesions from previous sections. These were both filmy and dense. The uterus was thus held anteriorly and the fundus was retroverted. At this point, I was able to visualize the round ligaments bilaterally and grasped them and cauterized with bipolar cautery and then cut with my miguel a. I then did bilateral salpingectomy. I incised the mesosalpinx with the miguel a. the uterinovarian ligament was then grasped bilaterally with the vessel sealer and transected. I then moved my dissection to the posterior leaves of the broad ligament. I dissected the posterior leaves of the broad ligament off the uterine arteries skeletonizing them bilaterally. I then took a second clamp with the bipolar cautery and with the miguel a, transected the vessels away from the lateral aspect to the cervical stroma. I dissected the anterior peritoneum off the lower uterine segment. I continually pushed the bladder back and I took excessively great care and I was eventually able to dissect the vesicouterine peritoneum off the lower uterine segment. This took an additional 30 minutes to carefully dissect the bladder down off the lower uterine segment. I then dissected in a V fashion towards the midline between the uterosacral ligaments. This allowed me to skeletonize the uterine vessels bilaterally. The balloon on the BOBBI was insufflated. This allowed me to see the BOBBI circumferentially. I then performed a colpotomy anteriorly and then amputate with cervix away from the vaginal fornix. I then continued the colpotomy circumferentially. Once this was performed, the licensed nursing assistant removed the uterus, tubes and ovaries through the vagina. She then left a sponge in the vagina to maintain the pneumoperitoneum. . I was now able to visualize the vaginal wall cyst that was lateral to the cervix on the left. I did not dissect this out as I did not want to cause a fistula, but I ruptured the cyst and it drained clear fluid. I then began closure of the vaginal cuff. I closed the apices of the vaginal cuff with 2-0 Vicryl V lock sutures with a colposuspension through the uterosacral ligaments. This suspended the apices of the vaginal cuff. I extended this to the midline from both sides and overlapped the V lock sutures in the midline. Excellent closure is noted and hemostasis is achieved. I then irrigated the pelvis and there was good hemostasis. All the needles were removed from the patient's abdomen. There were several cysts noted on the left ovary. The ovary also had periovarian adhesions that were taken down. I perforated and fulgerated the cyst and drained clear fluid. There was an additional cyst that was approximately 1 cm that drained a more viscous, chocolate substance consistent with an endometrima or an old hemorrhagic cyst. I did not remove the ovary. Now, the robotic instruments were removed and the robot was docked back to laparoscopy. The pelvis was irrigated. There was no active bleeding noted. Bilateral ureters were seen the entire time during the surgery and were peristalsing. There was no excessive bleeding noted. However, due to the extensive dissection, Surgiflo was placed over the vaginal cuff. The trocars were removed under direct visualization. The laparoscopic sites were visualized and found to be hemostatic. The trocar sites were injected with 0.25% Marcaine. The skin incisions were closed with 4-0 Monocryl in a subcuticular fashion and then with Dermabond. Op sites were placed over the incision sites. The instruments were removed from the vagina and I noted there were no abrasions. I examined the vagina and found an abrasion from removing the uterus through the vagina. It was bleeding slightly and was not able to be controlled with pressure. I used AgNO3 for hemostasis. Sponge, lap, needle and instrument counts correct times two. Patient was awakened and taken to recovery in a stable condition. Findings of the Procedure uterus tubes Allergies and Home Medications Allergies Coded Allergies: Penicillins (Unverified Allergy, Severe, ANAPHYLAXIS, 12/30/17) aripiprazole (Unverified Allergy, Mild, HIVES, 12/30/17) cephalexin (Verified Allergy, Unknown, RASH, 05/25/18) walnut (Verified Allergy, Unknown, Anaphylaxis, 01/07/21) Patient Home Medication List Home Medication List Reviewed: Yes Acetaminophen (Acetaminophen) 500 Mg Tablet, 1,000 MG PO Q8HR Prescribed by: DONALD MURRY on 03/12/21 1309 Docusate Sodium (Dok) 100 Mg Capsule, 100 MG PO BID Prescribed by: DONALD MURRY on 03/12/21 1309 Ibuprofen (Ibu) 600 Mg Tablet, 600 MG PO Q6HR Prescribed by: DONALD MURRY on 03/12/21 1309 Oxycodone Hcl (Oxyir Tablet) 5 Mg Tab, 5 MG PO Q4HR PRN for PAIN-SEE DOSE INSTRUCTIONS Prescribed by: DONALD MURRY on 03/12/21 1310 Vit No.124/Iron/FA ( Vitamin Tablet) 1 Each Tablet, 1 EACH PO DAILY, (Reported) Entered as Reported by: ADELAIDA DOLAN on 08/22/18 1450 DONALD MURRY DO Mar 12, 2021 12:40
[2021-03-12] MEDS ORDERED: CHLORASEPTIC LOZENGE MM PRN (12:45)
[2021-03-12] MEDS ORDERED: LACTATED RINGERS 1,000 ML IV SCH (12:45)
[2021-03-12] MEDS ORDERED: ONDANSETRON 4 MG (ZOFRAN) ORAL DISSOLVE TAB PO PRN (12:45)
[2021-03-12] MEDS ORDERED: morphine INJ 4 MG/ML 1 ML (VIAL/SYRINGE) IV PRN (12:45)
[2021-03-12] MEDS ORDERED: NALOXONE 0.4 MG/ML 1 ML (NARCAN) VIAL IV PRN (12:45)
--- NOTE | 2021-03-12 12:48 | Anesthesia-General Post-Op ---
General Patient Condition Mental Status/LOC: Same as Preop Cardiovascular: Satisfactory Nausea/Vomiting: Absent Respiratory: Satisfactory Pain: Controlled Complications: Absent Post Op Complications Complications None Follow Up Care/Instructions Patient Instructions None needed. Anesthesia/Patient Condition Patient Condition Patient is doing well, no complaints, stable vital signs, no apparent adverse anesthesia problems. No complications reported per nursing. MARSHALL VÁZQUEZ CRNA Mar 12, 2021 12:48
[2021-03-12] MEDS ORDERED: MEPERIDINE (DEMEROL) INJ 50 MG/ML IVP ONE (13:00)
[2021-03-12] MEDS ORDERED: morphine INJ 10 MG/ML 1ML (SYR OR VIAL) IVP ONE (13:00)
[2021-03-12] MEDS ORDERED: PROMETHAZINE INJ 25 MG/ML (PHENERGAN) AMP IVP ONE (13:00)
[2021-03-12] MEDS ORDERED: fentaNYL INJ 100 MCG/2 ML AMP IVP ONE (13:00)
[2021-03-12] MEDS ORDERED: ONDANSETRON 4 MG/2 ML (SDV) Z0FRAN IVP PRN (13:00)
[2021-03-12] MEDS ORDERED: IBUP-844 PO (13:09)
[2021-03-12] MEDS ORDERED: ACET-93 PO (13:09)
[2021-03-12] MEDS ORDERED: DOCU-239 PO (13:09)
[2021-03-12] MEDS ORDERED: OXC5T PO (13:09)
--- NOTE | 2021-03-12 13:12 | Discharge Inst-Women's Service ---
Discharge Inst-Women's Serv Depart Medication/Instructions New, Converted or Re-Newed RX: Transmitted to Pharmacy Final Diagnosis pelvic pain left vaginal wall cyst left ovarian cyst menorrhagia Problems Reviewed?: Yes Consults/Follow Up Additional Follow Up: Yes Activity Activity: Activity as Tolerated Driving Instructions: No Driving for 1 Week NO SMOKING: NO SMOKING Nothing Inside Vagina: No Douching, No [place], No Tampons Diet Discharge Diet: No Restrictions Symptoms to Report to : Pain Increased, Fever Over 101 Degrees F, Vaginal Bleeding Increase, Cramps in Feet or Legs, Vaginal Discharge Foul For Any Problems or Questions: Contact Your Physician Skin/Wound Care Infection Signs and Symptoms: Increased Redness, Foul Odor of Wound, Increased Drainage, Skin Itchy or Has a Rash, Increased Swelling, Temperature Above 101 F Stitches/[place]/Dermabond: Dermabond Bathing Instructions: DONALD Christianson DO Mar 12, 2021 13:12
[2021-03-12] MEDS ORDERED: ACETAMINOPHEN 500 MG TAB (TYLENOL) PO SCH (14:00)
[2021-03-12 17:35] LABS: POTASSIUM 4.4 MMOL/L (3.6-5.0)
[2021-03-12 17:36] LABS: CALCIUM 9.2 MG/DL (8.5-10.1)
[2021-03-12 17:41] LABS: CREATININE SERUM 0.79 MG/DL (0.60-1.30)
[2021-03-12] MEDS ORDERED: KETOROLAC 30 MG/ML VIAL IV SCH (18:00)
[2021-03-12] MEDS ORDERED: traZODone 50 MG (DESYREL) TAB PO SCH (21:00)
[2021-03-12] MEDS ORDERED: DOCUSATE SODIUM 100 MG (COLACE) CAP PO SCH (21:00)
[2021-03-13] MEDS ORDERED: IBUPROFEN 600 MG (MOTRIN) TAB PO SCH (18:00)
== END 2021-03-12 18:45 | disposition home or self-care (01) ==
LOC: SDC 08:03 → WS 13:16 → SDC 18:45
PROVIDERS: ATTEND Obstetrics & Gynecology
DX: N89.8 Other specified noninflammatory disorders of vagina (principal); N92.0 Excessive and frequent menstruation with regular cycle; N18.2 Chronic kidney disease, stage 2 (mild); N93.9 Abnormal uterine and vaginal bleeding, unspecified; N80.3 Endometriosis of pelvic peritoneum; N94.5 Secondary dysmenorrhea; G89.29 Other chronic pain; N80.9 Endometriosis, unspecified; N73.6 Female pelvic peritoneal adhesions (postinfective); H33.11 Cyst of ora serrata; N84.0 Polyp of corpus uteri; J45.909 Unspecified asthma, uncomplicated; E66.9 Obesity, unspecified; F32.9 Major depressive disorder, single episode, unspecified; Z79.891 Long term (current) use of opiate analgesic; Z79.899 Other long term (current) drug therapy; Z87.891 Personal history of nicotine dependence; Z80.49 Family history of malignant neoplasm of other genital organs; Z80.3 Family history of malignant neoplasm of breast; Z80.0 Family history of malignant neoplasm of digestive organs
CPT/HCPCS: 36415; 80048; 81000; 84703; 85025; 86850; 86900; 86901; 87081; 88307; 94664

== ENCOUNTER → 2021-09-24 | Outpatient (CLI) | payer MEDICAID ==
--- NOTE | 2021-09-24 17:29 | Diagnostic Imaging Report ---
Indication: Routine screening. No prior mammograms are available for comparison. This is a baseline study. 2-D and 3-D bilateral screening mammography was performed with CAD. Both breasts are heterogeneously dense, limiting the sensitivity of mammography. No mass or malignant-appearing microcalcifications are seen. Axillae are unremarkable. IMPRESSION: BI-RADS Category 1 No mammographic features suspicious for malignancy are identified. ACR BI-RADS Category 1: Negative. Result letter will be mailed to the patient. Note: At least 10% of breast cancer is not imaged by mammography. Dictated by: Dictated on workstation # [id number]
== END ==
LOC: RAD 12:34
PROVIDERS: ATTEND Obstetrics & Gynecology
DX: Z12.31 Encounter for screening mammogram for malignant neoplasm of breast (principal)
CPT/HCPCS: 77063; 77067

== ENCOUNTER 2022-04-04 08:43 | Inpatient (IN) | payer MEDICAID ==
[2022-04-04] VITALS (9 sets, daily range): BP systolic 93–109; BP diastolic 57–84
[2022-04-04] MEDS ORDERED: ONDANSETRON 4 MG/2 ML (SDV) Z0FRAN IVP ONE (09:00)
[2022-04-04] MEDS ORDERED: IOHEXOL 350 MG/ML 100 ML (OMNIPAQUE 350) VIAL IV ONE (09:00)
[2022-04-04] MEDS ORDERED: fentaNYL INJ 100 MCG/2 ML AMP IVP ONE (09:00)
[2022-04-04] MEDS ORDERED: NS 100 ML (IVPB) BAG IV ONE (09:00)
[2022-04-04] MEDS ORDERED: HOLD METFORMIN - RECEIVED CONTRAST 20 ML VIAL IV SCH (09:00)
[2022-04-04] MEDS ORDERED: CATHETER FLUSH 10 ML SYR IV PRN (09:00)
--- NOTE | 2022-04-04 09:02 | ED Abdominal Pain ---
General Chief Complaint: Abdominal/GI Problems Stated Complaint: RIGHT SIDE PAIN - VOMITING Nursing Triage Note: PT AMB TO [facility] 5 WITH C/O R SIDE ABD PAIN X3 DAYS AND VOMIT THIS MORNING. PT STATES SHE HAS HAD PROBLEMS WITH HER APPENDIX FOR 5 YEARS Source of Information: Patient Exam Limitations: No Limitations History of Present Illness Date Seen by Provider: Apr 04, 2022 Time Seen by Provider: 08:46 Initial Comments 51-year-old female presents for right lower quadrant abdominal pain, nausea and vomiting for 3 days. She tells me that she has had "problems with my appendix for 5 years." She has a chronic dull pain in her right lower abdomen with episodes of sharp stabbing pain. Is typically happen a couple times a year. The current episode is severe and related with nausea and vomiting. She has had her gallbladder removed and has had a total abdominal hysterectomy. Today she describes a sharp stabbing pain in her right lower abdomen without radiation, aggravating or alleviating factors. It is moderate to severe. No aggravating or alleviating factors. Emesis is nonbloody nonbilious. No vaginal symptoms. No urinary symptoms. No changes in her bowels. Allergies and Home Medications Allergies Coded Allergies: Penicillins (Unverified Allergy, Severe, ANAPHYLAXIS, 12/30/17) aripiprazole (Unverified Allergy, Mild, HIVES, 12/30/17) cephalexin (Verified Allergy, Unknown, RASH, 05/25/18) walnut (Verified Allergy, Unknown, Anaphylaxis, 01/07/21) Patient Home Medication List Home Medication List Reviewed: Yes Acetaminophen (Acetaminophen) 500 Mg Tablet, 1,000 MG PO Q8HR Prescribed by: DONALD MURRY on 03/12/21 1309 Docusate Sodium (Dok) 100 Mg Capsule, 100 MG PO BID Prescribed by: DONALD MURRY on 03/12/21 1309 Ibuprofen (Ibu) 600 Mg Tablet, 600 MG PO Q6HR Prescribed by: DONALD MURRY on 03/12/21 1309 Oxycodone Hcl (Oxyir Tablet) 5 Mg Tab, 5 MG PO Q4HR PRN for PAIN-SEE DOSE INSTRUCTIONS Prescribed by: DONALD MURRY on 03/12/21 1310 Vit No.124/Iron/FA ( Vitamin Tablet) 1 Each Tablet, 1 EACH PO DAILY, (Reported) Entered as Reported by: ADELAIDA DOLAN on 08/22/18 9297 Review of Systems Review of Systems Constitutional: no symptoms reported EENTM: No Symptoms Reported Respiratory: No Symptoms Reported Cardiovascular: No Symptoms Reported Gastrointestinal: Abdominal Pain, Nausea, Vomiting Genitourinary: No Symptoms Reported Musculoskeletal: no symptoms reported Skin: no symptoms reported Psychiatric/Neurological: No Symptoms Reported Endocrine: No Symptoms Reported Hematologic/Lymphatic: No Symptoms Reported Past Iaegqwi-Cwurjj-Cftopn Hx Patient Social History Tobacco Use?: No Use of E-Cig and/or Vaping dev: Yes E-Cig or Vaping type used: Nicotine Substance use?: No Alcohol Use?: Yes Alcohol Frequency: Rarely Pt feels they are or have been: No Immunizations Up To Date Tetanus Booster (TDap): Unknown PED Vaccines UTD: No Influenza Vaccine Up-to-Date: No; Not Current First/Initial COVID19 Vaccinat: September 2020 Second COVID19 Vaccination Octavio: October 2020 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: [employer] Seasonal Allergies Seasonal Allergies: No Past Medical History Surgery/Hospitalization HX: HYST, LAP MARLENI Surgeries: Yes (c/s x4, multiple eye sx, hip sx, lithrotripsy, ) Adenoidectomy, Section, Eye Surgery, Gallbladder, Orthopedic, Tonsillectomy Respiratory: Yes (bronchitis acute 2011, pna) Asthma Cardiac: No Neurological: Yes Headaches /Migraines Reproductive Disorders: Yes Female Reproductive Disorders: Polycystic Ovarian Dis Sexually Transmitted Disease: No HIV/AIDS: No Genitourinary: Yes (S/P LITHOTRIPSY) Bladder Infection, Kidney Stones Gastrointestinal: Yes (S/P MARLENI, gerd with ) Gastroesophageal Reflux, Chronic Constipation, Gall Bladder Disease Musculoskeletal: Yes (HIPS) Arthritis, Scoliosis Endocrine: No HEENT: Yes (GLASSES) Loss of Vision: Bilateral Hearing Impairment: Denies Cancer: No Psychosocial: Yes Anxiety, Depression Integumentary: Yes Eczema Blood Disorders: Yes (ANEMIA) Adverse Reaction/Blood Tranf: No (N/A) Family Medical History Reviewed Nursing Family Hx Patient reports no known family medical history. No Pertinent Family Hx Physical Exam Vital Signs Vital Signs - First Documented 04/04/22 08:52 Temp 36.2 Pulse 61 Resp 16 B/P (MAP) 110/73 (85) Capillary Refill : Height/Weight/BMI Height: 5'6.00" Weight: 183lbs. 0.0oz. 83.235195hh; 29.05 BMI Method:Stated General Appearance: WD/WN, no apparent distress HEENT: normal ENT inspection, pharynx normal Neck: non-tender, full range of motion, supple, normal inspection Respiratory: chest non-tender, lungs clear, normal breath sounds, no respir atory distress, no accessory muscle use Cardiovascular: regular rate, rhythm, no edema, no gallop, no JVD, no murmur Gastrointestinal: normal bowel sounds, soft, no organomegaly, other (Tenderness palpation right lower abdomen with voluntary guarding. No rebound tenderness. No mass organomegaly. No skin changes.) Extremities: normal range of motion, non-tender, normal inspection, no pedal edema, no calf tenderness, normal capillary refill Back: normal inspection, no CVA tenderness, no vertebral tenderness Neurologic/Psychiatric: alert, normal mood/affect, oriented x 3 Skin: normal color, warm/dry Lymphatic: no adenopathy Progress/Results/Core Measures Results/Orders Lab Results Laboratory Tests Test 04/04/22 09:01 04/04/22 09:06 Range/Units White Blood Count 4.6 4.3-11.0 10^3/uL Red Blood Count 4.72 3.80-5.11 10^6/uL Hemoglobin 13.1 11.5-16.0 g/dL Hematocrit 40 35-52 % Mean Corpuscular Volume 84 80-99 fL Mean Corpuscular Hemoglobin 28 25-34 pg Mean Corpuscular Hemoglobin Concent 33 32-36 g/dL Red Cell Distribution Width 13.2 10.0-14.5 % Platelet Count 220 130-400 10^3/uL Mean Platelet Volume 11.7 9.0-12.2 fL Immature Granulocyte % (Auto) 0 % Neutrophils (%) (Auto) 66 42-75 % Lymphocytes (%) (Auto) 26 12-44 % Monocytes (%) (Auto) 6 0-12 % Eosinophils (%) (Auto) 2 0-10 % Basophils (%) (Auto) 1 0-10 % Neutrophils # (Auto) 3.0 1.8-7.8 10^3/uL Lymphocytes # (Auto) 1.2 1.0-4.0 10^3/uL Monocytes # (Auto) 0.3 0.0-1.0 10^3/uL Eosinophils # (Auto) 0.1 0.0-0.3 10^3/uL Basophils # (Auto) 0.0 0.0-0.1 10^3/uL Immature Granulocyte # (Auto) 0.0 0.0-0.1 10^3/uL Sodium Level 137 135-145 MMOL/L Potassium Level 4.1 3.6-5.0 MMOL/L Chloride Level 107 98-107 MMOL/L Carbon Dioxide Level 23 21-32 MMOL/L Anion Gap 7 5-14 MMOL/L Blood Urea Nitrogen 6 L 7-18 MG/DL Creatinine 0.79 0.60-1.30 MG/DL Estimat Glomerular Filtration Rate 102 BUN/Creatinine Ratio 8 Glucose Level 92 70-105 MG/DL Calcium Level 9.2 8.5-10.1 MG/DL Corrected Calcium 9.0 8.5-10.1 MG/DL Total Bilirubin 0.5 0.1-1.0 MG/DL Aspartate Amino Transf (AST/SGOT) 18 5-34 U/L Alanine Aminotransferase (ALT/SGPT) 7 0-55 U/L Alkaline Phosphatase 65 40-136 U/L Total Protein 7.7 6.4-8.2 GM/DL Albumin 4.3 3.2-4.5 GM/DL Lipase 22 8-78 U/L Urine Color YELLOW Urine Clarity CLEAR Urine pH 6.0 5-9 Urine Specific [place] >=1.030 1.016-1.022 Urine Protein 1+ H NEGATIVE Urine Glucose (UA) NEGATIVE NEGATIVE Urine Ketones NEGATIVE NEGATIVE Urine Nitrite NEGATIVE NEGATIVE Urine Bilirubin NEGATIVE NEGATIVE Urine Urobilinogen 0.2 < = 1.0 MG/DL Urine Leukocyte Esterase NEGATIVE NEGATIVE Urine RBC (Auto) NEGATIVE NEGATIVE Urine RBC NONE /HPF Urine WBC 0-2 /HPF Urine Squamous Epithelial Cells 5-10 /HPF Urine Crystals NONE /LPF Urine Bacteria FEW H /HPF Urine Casts NONE /LPF Urine Mucus SMALL H /LPF Urine Culture Indicated NO My Orders Orders - JIE PEÑA DO Comprehensive Metabolic Panel (04/04/22 08:56) Lipase (04/04/22 08:56) Ua Culture If Indicated (04/04/22 08:56) Cbc With Automated Diff (04/04/22 08:56) Ct Abdomen/Pelvis W (04/04/22 08:56) Ondansetron Injection (Zofran Injectio (04/04/22 09:00) Fentanyl Inj (Sublimaze Injection) (04/04/22 09:00) Iohexol Injection (Omnipaque 350 Mg/Ml 1 (04/04/22 09:00) Received Contrast (Hold Metformin- Contr (04/04/22 09:00) Ns (Ivpb) (Sodium Chloride 0.9% Ivpb Bag (04/04/22 09:00) Sodium Chloride Flush (Catheter Flush Sy (04/04/22 09:00) Ed Admission (Communication) (04/04/22 10:22) Medications Given in ED Current Medications Medications Dose Ordered Sig/Denia Route Start Time Stop Time Status Last Admin Dose Admin Fentanyl Citrate 50 mcg ONCE ONCE IVP 04/04/22 09:00 04/04/22 09:01 DC 04/04/22 09:17 50 MCG Iohexol 100 ml ONCE ONCE IV 04/04/22 09:00 04/04/22 09:01 DC 04/04/22 09:28 74 ML Ondansetron HCl 8 mg ONCE ONCE IVP 04/04/22 09:00 04/04/22 09:01 DC 04/04/22 09:16 8 MG Sodium Chloride 10 ml NEEDED PRN IV 04/04/22 09:00 04/04/22 11:48 DC 04/04/22 09:28 10 ML Sodium Chloride 100 ml ONCE ONCE IV 04/04/22 09:00 04/04/22 09:01 DC 04/04/22 09:28 80 ML Vital Signs/I&O 04/04/22 08:52 Temp 36.2 Pulse 61 Resp 16 B/P (MAP) 110/73 (85) Blood Pressure Mean: 85 Departure Communication (Admissions) Time/Spoke to Admitting Phy: 10:10 Dr. Loyola accepts admission. I will write bridge orders. Asked about antibiotics and he requests none be given. Patient is hemodynamically stable. She does have some significant right lower quadrant abdominal pain. CT scan reveals large appendix. Spoke with Dr. Loyola general surgery request admission. No antibiotics at this time. She will be admitted to his service in otherwise stable condition. Questions were sought and answered. Impression Primary Impression: Mucocele of appendix Additional Impression: Right lower quadrant abdominal pain Disposition: ADMITTED INPATIENT Condition: Stable Admissions Decision to Admit Reason: Admit from ER (General) Decision to Admit/Date: Apr 04, 2022 Time/Decision to Admit Time: 10:10 Departure-Patient Inst. Referrals: [facility] (PCP/Family) Primary Care Physician JIE PEÑA DO Apr 04, 2022 09:02
[2022-04-04 09:08] LABS: BASOPHILS % (AUTO) 1 % (0-10); EOSINOPHILS # (AUTO) 0.1 10^3/uL (0.0-0.3); EOSINOPHILS % (AUTO) 2 % (0-10); HEMATOCRIT 40 % (35-52); HEMOGLOBIN 13.1 g/dL (11.5-16.0); LYMPHOCYTES # (AUTO) 1.2 10^3/uL (1.0-4.0); LYMPHOCYTES % (AUTO) 26 % (12-44); MEAN CORPUSCULAR HEMOGLOBIN 28 pg (25-34); MEAN CORPUSCULAR HGB CONC 33 g/dL (32-36); MEAN CORPUSCULAR VOLUME 84 fL (80-99); MEAN PLATELET VOLUME 11.7 fL (9.0-12.2); MONOCYTES # (AUTO) 0.3 10^3/uL (0.0-1.0); MONOCYTES % (AUTO) 6 % (0-12); NEUTROPHILS % (AUTO) 66 % (42-75); PLATELET COUNT 220 10^3/uL (130-400); WHITE BLOOD COUNT 4.6 10^3/uL (4.3-11.0)
[2022-04-04 09:12] LABS: BILIRUBIN,URINE NEGATIVE (NEGATIVE); CLARITY,URINE CLEAR; COLOR,URINE YELLOW; GLUCOSE, URINE (UA) NEGATIVE (NEGATIVE); KETONES,URINE NEGATIVE (NEGATIVE); LEUKOCYTE ESTERASE ,URINE NEGATIVE (NEGATIVE); NITRITE,URINE NEGATIVE (NEGATIVE); PROTEIN,URINE 1+ (NEGATIVE)
[2022-04-04 09:23] LABS: BACTERIA,URINE FEW /HPF; WBC,URINE 0-2 /HPF
[2022-04-04 09:41] LABS: ALBUMIN 4.3 GM/DL (3.2-4.5)
[2022-04-04 09:42] LABS: POTASSIUM 4.1 MMOL/L (3.6-5.0)
[2022-04-04 09:43] LABS: CALCIUM 9.2 MG/DL (8.5-10.1)
[2022-04-04 09:44] LABS: TOTAL PROTEIN 7.7 GM/DL (6.4-8.2)
[2022-04-04 09:46] LABS: BILIRUBIN,TOTAL 0.5 MG/DL (0.1-1.0)
[2022-04-04 09:47] LABS: CREATININE SERUM 0.79 MG/DL (0.60-1.30)
--- NOTE | 2022-04-04 10:01 | Diagnostic Imaging Report ---
PROCEDURE: CT abdomen and pelvis with contrast. TECHNIQUE: Multiple contiguous axial images were obtained through the abdomen and pelvis after administration of intravenous contrast. Auto Exposure Controls were utilized during the CT exam to meet ALARA standards for radiation dose reduction. All CT scans use one or more of the following dose optimizing techniques: automated exposure control, MA and/or KvP adjustment based on patient size and exam type or iterative reconstruction. INDICATION: Right lower quadrant abdominal pain. Correlation is made with prior CT from 09/08/2019. FINDINGS: Lung bases are clear. No discrete liver mass is detected. Gallbladder surgically absent. There is no biliary ductal dilatation. Pancreas and spleen are unremarkable. No adrenal mass is detected. Previously noted nonobstructing calculus is again noted lower pole right kidney. There is no hydronephrosis. Aorta is nonaneurysmal. Bowel loops are normal caliber. There is moderate stool throughout the colon. There is a somewhat tubular low attenuation mass in the right lower quadrant in the region of the cecum. This measures 5.8 cm cephalocaudal by 3.1 cm transverse. The appendix is not well-visualized and possibility of an appendiceal mucocele cannot be excluded. Trace free fluid in the pelvis is noted. Bladder is decompressed. IMPRESSION: There is a tubular low-attenuation mass in the right lower quadrant, suspicious for an appendiceal mucocele. No other significant abnormality is seen apart from nonobstructing right renal calculi. Dictated by: Dictated on workstation # [id number]
--- NOTE | 2022-04-04 11:11 | Consultation - Surgery ---
CESAR ASHLEY 04/04/22 1111: History of Present Illness History of Present Illness Patient Consulted On(cherelle/time) 04/04/22 11:04 Date Seen by Provider: Apr 04, 2022 Time Seen by Provider: 11:04 Reason for Visit: RLQ Pain History of Present Illness 31 yo female with hx of PCOS presents to ED for RLQ pain. Pt is hemodynamically stable. Pt reports having a hx of dull RLQ pain for the past 5 years. Pt notes that for the last 2 days the pain has gotten worse. Pt describes pain as sharp, shooting pressure that radiates from right flank to RLQ. Pain above a 10/10 at its worse. 5 episodes of bilious vomiting without blood earlier today. Reports nausea, chills, and decreased appetite. No bowel movement for the last 2 days. Bending over makes the pain worse and extending back and putting pressure on L4 region makes pain better. Denies any fever, CP, SOB. Denies dizziness, light headness. Denies any urinary frequency, urgency, or dysuria. Pt has not had anything to eat since 04/03 at 20:00 and her last drink was Dr. Pepper this morning around 05:00 04/04 CT abdominal/pelvis - Tubular low-attenuation mass in the right lower quadrant, suspicious for an appendiceal mucocele. No other significant abnormality is seen apart from nonobstructing right renal calculi. Allergies and Home Medications Allergies Coded Allergies: Penicillins (Unverified Allergy, Severe, ANAPHYLAXIS, 12/30/17) aripiprazole (Unverified Allergy, Mild, HIVES, 12/30/17) cephalexin (Verified Allergy, Unknown, RASH, 05/25/18) walnut (Verified Allergy, Unknown, Anaphylaxis, 01/07/21) Patient Home Medication List Home Medication List Reviewed: Yes Vit No.124/Iron/FA ( Vitamin Tablet) 1 Each Tablet, 1 EACH PO DAILY, (Reported) Entered as Reported by: ADELAIDA DOLAN on 08/22/18 5310 Last Action: Reviewed Discontinued Medications Acetaminophen (Acetaminophen) 500 Mg Tablet, 1,000 MG PO Q8HR Discontinued Reason: No Longer Taking Prescribed by: DONALD MURRY on 03/12/21 1309 Last Action: Discontinued Docusate Sodium (Dok) 100 Mg Capsule, 100 MG PO BID Discontinued Reason: No Longer Taking Prescribed by: DONALD MURRY on 03/12/21 1309 Last Action: Discontinued Ibuprofen (Ibu) 600 Mg Tablet, 600 MG PO Q6HR Discontinued Reason: No Longer Taking Prescribed by: DONALD MURRY on 03/12/21 1309 Last Action: Discontinued Oxycodone Hcl (Oxyir Tablet) 5 Mg Tab, 5 MG PO Q4HR PRN for PAIN-SEE DOSE INSTRUCTIONS Discontinued Reason: No Longer Taking Prescribed by: DONALD MURRY on 03/12/21 1310 Last Action: Discontinued Past Mggbamt-Xytiqi-Djiywf Hx Patient Social History Former Smoker, Quit: Jan 08, 2012 Type Used: Electronic/Vapor 2nd Hand Smoke Exposure: No Recent Hopitalizations: No Alcohol Use?: Yes Have you traveled recently?: No Immunizations Up To Date Tetanus Booster (TDap): Unknown PED Vaccines UTD: No Date of Influenza Vaccine: Jul 10, 2020 Seasonal Allergies Seasonal Allergies: No Surgeries History of Surgeries: Yes (c/s x4, multiple eye sx, hip sx, lithrotripsy, ) Surgeries: Adenoidectomy, Section, Eye Surgery, Gallbladder, Orthopedic, Tonsillectomy Respiratory History of Respiratory Disorde: Yes (bronchitis acute 2011, pna) Respiratory Disorders: Asthma Cardiovascular History of Cardiac Disorders: No Neurological History of Neurological Disord: Yes Neurological Disorders: Headaches /Migraines Reproductive System Hx Reproductive Disorders: Yes Sexually Transmitted Disease: No HIV/AIDS: No Female Reproductive Disorders: Polycystic Ovarian Dis Genitourinary History of Genitourinary Disor: Yes (S/P LITHOTRIPSY) Genitourinary Disorders: Bladder Infection, Kidney Stones Gastrointestinal History of Gastrointestinal Di: Yes (S/P MARLENI, gerd with ) Gastrointestinal Disorders: Gastroesophageal Reflux, Chronic Constipation, Gall Bladder Disease Musculoskeletal History of Musculoskeletal Dis: Yes (HIPS) Musculoskeletal Disorders: Arthritis, Scoliosis Endocrine History of Endocrine Disorders: No HEENT History of HEENT Disorders: Yes (GLASSES) Loss of Vision: Bilateral Hearing Impairment: Denies Cancer History of Cancer: No Psychosocial History of Psychiatric Problem: Yes Behavioral Health Disorders: Anxiety, Depression Integumentary History of Skin or Integumenta: Yes Skin/Integumentary Disorders: Eczema Blood Transfusions History of Blood Disorders: Yes (ANEMIA) Adverse Reaction to a Blood Tr: No (N/A) Family Medical History Significant Family History: No Pertinent Family Hx, Cancer (Maternal side significant for breast, pancreatic, and ovarian CA) Family Medial History: Patient reports no known family medical history. Review of Systems-General Constitutional: chills EENTM: no symptoms reported Respiratory: no symptoms reported Cardiovascular: no symptoms reported Gastrointestinal: RLQ, abdominal pain, loss of appetite, nausea, vomiting Genitourinary: no symptoms reported : No Musculoskeletal: no symptoms reported Skin: no symptoms reported Psychiatric/Neurological: No Symptoms Reported Physical Exam-General Problems Physical Exam Vital Signs Vital Signs - First Documented 04/04/22 08:52 Temp 36.2 Pulse 61 Resp 16 B/P (MAP) 110/73 (85) Capillary Refill : General Appearance: WD/WN, no apparent distress Respiratory: normal breath sounds, no respiratory distress, no accessory muscle use Cardiovascular: normal peripheral pulses, regular rate, rhythm, no JVD, no murmur Gastrointestinal: normal bowel sounds, soft, no organomegaly, tenderness Extremities: no pedal edema Skin: normal color, warm/dry Data Review Labs Laboratory Tests 04/04/22 09:01: White Blood Count 4.6, Red Blood Count 4.72, Hemoglobin 13.1, Hematocrit 40, Mean Corpuscular Volume 84, Mean Corpuscular Hemoglobin 28, Mean Corpuscular Hemoglobin Concent 33, Red Cell Distribution Width 13.2, Platelet Count 220, Mean Platelet Volume 11.7, Immature Granulocyte % (Auto) 0, Neutrophils (%) (Auto) 66, Lymphocytes (%) (Auto) 26, Monocytes (%) (Auto) 6, Eosinophils (%) (Auto) 2, Basophils (%) (Auto) 1, Neutrophils # (Auto) 3.0, Lymphocytes # (Auto) 1.2, Monocytes # (Auto) 0.3, Eosinophils # (Auto) 0.1, Basophils # (Auto) 0.0, Immature Granulocyte # (Auto) 0.0, Sodium Level 137, Potassium Level 4.1, Chloride Level 107, Carbon Dioxide Level 23, Anion Gap 7, Blood Urea Nitrogen 6L , Creatinine 0.79, Estimat Glomerular Filtration Rate 102, BUN/Creatinine Ratio 8, Glucose Level 92, Calcium Level 9.2, Corrected Calcium 9.0, Total Bilirubin 0.5, Aspartate Amino Transf (AST/SGOT) 18, Alanine Aminotransferase (ALT/SGPT) 7, Alkaline Phosphatase 65, Total Protein 7.7, Albumin 4.3, Lipase 04/04/22 09:06: Urine Color YELLOW, Urine Clarity CLEAR, Urine pH 6.0, Urine Specific [place] >=1.030, Urine Protein 1+H, Urine Glucose (UA) NEGATIVE, Urine Ketones NEGATIVE, Urine Nitrite NEGATIVE, Urine Bilirubin NEGATIVE, Urine Urobilinogen 0.2, Urine Leukocyte Esterase NEGATIVE, Urine RBC (Auto) NEGATIVE, Urine RBC NONE, Urine WBC 0-2, Urine Squamous Epithelial Cells 5-10, Urine Crystals NONE, Urine Bacteria FEWH, Urine Casts NONE, Urine Mucus SMALLH, Urine Culture Indicated NO Assessment/Plan Assessment/Plan Assessment/Plan Pt with RLQ pain. CT of abd/pelvis shows Tubular low-attenuation mass in the right lower quadrant, suspicious for an appendiceal mucocele. No other significant abnormality is seen apart from nonobstructing right renal calculi Pt admitted. NPO Possible Laparoscopic appendectomy HAKEEM SOTO DO 04/04/22 1606: History of Present Illness History of Present Illness History of Present Illness CC: rlq abdominal pain patient is a 31 year old female with rlq pain that she states has been present for 5 years. Over the last 2 days has worsened. Sharp/pressure type pain moves to right flank. 03/31 pain. Has nausea and emesis due to pain. Had ct scan demonstrating tubular structure rlq possible appendiceal mucocele and right renal calculi nonobstructing. Allergies and Home Medications Allergies Coded Allergies: Penicillins (Unverified Allergy, Severe, ANAPHYLAXIS, 12/30/17) aripiprazole (Unverified Allergy, Mild, HIVES, 12/30/17) cephalexin (Verified Allergy, Unknown, RASH, 05/25/18) walnut (Verified Allergy, Unknown, Anaphylaxis, 01/07/21) Patient Home Medication List Home Medication List Reviewed: Yes Vit No.124/Iron/FA ( Vitamin Tablet) 1 Each Tablet, 1 EACH PO DAILY, (Reported) Entered as Reported by: ADELAIDA DOLAN on 08/22/18 1450 Last Action: Reviewed Discontinued Medications Acetaminophen (Acetaminophen) 500 Mg Tablet, 1,000 MG PO Q8HR Discontinued Reason: No Longer Taking Prescribed by: DONALD MURRY on 03/12/21 1309 Last Action: Discontinued Docusate Sodium (Dok) 100 Mg Capsule, 100 MG PO BID Discontinued Reason: No Longer Taking Prescribed by: DONALD MURRY on 03/12/21 1309 Last Action: Discontinued Ibuprofen (Ibu) 600 Mg Tablet, 600 MG PO Q6HR Discontinued Reason: No Longer Taking Prescribed by: DONALD MURRY on 03/12/21 1309 Last Action: Discontinued Oxycodone Hcl (Oxyir Tablet) 5 Mg Tab, 5 MG PO Q4HR PRN for PAIN-SEE DOSE INSTRUCTIONS Discontinued Reason: No Longer Taking Prescribed by: DONALD MURRY on 03/12/21 1310 Last Action: Discontinued Past Qvikwri-Eyndte-Rlrhyh Hx Reviewed Nursing Assessment Reviewed/Agree w Nursing PMH: Yes Family Medical History Significant Family History: Cancer (Maternal side significant for breast, pancreatic, and ovarian CA) Family Medial History: Patient reports no known family medical history. Review of Systems-General Constitutional: chills; No diaphoresis EENTM: No blurred vision, No double vision Respiratory: No cough, No dyspnea on exertion Cardiovascular: No chest pain, No palpitations Gastrointestinal: RLQ, abdominal pain (RLQ), loss of appetite, nausea, vomiting Genitourinary: No decreased output, No discharge Musculoskeletal: back pain; No joint pain Skin: No change in color, No change in hair/nails Psychiatric/Neurological: Denies Anxiety, Denies Depressed, Denies Emotional Problems All Other Systems Reviewed Negative Unless Noted: Yes (Negative excepted noted.) Physical Exam-General Problems Physical Exam General Appearance: WD/WN, no apparent distress HEENT: PERRL/EOMI, normal ENT inspection Neck: non-tender, supple Respiratory: chest non-tender, no respiratory distress, no accessory muscle use Cardiovascular: regular rate, rhythm, no JVD Gastrointestinal: soft, tenderness (rlq) Rectal: deferred Back: no CVA tenderness, no vertebral tenderness Extremities: non-tender, no pedal edema Neurologic/Psychiatric: alert, normal mood/affect, oriented x 3 Skin: normal color, warm/dry Lymphatic: no adenopathy Assessment/Plan Assessment/Plan Assessment/Plan rlq abdominal pain rlq tubular mass-possible appendiceal mucocele nausea and vomiting reviewed ct scan and discussed with patient risks and benefits of diagnostic laparoscopy all other indicated procedures depending on findings. she and her family present with her understand and wish to proceed. NPO IV hydration Clinda/Flagyl preop To oR Supervisory-Addendum Brief Verification & Attestation Participated in pt care: history, MDM, physical Personally performed: exam, history, MDM, supervision of care Care discussed with: Medical Student Procedures: n/a Results interpretation: Verified all documentation Verification and Attestation of Medical Student E/M Service A medical student performed and documented this service in my presence. I reviewed and verified all information documented by the medical student and made modifications to such information, when appropriate. I personally performed the physical exam and medical decision making. Hakeem Soto, Apr 04, 2022,16:06 CESAR ASHLEY Apr 04, 2022 11:11 HAKEEM SOTO DO Apr 04, 2022 16:06
[2022-04-04] MEDS ORDERED: CLINDAMYCIN 600 MG/50 ML IVPB 50 ML IV NR (11:45)
[2022-04-04] MEDS ORDERED: metroNIDAZOLE 500MG/100ML IVPB 100 ML IV NR (11:45)
[2022-04-04] MEDS ORDERED: NS IV 1000 ML 1,000 ML IV SCH (12:00)
[2022-04-04] MEDS ORDERED: fentaNYL INJ 100 MCG/2 ML AMP IV PRN (12:00)
[2022-04-04] MEDS ORDERED: ONDANSETRON 4 MG/2 ML (SDV) Z0FRAN IV PRN (12:00)
[2022-04-04] MEDS ORDERED: BUP/EPI 0.5% 1:200,000 (MARCAINE) 10ML VIAL IJ ONE (17:18)
[2022-04-04] MEDS ORDERED: NEOSTIGMINE (BLOXIVERZ ) 1 MG/1ML 10 ML VIAL ONE (17:19)
[2022-04-04] MEDS ORDERED: GLYCOPYRROLATE 0.2 MG/ML (ROBINUL) 2 ML VIAL ONE (17:36)
[2022-04-04] MEDS ORDERED: LIDOCAINE PF 2% 5 ML (XYLOCAINE) VIAL ONE (17:36)
[2022-04-04] MEDS ORDERED: fentaNYL INJ 100 MCG/2 ML AMP ONE (17:36)
[2022-04-04] MEDS ORDERED: ONDANSETRON 4 MG/2 ML (SDV) Z0FRAN ONE (17:36)
[2022-04-04] MEDS ORDERED: proPOfol 200 MG/20 ML (DIPRIVAN) VIAL IV ONE (17:36)
[2022-04-04] MEDS ORDERED: MIDAZOLAM 2 MG/2 ML (VERSED) VIAL ONE (17:36)
[2022-04-04] MEDS ORDERED: ROCURONIUM 10 MG/ML 5 ML SYRINGE IV ONE (17:36)
[2022-04-04] MEDS ORDERED: metroNIDAZOLE 500MG/100ML IVPB 100 ML ONE (17:37)
[2022-04-04] MEDS ORDERED: CLINDAMYCIN 600 MG/50 ML IVPB 50 ML IV ONE (17:37)
[2022-04-04] MEDS: LACTATED RINGERS 1,000 ML IV PRN ×2 (18:07→19:10)
[2022-04-04] MEDS ORDERED: SUCCINYLCHOLINE INJ 100 MG/5 ML SYR/VIAL ONE (18:23)
[2022-04-04] MEDS ORDERED: SUGAMMADEX 500 MG/5 ML VIAL (BRIDION) IV ONE (18:32)
[2022-04-04] MEDS ORDERED: ACHD5005 PO (18:36)
[2022-04-04] MEDS ORDERED: DOCU-143 PO (18:36)
--- NOTE | 2022-04-04 18:39 | Discharge Inst-Simple/Standard ---
Discharge Inst-Standard Discharge Medications New, Converted or Re-Newed RX: Transmitted to Pharmacy Patient Instructions/Follow Up Plan of Care/Instructions/FU: 2 weeks amanda Activity as Tolerated: No Discharge Diet: Regular Diet Other Inst to Patient Follow up Appt: Make appointment for 2 week. Instructions: No lifting greater than 10 pounds. No strenuous activity. May shower in 24 hours, no tub bath or soaking. Use incentive spirometer at home as directed. No Smoking Skin/Wound Care: You can remove bandaids in 24 hours. Then keep areas clean and dry. Symptoms to Report: Appetite Changes, Extremity Discoloration, Numbness/Tingling, Swelling Increased, Bleeding Excessive, Eyesight Changes, Pain Increased, Urine Color Change, Constipation(Persistent), Fever over 101 degree F, Pain/Pressure in chest, Urinating Difficulty, Cough Up/Vomit Blood, Heart Beat Irreg/Pounding, Pain/Pressure in jaw, Vaginal Bleeding Increase, Cramps in feet or legs, Lightheadedness, Pain/Pressure in shoulder, Diarrhea(Persistent), Memory Changes Suddenly, Questions/Concerns, Weight gain consecutive days, Dizziness/Fainting, Nausea/Vomiting, Shortness of Breath, Weight gain over 2 pounds If questions or concerns contact your physician Or seek help at emergency department. TONY SOTO DO Apr 04, 2022 18:38
[2022-04-04] MEDS ORDERED: DESFLURANE (SUPRANE) 15 ML INHAL SOLN ONE (18:42)
--- NOTE | 2022-04-04 18:51 | Anesthesia-General Post-Op ---
General Patient Condition Mental Status/LOC: Same as Preop Cardiovascular: Satisfactory Nausea/Vomiting: Absent Respiratory: Satisfactory Pain: Controlled Complications: Absent Post Op Complications Complications None Follow Up Care/Instructions Patient Instructions None needed. Anesthesia/Patient Condition Patient Condition Patient is doing well, no complaints, stable vital signs, no apparent adverse anesthesia problems. No complications reported per nursing. VIRI LUIS DO Apr 04, 2022 18:51
[2022-04-04] MEDS ORDERED: ONDANSETRON 4 MG/2 ML (SDV) Z0FRAN IVP PRN (19:00)
[2022-04-04] MEDS ORDERED: HYDROmorphone 2 MG/ML VIAL (DILAUDID) IV ONE (19:00)
[2022-04-04] MEDS ORDERED: morphine INJ 10 MG/ML 1ML (SYR OR VIAL) IVP ONE (19:00)
--- NOTE | 2022-04-06 18:20 | OPERATIVE REPORT ---
DATE OF SERVICE: 04/04/2022 PREOPERATIVE DIAGNOSES: Right lower quadrant abdominal pain, right tubular mass, possible appendiceal mucocele. POSTOPERATIVE DIAGNOSIS: Right ovarian torsion. PROCEDURES PERFORMED: Diagnostic laparoscopy with right oophorectomy. SURGEON: Tony Loyola DO ANESTHESIA: General. ESTIMATED BLOOD LOSS: Minimal. COMPLICATIONS: None. INDICATIONS FOR PROCEDURE: The patient is a 31-year-old female, who presented to the Emergency Department with right lower quadrant abdominal pain. She was found to have imaging, which demonstrated tubular structure that was suspected to be an appendiceal mucocele. She was discussed risks and benefits of diagnostic laparoscopy and all other indicated procedures. She understands and wishes to proceed along with her family. Consent was signed in the chart. DESCRIPTION OF PROCEDURE: The patient was taken to the operating suite. She was prepped and draped in a sterile fashion. A timeout was performed. Local anesthetic was infiltrated at the umbilicus and an 11 blade scalpel was used to make a small skin incision. Cautery was used to dissect down through the subcutaneous tissue of the fascia, which was scored in and then opened. A 0 Vicryl was placed in a [id number] fashion for closure at the end of the case. A alvares trocar with a 12 mm trocar was inserted and pneumoperitoneum was achieved. The abdomen was inspected. There was a purplish blue structure in the right lateral portion of the abdomen, which was visualized just lateral to the ascending colon. A 5 mm trocar was placed under direct visualization of the laparoscope in the suprapubic region and a 5 mm trocar was placed in the left lower quadrant under direct visualization. The pelvis was inspected. Trace amount of fluid down in the pelvis. No other pathology noted. The right gutter just lateral to the ascending colon purplish structure, which was the ovary, had torsed causing it to become ischemic. This was nonviable at this time. Gynecology is not available at this time. The ovary was grasped and retracted. An Endo-FRANCISCO JAVIER 2.5 stapler was then fired across at the area where it had been torsed. This was removed. It was placed in an Endobag. The staple line was inspected and hemostasis was achieved. No other pathology noted in the pelvis or abdomen. The abdomen was then desufflated and the trocars were removed. The Endobag was removed through the 12 mm trocar site, but it had to be extended in order for it to be removed. The fascia had to be extended in order for it to be removed. Once removed, the fascia was grasped and fascia was closed in a running fashion using 0 Vicryl. The skin was then closed using kurt. The area was washed and dried and sterile bandage were applied. The patient tolerated the procedure well without any complications. She was taken to the recovery room in a stable condition. Job ID: [id number] DocumentID: [id number] Dictated Date: 04/06/2022 12:02:21 Attendant Honor Bar Date: 04/06/2022 18:19:36 Dictated By: TONY LOYOLA DO
== END 2022-04-04 21:10 | disposition home or self-care (01) | DRG 743 ==
LOC: EDUNIT# 08:43 → ER 08:44 → 4TH 10:23 → EDLOC 10:23
PROVIDERS: ADMIT Surgery; ATTEND Surgery
PROC: 0UT04ZZ Resection of Right Ovary, Percutaneous Endoscopic Approach (ICD-10-PCS; principal; 2022-04-04 17:36)
DX: N83.511 Torsion of right ovary and ovarian pedicle (principal); K38.8 Other specified diseases of appendix; G43.909 Migraine, unspecified, not intractable, without status migrainosus; K21.9 Gastro-esophageal reflux disease without esophagitis; M19.90 Unspecified osteoarthritis, unspecified site; M41.9 Scoliosis, unspecified; F41.9 Anxiety disorder, unspecified; F32.A Depression, unspecified; J45.909 Unspecified asthma, uncomplicated; E28.2 Polycystic ovarian syndrome
CPT/HCPCS: 36415; 74177; 80053; 81000; 83690; 85025; 87081

== ENCOUNTER 2022-08-29 11:37 | Emergency (ER) | payer MEDICAID ==
[~2022-08-29] VITALS: Ht 167 cm; Wt 70.0 kg
[~2022-08-29 11:37] MED LIST changes: +ACHD5005 PO; +DOCU-143 PO
--- NOTE | 2022-08-29 12:43 | ED Abdominal Pain ---
General Chief Complaint: Abdominal/GI Problems Stated Complaint: ABD PAIN Nursing Triage Note: PT AMB TO TRIAGE, PT CO OF ABD PAIN 8/10 ACROSS FRONT OF ABD, PT CO OF NAUSEA. Source of Information: Patient Exam Limitations: No Limitations (SYED BRADFORD) History of Present Illness Date Seen by Provider: Aug 29, 2022 Time Seen by Provider: 12:41 Initial Comments Patient is a 32-year-old female who presents to ED with abdominal pain. Pain started this morning around 430 when she woke up. She reports a sharp pain to her right upper quadrant radiating to her left lower quadrant. Pain has been constant without any radiation to her back. She states she vomited out in the waiting room 1 time. Denies any diarrhea. History of partial hysterectomy, right orchiectomy secondary ovarian torsion, cholecystectomy. She denies of any urinary symptoms such as frequent urination, hematuria, increased urine frequency. Denies taking thing for pain at home. Denies chest pain, shortness of breath, cough, fever. She does not appear in acute distress on arrival (SYED BRADFORD) Allergies and Home Medications Allergies Coded Allergies: Penicillins (Unverified Allergy, Severe, ANAPHYLAXIS, 12/30/17) aripiprazole (Unverified Allergy, Mild, HIVES, 12/30/17) cephalexin (Verified Allergy, Unknown, RASH, 05/25/18) walnut (Verified Allergy, Unknown, Anaphylaxis, 01/07/21) Patient Home Medication List Home Medication List Reviewed: Yes (SYED BRADFORD) Docusate Sodium (Colace) 100 Mg Capsule, 100 MG PO BID Prescribed by: TONY SOTO on 04/04/221835 Hydrocodone/Acetaminophen (Hydrocodone-Acetamin 5-325 mg) 5 Mg-325 Mg Tablet, 1 EACH PO Q4H PRN for PAIN-MODERATE (5-7) Prescribed by: TONY SOTO on 04/04/221836 Vit No.124/Iron/FA ( Vitamin Tablet) 1 Each Tablet, 1 EACH PO DAILY, (Reported) Entered as Reported by: ADELAIDA DOLAN on 08/22/18 0950 Review of Systems Review of Systems Constitutional: No chills, No diaphoresis, No malaise EENTM: No Double Vision, No Eye Pain Respiratory: Denies Cough Cardiovascular: Denies Chest Pain Gastrointestinal: Abdominal Pain; Denies Diarrhea; Nausea, Vomiting Genitourinary: Denies Burning, Denies Discharge, Denies Drainage, Denies Frequency, Denies Flank Pain Musculoskeletal: No back pain, No gout Skin: No change in color, No change in hair/nails (SYED BRADFORD) All Other Systems Reviewed Negative Unless Noted: Yes (SYED BRADFORD) Past Rmobwgy-Awlmya-Lzvcxb Hx Patient Social History Tobacco Use?: No Use of E-Cig and/or Vaping dev: Yes E-Cig or Vaping type used: Nicotine Use of E-Cig and/or Vaping Cliff: Current Everyday User Substance use?: No Alcohol Use?: Yes Alcohol type: Wine Alcohol Frequency: Once in a while Pt feels they are or have been: No (SYED BRADFORD) Immunizations Up To Date Tetanus Booster (TDap): Unknown PED Vaccines UTD: No First/Initial COVID19 Vaccinat: September 2020 Second COVID19 Vaccination Octavio: October 2020 Third COVID19 Vaccination Date: September 2020 (SYED BRADFORD) Seasonal Allergies Seasonal Allergies: No (SYED BRADFORD) Past Medical History Surgery/Hospitalization HX: HYST, LAP MARLENI, 4 C/SECTION , EYE SX, RIGHT HIP SX Surgeries: Yes (c/s x4, multiple eye sx, hip sx, lithrotripsy, ) Adenoidectomy, Section, Eye Surgery, Gallbladder, Orthopedic, Tonsillectomy Respiratory: Yes (bronchitis acute 2011, pna) Asthma Currently Using CPAP: No Currently Using BIPAP: No Cardiac: No Neurological: Yes Headaches /Migraines Reproductive Disorders: Yes Female Reproductive Disorders: Polycystic Ovarian Dis Sexually Transmitted Disease: No HIV/AIDS: No Genitourinary: Yes (S/P LITHOTRIPSY) Bladder Infection, Kidney Stones Gastrointestinal: Yes (S/P MARLENI, gerd with ) Gastroesophageal Reflux, Chronic Constipation, Gall Bladder Disease Musculoskeletal: Yes (HIPS) Arthritis, Scoliosis Endocrine: No HEENT: Yes (GLASSES) Loss of Vision: Bilateral Hearing Impairment: Denies Cancer: No Psychosocial: Yes Anxiety, Depression Integumentary: Yes Eczema Blood Disorders: Yes (ANEMIA) Adverse Reaction/Blood Tranf: No (N/A) (SYED BRADFORD) Family Medical History Patient reports no known family medical history. Cancer (SYED BRADFORD) Physical Exam Vital Signs Vital Signs - First Documented 08/29/22 11:55 Temp 36.8 Pulse 78 Resp 18 B/P (MAP) 107/73 (84) Pulse Ox 97 (DINORA EGAN MD) Vital Signs Capillary Refill : Less Than 3 Seconds (SYED BRADFORD) Height/Weight/BMI Height: 5'6.00" Weight: 183lbs. 0.0oz. 83.378684xw; 25.00 BMI Method:Stated General Appearance: WD/WN, no apparent distress HEENT: PERRL/EOMI, normal ENT inspection, TMs normal, pharynx normal Neck: non-tender, full range of motion, supple Respiratory: chest non-tender, lungs clear, normal breath sounds, no respiratory distress, no accessory muscle use Cardiovascular: regular rate, rhythm, no edema, no gallop, no JVD Gastrointestinal: normal bowel sounds, soft, no organomegaly, no pulsatile mass, other (Left-sided abdominal tenderness, right upper quadrant tenderness.) Extremities: normal range of motion, non-tender, normal inspection, no pedal edema Back: normal inspection, no CVA tenderness Neurologic/Psychiatric: stator tester II-XII nml as tested, no motor/sensory deficits, alert, normal mood/affect, oriented x 3 Skin: normal color, warm/dry (SYED BRADFORD) Progress/Results/Core Measures Results/Orders Lab Results Laboratory Tests Test 08/29/22 12:25 08/29/22 12:59 Range/Units White Blood Count 7.5 4.3-11.0 10^3/uL Red Blood Count 4.96 3.80-5.11 10^6/uL Hemoglobin 13.7 11.5-16.0 g/dL Hematocrit 42 35-52 % Mean Corpuscular Volume 84 80-99 fL Mean Corpuscular Hemoglobin 28 25-34 pg Mean Corpuscular Hemoglobin Concent 33 32-36 g/dL Red Cell Distribution Width 13.1 10.0-14.5 % Platelet Count 181 130-400 10^3/uL Mean Platelet Volume 11.7 9.0-12.2 fL Immature Granulocyte % (Auto) 0 % Neutrophils (%) (Auto) 69 42-75 % Lymphocytes (%) (Auto) 23 12-44 % Monocytes (%) (Auto) 6 0-12 % Eosinophils (%) (Auto) 2 0-10 % Basophils (%) (Auto) 1 0-10 % Neutrophils # (Auto) 5.2 1.8-7.8 10^3/uL Lymphocytes # (Auto) 1.7 1.0-4.0 10^3/uL Monocytes # (Auto) 0.4 0.0-1.0 10^3/uL Eosinophils # (Auto) 0.1 0.0-0.3 10^3/uL Basophils # (Auto) 0.0 0.0-0.1 10^3/uL Immature Granulocyte # (Auto) 0.0 0.0-0.1 10^3/uL Sodium Level 138 135-145 MMOL/L Potassium Level 3.8 3.6-5.0 MMOL/L Chloride Level 106 98-107 MMOL/L Carbon Dioxide Level 24 21-32 MMOL/L Anion Gap 8 5-14 MMOL/L Blood Urea Nitrogen 9 7-18 MG/DL Creatinine 0.78 0.60-1.30 MG/DL Estimat Glomerular Filtration Rate 103 BUN/Creatinine Ratio 12 Glucose Level 82 70-105 MG/DL Calcium Level 9.4 8.5-10.1 MG/DL Corrected Calcium 9.0 8.5-10.1 MG/DL Total Bilirubin 0.4 0.1-1.0 MG/DL Aspartate Amino Transf (AST/SGOT) 14 5-34 U/L Alanine Aminotransferase (ALT/SGPT) 11 0-55 U/L Alkaline Phosphatase 71 40-136 U/L Total Protein 7.9 6.4-8.2 GM/DL Albumin 4.5 3.2-4.5 GM/DL Lipase 32 8-78 U/L Urine Color YELLOW Urine Clarity CLEAR Urine pH 6.0 5-9 Urine Specific [place] 1.025 H 1.016-1.022 Urine Protein NEGATIVE NEGATIVE Urine Glucose (UA) NEGATIVE NEGATIVE Urine Ketones NEGATIVE NEGATIVE Urine Nitrite NEGATIVE NEGATIVE Urine Bilirubin NEGATIVE NEGATIVE Urine Urobilinogen 0.2 < = 1.0 MG/DL Urine Leukocyte Esterase NEGATIVE NEGATIVE Urine RBC (Auto) NEGATIVE NEGATIVE Urine RBC NONE /HPF Urine WBC NONE /HPF Urine Squamous Epithelial Cells RARE /HPF Urine Crystals NONE /LPF Urine Bacteria NEGATIVE /HPF Urine Casts NONE /LPF Urine Mucus NEGATIVE /LPF Urine Culture Indicated NO Urine Test NEGATIVE NEGATIVE (DINORA EGAN MD) Vital Signs/I&O 08/29/22 08/29/22 11:55 14:08 Temp 36.8 Pulse 78 Resp 18 B/P (MAP) 107/73 (84) 96/60 Pulse Ox 97 (DINORA EGAN MD) Blood Pressure Mean: 84 Departure Communication (PCP) Reviewed previous ER visits, surgical consult, lab testing. Patient presents ED with right side abdominal pain with radiation to the left lower quadrant. Pain started this morning. 1 episode of vomiting. On arrival no acute distress. Due to her current complaints CBC, CMP, lipase, urinalysis was ordered. Patient lab work was otherwise unremarkable. Started having increasing pain patient was given Toradol with some improvement. Due to location of pain near her right lower quadrant after reevaluation CT abdomen and pelvis was ordered. CT abdomen pelvis was negative for acute abnormality. 3 mm stone right kidney. She has no right CVA tenderness. no evidence of lesions, obstruction, colitis, diverticulitis. Patient pain and states she feels much better. She states she has been eating a lot of cheese which may be result from her pain. She states she feels much better at this time. Due to reassuring lab work and imaging patient will be discharged with strict return precautions. Discussed diet changes. She reports history of constipation. Discussed laxatives, high-fiber diet, fluids. Return precautions were discussed with patient. (SYED BRADFORD) Impression Primary Impression: Abdominal pain Disposition: 01 HOME, SELF-CARE Condition: Stable Departure-Patient Inst. Decision time for Depature: 14:01 (SYED BRADFORD) Referrals: LUISITO KENNEDY APRN (PCP) Primary Care Physician [facility] (Family) Primary Care Physician Patient Instructions: Severe Abdominal Pain, Adult (DC) Add. Discharge Instructions: If any worsening symptoms to return back to ED for further evaluation. Recommend healthy diet. Consider laxatives like Dulcolax. Drink plenty of fluids, high-fiber diet. All discharge instructions reviewed with patient and/or family. Voiced understanding. ATTENDING PHYSICIAN NOTE: I was physically present as attending physician in the emergency department during the care of this patient, but I was not directly involved in the decision making or delivery of care for this patient. (DINORA EGAN MD) SYED BRADFORD Aug 29, 2022 12:43 DINORA EGAN MD Aug 30, 2022 09:21
[2022-08-29 12:45] LABS: BASOPHILS % (AUTO) 1 % (0-10); EOSINOPHILS # (AUTO) 0.1 10^3/uL (0.0-0.3); EOSINOPHILS % (AUTO) 2 % (0-10); HEMATOCRIT 42 % (35-52); HEMOGLOBIN 13.7 g/dL (11.5-16.0); LYMPHOCYTES # (AUTO) 1.7 10^3/uL (1.0-4.0); LYMPHOCYTES % (AUTO) 23 % (12-44); MEAN CORPUSCULAR HEMOGLOBIN 28 pg (25-34); MEAN CORPUSCULAR HGB CONC 33 g/dL (32-36); MEAN CORPUSCULAR VOLUME 84 fL (80-99); MEAN PLATELET VOLUME 11.7 fL (9.0-12.2); MONOCYTES # (AUTO) 0.4 10^3/uL (0.0-1.0); MONOCYTES % (AUTO) 6 % (0-12); NEUTROPHILS # (AUTO) 5.2 10^3/uL (1.8-7.8); NEUTROPHILS % (AUTO) 69 % (42-75); PLATELET COUNT 181 10^3/uL (130-400); WHITE BLOOD COUNT 7.5 10^3/uL (4.3-11.0)
[2022-08-29] MEDS ORDERED: KETOROLAC 30 MG/ML VIAL IVP ONE (12:45)
[2022-08-29] MEDS ORDERED: NS 100 ML (IVPB) BAG IV ONE (12:45)
[2022-08-29] MEDS ORDERED: ONDANSETRON 4 MG/2 ML (SDV) Z0FRAN IVP ONE (12:45)
[2022-08-29] MEDS ORDERED: HOLD METFORMIN - RECEIVED CONTRAST 20 ML VIAL IV SCH (12:45)
[2022-08-29] MEDS ORDERED: IOHEXOL 350 MG/ML 100 ML (OMNIPAQUE 350) VIAL IV ONE (12:45)
[2022-08-29 12:48] LABS: ALBUMIN 4.5 GM/DL (3.2-4.5); POTASSIUM 3.8 MMOL/L (3.6-5.0)
[2022-08-29 12:49] LABS: CALCIUM 9.4 MG/DL (8.5-10.1)
[2022-08-29 12:51] LABS: TOTAL PROTEIN 7.9 GM/DL (6.4-8.2)
[2022-08-29 12:52] LABS: BILIRUBIN,TOTAL 0.4 MG/DL (0.1-1.0)
[2022-08-29 12:54] LABS: CREATININE SERUM 0.78 MG/DL (0.60-1.30)
[2022-08-29 13:07] LABS: BILIRUBIN,URINE NEGATIVE (NEGATIVE); CLARITY,URINE CLEAR; COLOR,URINE YELLOW; GLUCOSE, URINE (UA) NEGATIVE (NEGATIVE); KETONES,URINE NEGATIVE (NEGATIVE); LEUKOCYTE ESTERASE ,URINE NEGATIVE (NEGATIVE); NITRITE,URINE NEGATIVE (NEGATIVE); PROTEIN,URINE NEGATIVE (NEGATIVE)
[2022-08-29 13:15] LABS: BACTERIA,URINE NEGATIVE /HPF; SQUAMOUS EPITHELIAL CELL,UR RARE /HPF
--- NOTE | 2022-08-29 13:41 | Diagnostic Imaging Report ---
EXAMINATION: CT abdomen and pelvis with intravenous contrast. TECHNIQUE: Multiple contiguous axial images were obtained through the abdomen and pelvis after the uneventful administration of intravenous contrast. All CT scans use one or more of the following dose optimizing techniques: automated exposure control, MA and/or KvP adjustment based on patient size and exam type or iterative reconstruction. HISTORY: Lower abdominal pain. COMPARISON: 04/04/2022. FINDINGS: The heart is unremarkable. The included lung bases are clear. Nonobstructing calculi are seen in the inferior pole of the right kidney measuring up to 3 mm. No hydronephrosis or solid renal mass. The liver, spleen, pancreas, and adrenal glands have a normal appearance. The gallbladder is surgically absent. There is no pathologically enlarged mesenteric or retroperitoneal adenopathy. The bowel loops are nondilated. The appendix is surgically absent. There is no free fluid or free air. No acute osseous abnormalities. Ureters and bladder are grossly normal. There is no free air, loculated collection, or adenopathy in the pelvis. IMPRESSION: 1. No acute abnormalities in the abdomen and pelvis. No bowel obstruction. No free fluid or free air. Dictated by: Dictated on workstation # [id number]
[2022-08-29 14:08] VITALS: BP 96/60
== END 2022-08-29 14:08 | disposition home or self-care (01) ==
LOC: EDUNIT# 11:37 → ER 11:40
DX: R10.11 Right upper quadrant pain (principal); N20.0 Calculus of kidney; F17.290 Nicotine dependence, other tobacco product, uncomplicated; Z87.19 Personal history of other diseases of the digestive system; Z90.49 Acquired absence of other specified parts of digestive tract
CPT/HCPCS: 36415; 74177; 80053; 81000; 83690; 84703; 85025